=== PATIENT | male | born 1960 | race Caucasian/White ===

== ENCOUNTER → 2017-10-07 16:13 | Outpatient (CLI) | payer BC, SELFPAY ==
[2017-10-07 17:18] LABS: Absolute Lymphocyte Count 1.33 X10^3/ul (0.83-4.51); Absolute Neutrophil Count 5.4 X10^3/uL (2.0-7.7); Basophil# 0.02 X10^3/uL; Basophil% 0.3 % (0-1); Eosinophil# 0.11 X10^3/uL; Eosinophils% 1.5 % (0-5); Hematocrit 42.8 % (40-54); Hemoglobin 14.4 g/dl (13.0-16.5); Lymphocyte # 1.33 X10^3/ul (4.0); Lymphocyte % 17.7 % (19-41); Mean Corp Hgb Conc 33.6 g/gl (32-36); Mean Corpuscular Hgb 29.5 pg (27.0-32.0); Mean Corpuscular Volume 87.7 fL (80-94); Mean Platelet Vol. 9.7 fl (6.2-12.0); Monocyte# 0.68 X10^3/uL; Neutrophil # 5.39 X10^3/uL (2.7-7.7); Neutrophil % 71.5 % (47-70); Platelet Count 353 K/mm3 (150-450); RBC Distribution Width CV 12.9 % (11.6-14.6); RBC Distribution Width SD 41.5 fl (35.1-43.9); Red Blood Count 4.88 M/mm3 (4.6-6.2); White Blood Count 7.5 K/mm3 (4.4-11.0)
[2017-10-07 17:19] LABS: POSITIVE COUNT NO; POSITIVE DIFFERENTIAL NO; POSITIVE MORPHOLOGY NO
[2017-10-07 18:02] LABS: ALB/GLOB Ratio 1.1 RATIO (0.9-2.4); AST(SGOT) 18 U/L (15-37); Alanine Aminotransfer ALT/SGPT 19 U/L (16-61); Albumin, Serum 3.8 g/dL (3.2-5.0); Alkaline Phosphatase 45 U/L (45-117); Anion Gap 11 (5-15); BUN 18 mg/dL (7-18); BUN/Creat Ratio 15.3 RATIO (10-20); Calcium,Total 8.8 mg/dL (8.5-10.1); Chloride 108 mmol/L (98-107); Creatinine, Serum 1.18 mg/dL (0.70-1.30); EST Glomerular Filtration Rate 68 mL/min (>60); Est Glom Filt Rate - Afr Amer 82 mL/min (>60); Globulin 3.6 g/dL (2.2-4.2); Glucose 85 mg/dL (74-106); Potassium 3.7 mmol/L (3.5-5.1); Protein, Total 7.4 g/dL (6.4-8.2); Sodium Level 141 mmol/L (136-145)
[2017-10-08 06:50] LABS: Base Excess 0 mmol/L (-2 to +2); Bicarbonate 25.2 mmol/L (22-26); Blood Gas Specimen Type ART; O2 Delivery Device Room Air; PO2 87 mmHG (75-100); SITE R Brachial; SO2 96 % (95-99); Time Given 1650; Total Carbon Dioxide 26 mmol/L; pCO2 41.4 mmHg (35-45); pH 7.39 (7.35-7.45)
== END ==
PROVIDERS: Family Provider Family Medicine; PCP Family Medicine; Visit Provider Internal Medicine
DX: R23.0 Cyanosis (principal)
CPT/HCPCS: 36415; 36600; 80053; 82803; 85025

== ENCOUNTER 2018-01-03 13:03 | Observation (INO) | payer BC, SELFPAY ==
[2018-01-03] VITALS (11 sets, daily range): BP systolic 106–158; BP diastolic 59–105; PULSE 58–85; RESP 16–19; TEMP 36.4–37.1; O2SAT 96–100; BMI 28.3; BMI 26.5; BMI 26.6; BMI 26.7
--- NOTE | 2018-01-03 13:06 | CT_ITS ---
STUDY: CTA OF THE BRAIN REASON FOR EXAM: Male, 57 years old. Stroke protocol. RADIATION DOSAGE (If Supplied By Facility): CTDIvol = ( 15.0+15.6 ) mGy, DLP = ( 580.87 ) mGycm TECHNIQUE: CT angiography was performed with a multi-detector CT scanner. Data acquisition was obtained from the skull base through the vertex following intravenous administration of ml of . MIP images were reconstructed from the axial data set. Post-processing of the angiographic images was performed, with multiplanar reformation and 3D reconstruction. Individualized dose optimization techniques were used for this CT. COMPARISON: None. FINDINGS: HEAD AND NECK OVERVIEW: Apical lungs clear, apical thoracic cage intact, superior mediastinal normal. No supraclavicular mass or lymphadenopathy. There are multiple tiny low-density nodules of the thyroid gland bilaterally without dominant nodule. There is no cervical mass or lymphadenopathy. Pharyngeal and laryngeal structures appear normal. Normal appearance of the parotid and submandibular glands. Mild multilevel cervical disc degeneration with uncovertebral joint hypertrophy contributing to mild foraminal narrowing at C3-C4. Craniofacial osseous structures intact. There are multiple retention cyst at the bases of the maxillary sinuses bilaterally greater on the left. Mildly comparison thickening of the anterior ethmoids. Mastoid air cells and middle ear cavities clear. ORBITAL CONTENTS, SCALP, SUPERFICIAL FACIAL AND DEEP FACIAL SOFT TISSUES EXHIBIT NO ACUTE PROCESS. CERVICAL VASCULATURE: Normal aorta without plaque, widely patent three-vessel cervical arch branching. Normal subclavian arteries. Tiny focus of calcified plaque right carotid bulb without stenosis. Otherwise normal bilateral carotid arteries. No dissection. Normal bilateral cervical vertebral arteries. INTRACRANIAL VASCULATURE: Normal enhancement and arborization of the dural venous sinuses and major venous tributaries. Normal supraclinoid ICA. Normal anterior and posterior communicating arteries. Normal bilateral anterior and middle cerebral arteries. Normal enhancement of the bilateral ophthalmic arteries. Normal intracranial vertebral arteries, basilar artery, major cerebellopontine divisions and posterior cerebral arteries. BRAIN PARENCHYMA: No acute process. No chronic involutional changes. No intracranial bleed. IMPRESSION: Normal appearance of the cervical and intracranial arterial vasculature. Normal appearance of the dural venous sinuses and major venous tributaries. Chronic paranasal sinus disease. Normal appearance of the orbital contents, optic nerves, ophthalmic arteries, optic chiasm and suprasellar cistern and optic radiations. N.B. : The above information has been verbally conveyed by Joao Melendez MD to Dr New MD, on 01/03/2018 13:56:26 (ET). Electronically Signed: Joao Melendez MD at 13:50 EST Tel , Service support , STUDY: CTA NECK WITH CONTRAST REASON FOR EXAM: Male, 57 years old. Stroke protocol. RADIATION DOSAGE (If Supplied By Facility): CTDIvol = ( 15.0+15.6 ) mGy, DLP = ( 580.87 ) mGycm TECHNIQUE: CT angiography was performed with a multi-detector CT scanner. Data acquisition was obtained from the skull base through the vertex following intravenous administration of ml of . MIP images were reconstructed from the axial data set. Post-processing of the angiographic images was performed, with multiplanar reformation and 3D reconstruction. Individualized dose optimization techniques were used for this CT. COMPARISON: None. FINDINGS: HEAD AND NECK OVERVIEW: Apical lungs clear, apical thoracic cage intact, superior mediastinal normal. No supraclavicular mass or lymphadenopathy. There are multiple tiny low-density nodules of the thyroid gland bilaterally without dominant nodule. There is no cervical mass or lymphadenopathy. Pharyngeal and laryngeal structures appear normal. Normal appearance of the parotid and submandibular glands. Mild multilevel cervical disc degeneration with uncovertebral joint hypertrophy contributing to mild foraminal narrowing at C3-C4. Craniofacial osseous structures intact. There are multiple retention cyst at the bases of the maxillary sinuses bilaterally greater on the left. Mildly comparison thickening of the anterior ethmoids. Mastoid air cells and middle ear cavities clear. Orbital contents, scalp, superficial facial and deep facial soft tissues exhibit no acute process. CERVICAL VASCULATURE: Normal aorta without plaque, widely patent three-vessel cervical arch branching. Normal subclavian arteries. Tiny focus of calcified plaque right carotid bulb without stenosis. Otherwise normal bilateral carotid arteries. No dissection. Normal bilateral cervical vertebral arteries. INTRACRANIAL VASCULATURE: Normal enhancement and arborization of the dural venous sinuses and major venous tributaries. Normal supraclinoid ICA. Normal anterior and posterior communicating arteries. Normal bilateral anterior and middle cerebral arteries. Normal enhancement of the bilateral ophthalmic arteries. Normal intracranial vertebral arteries, basilar artery, major cerebellopontine divisions and posterior cerebral arteries. BRAIN PARENCHYMA: No acute process. No chronic involutional changes. No intracranial bleed. CT/CTA Head W/WO Contrast IMPRESSION: Normal appearance of the cervical and intracranial arterial vasculature. Normal appearance of the dural venous sinuses and major venous tributaries. Chronic paranasal sinus disease. Normal appearance of the orbital contents, optic nerves, ophthalmic arteries, optic chiasm and suprasellar cistern and optic radiations. Stenosis (if any)is quantified according to The [place] Symptomatic Carotid Endarterectomy Trial (NASCET). Marta H, et al. Quantitative Vascular Measurements in Arterial Occlusive Disease. RadioGraphics 2005;25:4911-7222. N.B. : The above information has been verbally conveyed by Joao Melendez MD to Dr New MD, on 01/03/2018 13:56:26 (ET). Electronically Signed: Joao Melendez MD at 13:57 EST Tel , Service support ,
--- NOTE | 2018-01-03 13:06 | CT_ITS ---
STUDY: CT BRAIN WITHOUT CONTRAST REASON FOR EXAM: Male, 57 years old. Stroke RADIATION DOSAGE (If Supplied By Facility): CTDIvol = ( 60.81 ) mGy, DLP = ( 1044.28 ) mGycm TECHNIQUE: Transaxial CT imaging of the brain was performed without administration of intravenous contrast material. Coronal and sagittal 2-D MPR Individualized dose optimization techniques were used for this CT. COMPARISON: None. FINDINGS: There are multiple mucous retention cyst at the base of the left maxillary sinus. There is mildly comparison thickening within the anterior ethmoid air cells bilaterally. The mastoid air cells and middle ear cavities are clear. Symmetric and grossly normal features of the vestibular and acoustic apparatus of the temporal bones. Craniofacial osseous structures are intact. Extra cranial soft tissues including orbital contents appear normal. The brain parenchyma appears normal in morphology and attenuation characteristics throughout with no acute intracranial bleed, mass or mass effect nor any specific evidence of territorial infarct. Normal features of the pituitary, brainstem. There is slight cerebellar tonsillar ectopia, mildly crowding the brainstem at the foramen magnum, but unlikely to meet criteria for Chiari malformation. CT/Brain/Head without Contrast IMPRESSION: No acute intracranial process. ASPECTS score: 10 N.B. : The above information has been verbally conveyed by Joao Melendez MD to Koby Wolff on 01/03/2018 13:30:04 (ET). Electronically Signed: Joao Melendez MD at 13:29 EST Tel , Service support ,
--- NOTE | 2018-01-03 13:06 | EKG12_ITS ---
Test Reason : STROKE ALERT Blood Pressure : / mmHG Vent. Rate : 073 BPM Atrial Rate : 073 BPM P-R Int : 142 ms QRS Dur : 094 ms QT Int : 384 ms P-R-T Axes : 068 007 020 degrees QTc Int : 423 ms Normal sinus rhythm Poor R wave progression Non specific T wave abnormality Confirmed by JANELLE MORALES MD ([id number]), fan mail editor CLAIRE BARNETT ([id number]) on 01/05/2018 4:17:10 PM Also confirmed by JUNG VEGA MD ([id number]), fan mail editor CLAIRE BARNETT ([id number]) on 01/05/2018 4:17:55 PM Referred By: PATSY Confirmed By:JUNG VEGA MD
--- NOTE | 2018-01-03 13:06 | CT_ITS ---
STUDY: CTA OF THE BRAIN REASON FOR EXAM: Male, 57 years old. Stroke protocol. RADIATION DOSAGE (If Supplied By Facility): CTDIvol = ( 15.0+15.6 ) mGy, DLP = ( 580.87 ) mGycm TECHNIQUE: CT angiography was performed with a multi-detector CT scanner. Data acquisition was obtained from the skull base through the vertex following intravenous administration of ml of . MIP images were reconstructed from the axial data set. Post-processing of the angiographic images was performed, with multiplanar reformation and 3D reconstruction. Individualized dose optimization techniques were used for this CT. COMPARISON: None. FINDINGS: HEAD AND NECK OVERVIEW: Apical lungs clear, apical thoracic cage intact, superior mediastinal normal. No supraclavicular mass or lymphadenopathy. There are multiple tiny low-density nodules of the thyroid gland bilaterally without dominant nodule. There is no cervical mass or lymphadenopathy. Pharyngeal and laryngeal structures appear normal. Normal appearance of the parotid and submandibular glands. Mild multilevel cervical disc degeneration with uncovertebral joint hypertrophy contributing to mild foraminal narrowing at C3-C4. Craniofacial osseous structures intact. There are multiple retention cyst at the bases of the maxillary sinuses bilaterally greater on the left. Mildly comparison thickening of the anterior ethmoids. Mastoid air cells and middle ear cavities clear. ORBITAL CONTENTS, SCALP, SUPERFICIAL FACIAL AND DEEP FACIAL SOFT TISSUES EXHIBIT NO ACUTE PROCESS. CERVICAL VASCULATURE: Normal aorta without plaque, widely patent three-vessel cervical arch branching. Normal subclavian arteries. Tiny focus of calcified plaque right carotid bulb without stenosis. Otherwise normal bilateral carotid arteries. No dissection. Normal bilateral cervical vertebral arteries. INTRACRANIAL VASCULATURE: Normal enhancement and arborization of the dural venous sinuses and major venous tributaries. Normal supraclinoid ICA. Normal anterior and posterior communicating arteries. Normal bilateral anterior and middle cerebral arteries. Normal enhancement of the bilateral ophthalmic arteries. Normal intracranial vertebral arteries, basilar artery, major cerebellopontine divisions and posterior cerebral arteries. BRAIN PARENCHYMA: No acute process. No chronic involutional changes. No intracranial bleed. IMPRESSION: Normal appearance of the cervical and intracranial arterial vasculature. Normal appearance of the dural venous sinuses and major venous tributaries. Chronic paranasal sinus disease. Normal appearance of the orbital contents, optic nerves, ophthalmic arteries, optic chiasm and suprasellar cistern and optic radiations. N.B. : The above information has been verbally conveyed by Joao Melendez MD to Dr New MD, on 01/03/2018 13:56:26 (ET). Electronically Signed: Joao Melendez MD at 13:50 EST Tel , Service support , STUDY: CTA NECK WITH CONTRAST REASON FOR EXAM: Male, 57 years old. Stroke protocol. RADIATION DOSAGE (If Supplied By Facility): CTDIvol = ( 15.0+15.6 ) mGy, DLP = ( 580.87 ) mGycm TECHNIQUE: CT angiography was performed with a multi-detector CT scanner. Data acquisition was obtained from the skull base through the vertex following intravenous administration of ml of . MIP images were reconstructed from the axial data set. Post-processing of the angiographic images was performed, with multiplanar reformation and 3D reconstruction. Individualized dose optimization techniques were used for this CT. COMPARISON: None. FINDINGS: HEAD AND NECK OVERVIEW: Apical lungs clear, apical thoracic cage intact, superior mediastinal normal. No supraclavicular mass or lymphadenopathy. There are multiple tiny low-density nodules of the thyroid gland bilaterally without dominant nodule. There is no cervical mass or lymphadenopathy. Pharyngeal and laryngeal structures appear normal. Normal appearance of the parotid and submandibular glands. Mild multilevel cervical disc degeneration with uncovertebral joint hypertrophy contributing to mild foraminal narrowing at C3-C4. Craniofacial osseous structures intact. There are multiple retention cyst at the bases of the maxillary sinuses bilaterally greater on the left. Mildly comparison thickening of the anterior ethmoids. Mastoid air cells and middle ear cavities clear. Orbital contents, scalp, superficial facial and deep facial soft tissues exhibit no acute process. CERVICAL VASCULATURE: Normal aorta without plaque, widely patent three-vessel cervical arch branching. Normal subclavian arteries. Tiny focus of calcified plaque right carotid bulb without stenosis. Otherwise normal bilateral carotid arteries. No dissection. Normal bilateral cervical vertebral arteries. INTRACRANIAL VASCULATURE: Normal enhancement and arborization of the dural venous sinuses and major venous tributaries. Normal supraclinoid ICA. Normal anterior and posterior communicating arteries. Normal bilateral anterior and middle cerebral arteries. Normal enhancement of the bilateral ophthalmic arteries. Normal intracranial vertebral arteries, basilar artery, major cerebellopontine divisions and posterior cerebral arteries. BRAIN PARENCHYMA: No acute process. No chronic involutional changes. No intracranial bleed. CT/CTA Neck W/WO Contrast IMPRESSION: Normal appearance of the cervical and intracranial arterial vasculature. Normal appearance of the dural venous sinuses and major venous tributaries. Chronic paranasal sinus disease. Normal appearance of the orbital contents, optic nerves, ophthalmic arteries, optic chiasm and suprasellar cistern and optic radiations. Stenosis (if any)is quantified according to The [place] Symptomatic Carotid Endarterectomy Trial (NASCET). Marta H, et al. Quantitative Vascular Measurements in Arterial Occlusive Disease. RadioGraphics 2005;25:7546-9214. N.B. : The above information has been verbally conveyed by Joao Melendez MD to Dr New MD, on 01/03/2018 13:56:26 (ET). Electronically Signed: Joao Melendez MD at 13:57 EST Tel , Service support ,
[2018-01-03 13:11] LABS: Bedside Glucose 144 mg/dL (70-110)
--- NOTE | 2018-01-03 13:15 | CM.ED ---
Addendum entered by Cici Dan 01/03/18 13:17: Social Work Note Suzanne does confirm that the pt does not have a living will, but reports that she is the HCPOA. DONNA Tenorio LISW Original Note: Social Work Note Responded to stroke alert. Pt's , Suzanne, present. Suzanne declines to have this SW contact anyone. 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 Reports that she they are familiar with hospitals as they had a son that was chronically ill and passed two years ago. Emotional support provided, and Suzanne made aware that SW is available if needs arise. DONNA Tenorio LISW
[2018-01-03 13:22] LABS: Absolute Lymphocyte Count 0.88 X10^3/ul (0.83-4.51); Absolute Neutrophil Count 5.1 X10^3/uL (2.0-7.7); Basophil# 0.01 X10^3/uL; Basophil% 0.2 % (0-1); Eosinophil# 0.03 X10^3/uL; Eosinophils% 0.5 % (0-5); Hematocrit 42.3 % (40-54); Hemoglobin 14.5 g/dl (13.0-16.5); Lymphocyte # 0.88 X10^3/ul (4.0); Lymphocyte % 13.8 % (19-41); Mean Corp Hgb Conc 34.3 g/gl (32-36); Mean Corpuscular Volume 87.4 fL (80-94); Mean Platelet Vol. 9.1 fl (6.2-12.0); Monocyte# 0.39 X10^3/uL; Monocyte% 6.1 % (0-10); Neutrophil # 5.08 X10^3/uL (2.7-7.7); Neutrophil % 79.4 % (47-70); Platelet Count 369 K/mm3 (150-450); RBC Distribution Width CV 12.8 % (11.6-14.6); RBC Distribution Width SD 41.1 fl (35.1-43.9); Red Blood Count 4.84 M/mm3 (4.6-6.2); White Blood Count 6.4 K/mm3 (4.4-11.0)
[2018-01-03 13:24] LABS: POSITIVE COUNT NO; POSITIVE DIFFERENTIAL NO; POSITIVE MORPHOLOGY NO
[2018-01-03 13:34] LABS: Prothrombin Time (Protime)PT. 13.3 SECONDS (11.7-14.9)
[2018-01-03 13:35] LABS: Partial Thromboplast Time 31.5 Seconds (24.1-36.2)
[2018-01-03 13:36] LABS: Anion Gap 5 (5-15); BUN 14 mg/dL (7-18); BUN/Creat Ratio 11.3 RATIO (10-20); Calcium,Total 8.6 mg/dL (8.5-10.1); Chloride 105 mmol/L (98-107); Creatinine, Serum 1.24 mg/dL (0.70-1.30); EST Glomerular Filtration Rate 64 mL/min (>60); Est Glom Filt Rate - Afr Amer 77 mL/min (>60); Estimated Creatinine Clearance 67.87 ml/min; Glucose 138 mg/dL (74-106); Potassium 3.5 mmol/L (3.5-5.1); Sodium Level 137 mmol/L (136-145)
--- NOTE | 2018-01-03 14:02 | ED.VISSUMM ---
- ER Visit Summary Date of Service: 01/03/18 Chief Complaint: Loss of left-sided vision History of Present Illness: The patient is a 57 M with no sniffing a past medical history presents because he could not see things on the left side and denied any motor weakness. This occurred while writing. He denied headache. Denied nausea vomiting. He denies trouble with speech or swallowing. He denied problems with balance or walking. He states his visual symptoms have resolved. He is a non-smoker. Physical Examination: Vital signs noted and unremarkable. NIH is 1 for altered sensation on the left side. Based on patient's description he had a left homonymous hemianopsia. Head is atraumatic normocephalic. Pupils are equal round reactive. Extraocular muscles are intact. TMs are pearly white with landmarks noted. Nares patent with no drainage. Posterior pharynx without erythema or exudate. Uvula is midline. There is no dysphonia or dysphasia. Trachea is midline. There is no stridor with auscultation of the neck. Heart is regular without murmur, gallop or rub. S1 and S2 are normal. Lungs are clear to auscultation with good movement of air bilaterally. Abdomen soft nontender. Patient is alert and oriented ?3. Motor is 5 over 5. Sensory is not intact. DTRs are symmetric with no clonus or Babinski sign. Cranial 2 through 12 are intact. Cerebellar testing is normal. Test Results: CT of the head without contrast and CTA of the head and neck were unremarkable per radiologist. CBC normal. Basic metabolic panel is marked for an elevated glucose 138. Coags normal. Emergency Department Course and Treatment: Stroke order set was initiated since patient symptoms started 1 hour prior to presentation. Case was discussed with hospitalist, neurologist and radiologist. There is evidence of chronic sinus problems. Differential includes atypical migraine headache, TIA, stroke Treatment Plan: PCU 23 observation for further testing Disposition: PCU Impression: Right hemispheric TIA with left homonymous hemianopsia and altered sensation left This note was generated with [employer] dictation software. It may contain incorrect words, spelling, and punctuation that were not noted in review of the chart prior to signing ED Disposition - Plan for ED Patient: Chief Complaint: Neuro S/Sx Referrals: Edvin Tobar DO [Primary Care Provider] -
--- NOTE | 2018-01-03 14:07 | ED.DCSUM_ITS ---
- ER Visit Summary Date of Service: 01/03/18 Chief Complaint: Loss of left-sided vision History of Present Illness: The patient is a 57 M with no sniffing a past medical history presents because he could not see things on the left side and denied any motor weakness. This occurred while writing. He denied headache. Denied nausea vomiting. He denies trouble with speech or swallowing. He denied problems with balance or walking. He states his visual symptoms have resolved. He is a non-smoker. Physical Examination: Vital signs noted and unremarkable. NIH is 1 for altered sensation on the left side. Based on patient's description he had a left homonymous hemianopsia. Head is atraumatic normocephalic. Pupils are equal round reactive. Extraocular muscles are intact. TMs are pearly white with landmarks noted. Nares patent with no drainage. Posterior pharynx without er ythema or exudate. Uvula is midline. There is no dysphonia or dysphasia. Trachea is midline. There is no stridor with auscultation of the neck. Heart is regular without murmur, gallop or rub. S1 and S2 are normal. Lungs are clear to auscultation with good movement of air bilaterally. Abdomen soft nontender. Patient is alert and oriented ?3. Motor is 5 over 5. Sensory is not intact. DTRs are symmetric with no clonus or Babinski sign. Cranial 2 through 12 are intact. Cerebellar testing is normal. Test Results: CT of the head without contrast and CTA of the head and neck were unremarkable per radiologist. CBC normal. Basic metabolic panel is marked for an elevated glucose 138. Coags normal. Emergency Department Course and Treatment: Stroke order set was initiated since patient symptoms started 1 hour prior to presentation. Case was discussed with hospitalist, neurologist and radiologist. There is evidence of chronic sinus problems. Differential includes atypical migraine headache, TIA, stroke Treatment Plan: PCU 23 observation for further testing Disposition: PCU Impression: Right hemispheric TIA with left homonymous hemianopsia and altered sensation left This note was generated with [employer] software. It may contain incorrect words, spelling, and punctuation that were not noted in review of the chart prior to signing ED Disposition - Plan for ED Patient: Chief Complaint: Neuro S/Sx Referrals: Edvin Tobar DO [Primary Care Provider] -
--- NOTE | 2018-01-03 15:33 | MRI_ITS ---
STUDY: MRI BRAIN WITHOUT CONTRAST REASON FOR EXAM: Male, 57 years old. CVA TECHNIQUE: Standardized multiplanar fat and water weighted pulse sequences were obtained. COMPARISON: CT of the brain on January 03, 2018 FINDINGS: Normal size of the ventricles and extra-axial spaces for the patient's age. Minor periventricular white matter ischemic changes without mass effect or restricted diffusion. Normal bilateral basal ganglia. Normal thalami. There is no extra-axial fluid accumulation. Normal flow voids within the major intracranial circulation suggesting patency by spin echo criteria. Partial empty sella deformity likely of no significance. Normal, infundibular stalk, optic chiasm and hypothalamus. Normal tectal plate and pineal gland. Normal midbrain, wagner and medulla. Normal cerebellum. Normal basal cisterns. Normal bilateral temporal bones. Normal bilateral internal auditory canals. No demonstrated orbital abnormality, within the constraints of a routine brain study. There is mucosal thickening of the maxillary and ethmoid sinuses bilaterally greater on the left. Normal calvarium and skull base. Normal visualized soft tissue structures. Normal visualized upper cervical spine. MRI/Brain without Contrast IMPRESSION: Minor periventricular white matter ischemic changes without evidence for acute infarct Electronically Signed: Tone Mclaughlin MD at 23:19 EST , Service support ,
--- NOTE | 2018-01-03 16:19 | PCM.HP.STD ---
Problem List (1) TIA (transient ischemic attack) Status: Acute (2) Fingernails, bluish Status: Chronic (3) RLL pneumonia Status: Resolved History of Present Illness Date of Admission: 01/03/18 Chief Complaint: Left-sided blurry vision/sudden blindness The patient is a 57 year old M with no significant past medical history except a history of pneumonia in the past came to ER with sudden onset of left-sided blindness while at work today. Patient also felt difficulty in finding words to express himself. This episode lasted about 20 minutes and then his dizziness started coming back. As the vision started coming back he felt mild headache/heaviness. Patient further said he is not able to see the writings on the left side. He was able to understand other people speech but was not able to find words to express himself. Denies other symptoms of weakness, numbness, involuntary movement, urinary incontinence, dysphagia. Patient denies any chest pain/pressure or missed heartbeat/arrhythmia. Patient had history of about dizziness/headache and blurry vision about 10 years ago and he saw PCP after that and was thought of migraine-like symptoms In ED, patient had CT head and CTA of head and neck that were read unremarkable by the radiologist. EKG shows normal sinus rhythm at 73 bpm. Normal QRS duration 94 ms. [] Basic lab work was unremarkable except glucose and BMP 138 and Accu-Chek glucose 144. Past Medical History Past Medical History (Chronic Problems): Chronic Problems (Last Updated 10/07/17 @ 15:23 by Marcie Duffy) Fingernails, bluish (Chronic) Medical History: Medical History (Last Updated 10/07/17 @ 15:23 by Marcie Duffy) Heart murmur R01.1 High cholesterol E78.00 Allergies No Known Allergies Allergy (Verified 03/10/17 17:41) Home Medications: Ambulatory Orders Medication Instructions Recorded loratadine 10 mg tablet 10 mg PO DAILY 10/07/17 Surgical History: Surgical History (Last Updated 10/07/17 @ 15:31 by Marcie Duffy) History of hernia repair Z98.890, Z87.19 Smoking Status: Never smoker Tobacco Use: Non-smoker - *Family History Paternal Family History: Family History (Last Updated 10/07/17 @ 15:32 by Marcie Duffy) Mother CVA (cerebral vascular accident) Thyroid disorder Father Heart disease Brother Thyroid disorder History Items: Heart Disease Review of Systems Constitutional: Denies: Chills, Fever, Weight Change HEENT: Reports: Head Aches, Visual Changes. Denies: Sinus Congestion, Sinus Drainage Cardiovascular: Denies: Chest Pain, Palpitations Respiratory: Denies: Cough, Shortness of breath at rest, Sputum production Gastrointestinal: Denies: Abdominal Pain, Nausea, Vomiting Genitourinary: Denies: Dysuria, Frequency, Hematuria, Hesitancy Musculoskeletal: Denies: Joint Pain, Joint Tenderness Skin: Denies: Rash, Wounds Neurological: Denies: Numbness, Tingling, Focal weakness Psychiatric: Denies: Anxiety, Depression, Homicidal Ideations, Suicidal Ideations Hematologic/ Lymphatic: Denies: Easy Bruising, Easy Bleeding VTE Information - Inpt Only VTE Present on Admission: No VTE Mechan Device Prophylaxis: None VTE Pharm Prophylaxis ordered?: Yes Patient Problems: Active and Suspected Problems (Last Updated 10/07/17 @ 15:23 by Marcie Duffy) TIA (transient ischemic attack) (Acute) - Physical Exam General: Alert, Oriented x3, Cooperative HEENT: Atraumatic, PERRLA, EOMI, Normocephalic Oral: Moist Mucosa Neck: Supple, No JVD, Negative Carotid Bruits Lungs: Clear to auscultation, Normal air movement, No rhonchi, No wheeze, No rales Cardiovascular: Regular rate, Regular Rhythm, Normal S1, Normal S2, No murmurs Abdomen: Bowel Sounds Present, Soft, Non Tender, Non-Distended Extremities: No edema, Capillary Refill Less than 3 Seconds Skin: No rashes, No breakdown Musculoskeletal: No Tenderness to Palpation of Joints or Extremities Neurological: Cranial nerves II-XII grossly intact, Deep Tendon Reflexes 2+/4 and Symmetrical, Motor Exam 5/5 strength throughout, - - NIH stroke scale of 1 as per ER physician. When I examined the patient, Gross visual confrontation test for field of vision normal. NIHSS 1 for decreased sensation. Psych/Mental Status: Normal Affect, Appropriate Vital Signs Temp Pulse Resp BP Pulse Ox 98.7 F 78 18 142/105 H 98 01/03/18 15:15 01/03/18 15:15 01/03/18 15:15 01/03/18 15:15 01/03/18 15:15 Oxygen Delivery Method Room Air Weight: 180 lb 11.2 oz Body Mass Index (BMI) 26.6 Finger Stick Blood Glucose 144 Laboratory Tests Past 24 Hrs 01/03/18 01/03/18 01/03/18 13:08 13:08 13:08 WBC 6.4 RBC 4.84 Hgb 14.5 Hct 42.3 MCV 87.4 MCH 30.0 MCHC 34.3 RDW 12.8 RDW Differential 41.1 Plt Count 369 MPV 9.1 Immature Gran % (Auto) 0.000 Neut % (Auto) 79.4 H Lymph % (Auto) 13.8 L [place] % (Auto) 6.1 Eos % (Auto) 0.5 Baso % (Auto) 0.2 Absolute Neuts (auto) 5.1 Absolute Lymphs (auto) 0.88 Total Counted Not Reportable PT 13.3 INR 1.0 APTT 31.5 Sodium 137 Potassium 3.5 Chloride 105 Carbon Dioxide 27.0 Anion Gap 5 BUN 14 Creatinine 1.24 Estim Creat Clear Calc 67.87 Est GFR (MDRD) Af Amer 77 Est GFR (MDRD) Non-Af 64 BUN/Creatinine Ratio 11.3 Glucose 138 H Calcium 8.6 Troponin I < 0.015 TSH 01/03/18 15:59 WBC RBC Hgb Hct MCV MCH MCHC RDW RDW Differential Plt Count MPV Immature Gran % (Auto) Neut % (Auto) Lymph % (Auto) [place] % (Auto) Eos % (Auto) Baso % (Auto) Absolute Neuts (auto) Absolute Lymphs (auto) Total Counted PT INR APTT Sodium Potassium Chloride Carbon Dioxide Anion Gap BUN Creatinine Estim Creat Clear Calc Est GFR (MDRD) Af Amer Est GFR (MDRD) Non-Af BUN/Creatinine Ratio Glucose Calcium Troponin I Pending TSH Pending POC Glucose 01/03/18 13:06 POC Glucose 144 H Assessment/Plan All Active Problems (Last Updated 10/07/17 @ 15:23 by Marcie Duffy) TIA (transient ischemic attack) (Acute) RLL pneumonia (Resolved) The patient is a 57 year old M with no significant past medical history except a history of pneumonia in the past came to ER with sudden onset of left-sided blindness while at work today. Patient also felt difficulty in finding words to express himself. This episode lasted about 20 minutes and then his dizziness started coming back. As the vision started coming back he felt mild headache/heaviness. Patient further said he is not able to see the writings on the left side. He was able to understand other people speech but was not able to find words to express himself. Denies other symptoms of weakness, numbness, involuntary movement, urinary incontinence, dysphagia. Patient denies any chest pain/pressure or missed heartbeat/arrhythmia. Patient had history of about dizziness/headache and blurry vision about 10 years ago and he saw PCP after that and was thought of migraine-like symptoms In ED, patient had CT head and CTA of head and neck that were read unremarkable by the radiologist. EKG shows normal sinus rhythm at 73 bpm. Normal QRS duration 94 ms. [] Basic lab work was unremarkable except glucose and BMP 138 and Accu-Chek glucose 144. 1. Acute loss of vision on left sides possible left homonymous hemianopia suggestive of TIA:, Patient is being admitted in PCU. Stroke protocol with monitor and storage bin tender, cardiac enzymes, EKG, aspirin and statin. PT/OT and speech management. CT head does not show any acute change. CTA of head shows normal appearance of cervical and intracranial arterial vasculature. 2D echo ordered. Neurologist consult. MRI brain ordered. 2. Other possible diagnosis probably atypical migraine as there is doubtful history of migraine in the past: 3. Chronic sinusitis: Patient uses loratadine. Hold it. 4. DVT prophylaxis: On Lovenox 40 mg subcu daily. Clinical Impression(s) from Imaging Studies Head CTA 01/03/18 13:06 IMPRESSION: Normal appearance of the cervical and intracranial arterial vasculature. Normal appearance of the dural venous sinuses and major venous tributaries. Chronic paranasal sinus disease. Normal appearance of the orbital contents, optic nerves, ophthalmic arteries, optic chiasm and suprasellar cistern and optic radiations. Stenosis (if any)is quantified according to The [place] Symptomatic Carotid Endarterectomy Trial (NASCET). [place] H, et al. Quantitative Vascular Measurements in Arterial Occlusive Disease. [employer] 2005;25:4389-6513. Code Visit OBSV E&M: 09180 Initial observation care L3
[2018-01-03 16:45] LABS: Thyroid Stim Hormone (TSH) 3.23 uIU/mL (0.358-3.74)
--- NOTE | 2018-01-03 17:03 | CHAPLAIN ---
Type of Pastoral Visit ___ Initial Visit ___ Follow-up Visit ___ On-call Visit ___ General Patient Visit ___ Spiritual Assessment ___ Family Conference ___ Bereavement _x__ Rapid Response ___ Code Blue ___ Other (describe below) Pastoral Care Referral From _x__ Patient ___ Family ___ Nurse ___ Physician ___ Stave Cutting Supervisor ___ Surgery Technician ___ Other (describe below) Sacrament/Intervention ___ Active listening ___ Anointing ___ Orthodox ___ Bereavement ___ Communion ___ Dayana exploration ___ ___ Life review _x__ Prayer ___ Reconciliation ___ Sacrament of Sick _x__ Supportive presence ___ Wedding ___ Other (describe below) Pastoral Comments
[2018-01-03] MEDS: 0.9% NaCl Peripheral Flush Adult/Peds IV (17:22)
[2018-01-03] MEDS: 0.9% Normal Saline 1,000 ML 100 ML IV (17:22)
[2018-01-03] MEDS: Aspirin 81 MG TAB.CHEW PO (17:25)
[2018-01-03] MEDS: Enoxaparin 40 MG/0.4 ML Syringe SC (17:25)
[2018-01-03 17:26] LABS: Bedside Glucose 89 mg/dL (70-110)
[2018-01-03] MEDS: Acetaminophen 325 MG Tablet 650 MG PO (19:31)
[2018-01-03] MEDS: Famotidine 20 MG Tablet PO (21:25)
[2018-01-03] MEDS: Atorvastatin Calcium 80 MG Tablet PO (21:25)
[2018-01-03 21:36] LABS: Bedside Glucose 86 mg/dL (70-110)
[2018-01-04 03:00] VITALS: PULSE 56
[2018-01-04 03:32] VITALS: BP 109/65; PULSE 66; RESP 14; TEMP 36.6; O2SAT 100
[2018-01-04 04:33] VITALS: BMI 26.6
[2018-01-04] MEDS: 0.9% Normal Saline 1,000 ML 100 ML IV (05:26)
[2018-01-04 06:49] LABS: Cholesterol 192 mg/dL (200); High Density Lipoprotein 46 mg/dL; Triglycerides 117 mg/dL; Very Low Density Lipoprotein 23 mg/dL (5-40)
[2018-01-04 07:06] LABS: Bedside Glucose 109 mg/dL (70-110)
[2018-01-04 07:45] VITALS: BP 106/68; PULSE 73; RESP 18; TEMP 36.7; O2SAT 97
[2018-01-04 07:49] VITALS: PULSE 73
[2018-01-04 07:58] LABS: Hemoglobin A1c 5.1 % (4.2-6.3)
[2018-01-04] MEDS: Aspirin 81 MG TAB.CHEW PO (09:19)
[2018-01-04] MEDS: Famotidine 20 MG Tablet PO (09:19)
--- NOTE | 2018-01-04 09:47 | CON.PCM_ITS ---
Reason for Consult Date of Consultation: 01/04/18 Reason for Consultation: vision changes History of Present Illness: 57 yo left handed white male notes left vision changes yesterday while at work, now back to normal. similar episode 8 yrs ago. reports sinus headaches. takes claritin for sinus 3-4x per week. no tobacco, no asa. no family history of headache Per admit H&P: The patient is a 57 year old M with no significant past medical history except a history of pneumonia in the past came to ER with sudden onset of left-sided blindness while at work today. Patient also felt difficulty in finding words to express himself. This episode lasted about 20 minutes and then his dizziness started coming back. As the vision started coming back he felt mild headache/heaviness. Patient further said he is not able to see the writings on the left side. He was able to understand other people speech but was not able to find words to express himself. Denies other symptoms of weakness, numbness, involuntary movement, urinary incontinence, dysphagia. Patient denies any chest jossie n/pressure or missed heartbeat/arrhythmia. Patient had history of about dizziness/headache and blurry vision about 10 years ago and he saw PCP after that and was thought of migraine-like symptoms In ED, patient had CT head and CTA of head and neck that were read unremarkable by the radiologist. EKG shows normal sinus rhythm at 73 bpm. Normal QRS duration 94 ms. Past Medical History Past Medical History (Chronic Problems): Chronic Problems (Last Reviewed 01/04/18 @ 11:43 by Mauricio Conley MD) Fingernails, bluish (Chronic) Medical History: Medical History (Last Reviewed 01/04/18 @ 11:43 by Mauricio Conley MD) Heart murmur R01.1 High cholesterol E78.00 Allergies No Known Allergies Allergy (Verified 03/10/17 17:41) Home Medications: Ambulatory Orders Medication Instructions Recorded loratadine 10 mg tablet 10 mg PO DAILY 10/07/17 Surgical History: Surgical History (Last Reviewed 01/04/18 @ 11:43 by Mauricio Conley MD) History of hernia repair Z98.890, Z87.19 Smoking Status: Never smoker Tobacco Use: Non-smoker - *Family History Paternal Family History: Family History (Last Reviewed 01/04/18 @ 11:43 by Mauricio Conley MD) Mother CVA (cerebral vascular accident) Thyroid disorder Father Heart disease Brother Thyroid disorder History Items: Heart Disease Review of Systems Constitutional: Denies: Chills, Fever, Weight Change HEENT: Denies: Head Aches, Sinus Congestion, Sinus Drainage Cardiovascular: Denies: Chest Pain, Palpitations Respiratory: Denies: Cough, Shortness of breath at rest, Sputum production Gastrointestinal: Denies: Abdominal Pain, Nausea, Vomiting Genitourinary: Denies: Dysuria Musculoskeletal: Denies: Joint Pain, Joint Tenderness Skin: Denies: Rash, Wounds Neurological: Reports: Headaches. Denies: Focal weakness, Numbness, Tingling Psychiatric: Denies: Anxiety, Depression, Homicidal Ideations, Suicidal Ideations Hematologic/ Lymphatic: Denies: Easy Bruising, Easy Bleeding Patient Problems: Active and Suspected Problems (Last Reviewed 01/04/18 @ 11:43 by Mauricio Conley MD) TIA (transient ischemic attack) (Acute) - Physical Exam General: Alert, Oriented x3, Cooperative HEENT: Atraumatic, PERRLA, EOMI, Normocephalic Neck: Supple, No JVD, Negative Carotid Bruits Lungs: Clear to auscultation, Normal air movement Cardiovascular: Regular rate, No murmurs Abdomen: Bowel Sounds Present, Soft, Non Tender Extremities: No edema, Capillary Refill Less than 3 Seconds Skin: No rashes, No breakdown Musculoskeletal: No Tenderness to Palpation of Joints or Extremities Neurological: Cranial nerves II-XII grossly intact Psych/Mental Status: Normal Affect, Appropriate Vital Signs Temp Pulse Resp BP Pulse Ox 36.7 C 73 18 106/68 97 01/04/18 07:45 01/04/18 07:49 01/04/18 07:45 01/04/18 07:45 01/04/18 07:45 Oxygen Delivery Method Room Air Weight: 81.964 kg Body Mass Index (BMI) 26.6 Finger Stick Blood Glucose 144 Intake and Output for Last 24 Hours 01/02/18 01/03/18 01/04/18 23:59 23:59 23:59 Intake Total 684.2 / 684.2 562 / 562 Balance 684.2 / 684.2 562 / 562 Laboratory Tests Past 24 Hrs 01/03/18 01/03/18 01/03/18 13:08 13:08 13:08 WBC 6.4 RBC 4.84 Hgb 14.5 Hct 42.3 MCV 87.4 MCH 30.0 MCHC 34.3 RDW 12.8 RDW Differential 41.1 Plt Count 369 MPV 9.1 Immature Gran % (Auto) 0.000 Neut % (Auto) 79.4 H Lymph % (Auto) 13.8 L [place] % (Auto) 6.1 Eos % (Auto) 0.5 Baso % (Auto) 0.2 Absolute Neuts (auto) 5.1 Absolute Lymphs (auto) 0.88 Total Counted Not Reportable PT 13.3 INR 1.0 APTT 31.5 Sodium 137 Potassium 3.5 Chloride 105 Carbon Dioxide 27.0 Anion Gap 5 BUN 14 Creatinine 1.24 Estim Creat Clear Calc 67.87 Est GFR (MDRD) Af Amer 77 Est GFR (MDRD) Non-Af 64 BUN/Creatinine Ratio 11.3 Glucose 138 H Hemoglobin A1c Calcium 8.6 Troponin I < 0.015 Triglycerides Cholesterol LDL Cholesterol VLDL Cholesterol HDL Cholesterol TSH 01/03/18 01/03/18 01/04/18 15:59 18:53 05:30 WBC RBC Hgb Hct MCV MCH MCHC RDW RDW Differential Plt Count MPV Immature Gran % (Auto) Neut % (Auto) Lymph % (Auto) [place] % (Auto) Eos % (Auto) Baso % (Auto) Absolute Neuts (auto) Absolute Lymphs (auto) Total Counted PT INR APTT Sodium Potassium Chloride Carbon Dioxide Anion Gap BUN Creatinine Estim Creat Clear Calc Est GFR (MDRD) Af Amer Est GFR (MDRD) Non-Af BUN/Creatinine Ratio Glucose Hemoglobin A1c Calcium Troponin I < 0.015 < 0.015 Triglycerides 117 Cholesterol 192 LDL Cholesterol 123 VLDL Cholesterol 23 HDL Cholesterol 46 TSH 3.23 01/04/18 05:30 WBC RBC Hgb Hct MCV MCH MCHC RDW RDW Differential Plt Count MPV Immature Gran % (Auto) Neut % (Auto) Lymph % (Auto) [place] % (Auto) Eos % (Auto) Baso % (Auto) Absolute Neuts (auto) Absolute Lymphs (auto) Total Counted PT INR APTT Sodium Potassium Chloride Carbon Dioxide Anion Gap BUN Creatinine Estim Creat Clear Calc Est GFR (MDRD) Af Amer Est GFR (MDRD) Non-Af BUN/Creatinine Ratio Glucose Hemoglobin A1c 5.1 Calcium Troponin I Triglycerides Cholesterol LDL Cholesterol VLDL Cholesterol HDL Cholesterol TSH POC Glucose 01/04/18 01/03/18 01/03/18 06:55 21:23 17:18 POC Glucose 109 86 89 01/03/18 13:06 POC Glucose 144 H MRI reviewed, no acute. CTA of the head and neck reviewed, no significant carotid or vertebral stenosis Current Home Med List Medication Instructions Recorded Confirmed Type loratadine 10 mg tablet 10 mg PO DAILY 10/07/17 01/03/18 History Current Medications Generic Name Dose Route Start Last Admin Trade Name Freq PRN Reason Stop Dose Admin Acetaminophen 650 mg 01/03/18 15:33 01/03/18 19:31 Tylenol PO 650 mg Q4H PRN PRN Administration Headache/Temp>99F Aspirin 81 mg 01/03/18 16:45 01/04/18 09:19 Aspirin, Baby PO 81 mg DAILY@0800 ADDY Administration Atorvastatin Calcium 80 mg 01/03/18 22:00 01/03/18 21:25 Lipitor PO 80 mg QHS ADDY Administration Dextrose 0 gm 01/03/18 16:33 D50w Syringe IV X1 PRN Hypoglycemia Protocol Enoxaparin Sodium 40 mg 01/03/18 16:33 01/04/18 09:20 Lovenox SC Not Given DAILY ADDY Famotidine 20 mg 01/03/18 22:00 01/04/18 09:19 Pepcid PO 20 mg BID ADDY Administration Glucagon 1 mg 01/03/18 16:33 IM .X1 PRN Hypoglycemia Sodium Chloride 1,000 mls @ 100 mls/hr 01/03/18 15:35 01/04/18 05:26 IV 100 mls/hr .Q10H ADDY Administration Insulin Human Lispro 0 unit 01/03/18 22:00 01/04/18 11:32 Humalog Kwikpen (Bkc) SQ Not Given ACHS ADDY Protocol Sodium Chloride 5 - 30 ml 01/03/18 15:50 01/03/18 17:22 IV 10 ml UD PRN Administration SALINE FLUSH Assessment/Plan All Active Problems (Last Reviewed 01/04/18 @ 11:43 by Mauricio Conley MD) TIA (transient ischemic attack) (Acute) RLL pneumonia (Resolved) classic migraine aura, followed by headache, now resolved. also describes component of word finding difficulty. complicated by insomnia and stress, pt describes stress as primary problem lexapro 10mg f/u op with neuro and ent imaging negative ok to dc otherwise
[2018-01-04 11:09] VITALS: PULSE 78
--- NOTE | 2018-01-04 12:00 | DCINST_ITS ---
- Discharge Diagnoses Current Active Problems: Current Active and Chronic Problems (Last Reviewed 01/04/18 @ 11:43 by Mauricio Conley MD) TIA (transient ischemic attack) (Acute) You will use the following diet at home:: No restrictions Your food should be the consistency of: Regular Your liquids should be the consistency of: Regular/Thin Discharge Activity: Return to Normal Activity Weight Bearing Status: Full weight bearing Allergies/Adverse Reactions: Allergies No Known Allergies Allergy (Verified 03/10/17 17:41) Medications to take at Discharge loratadine 10 mg tablet 10 mg PO DAILY 10/07/17 Primary Care Physician: Edvin Tobar DO [Primary Care Provider] - Please follow up with your Primary Care Physician in: in one week Test Results: Test results from this visit will be discussed in further detail at your follow- up appointment, if applicable.
--- NOTE | 2018-01-06 14:35 | PCM.DC.SUM ---
Discharge Date and Diagnosis Date of Admission: 01/03/18 Date of Discharge: 01/04/18 - Primary Discharge Diagnosis #1 acute migraine - Secondary Discharge Diagnosis Chronic Problems (Last Reviewed 01/04/18 @ 11:43 by Mauricio Conley MD) Fingernails, bluish (Chronic) Hospital Course and Treatment Operations: None Procedures: None Summary of Care Provided: The patient is a 57 year old M was seen in the emergency room at [facility] with complaints of sudden onset of left-sided blindness while at work, patient also complained of difficulty in finding words when speaking. Patient also complained of headache when his vision returned to normal. Workup in the emergency room included a CT of the head and neck as well as a CT of the head all of which were unremarkable. CBC was normal, basic metabolic panel showed a blood glucose of 138 but was otherwise unremarkable. Patient was placed on PCU under observation status for possible TIA, he was seen in consultation by neurology who felt his symptoms were in keeping with migraine, MRI of the brain was performed and was unremarkable. Physical exam on 01/04/18: On examination he appeared in good health and spirits. Vital signs as documented. Skin warm and dry and without overt rashes. Neck without JVD. Lungs clear. Heart exam notable for regular rhythm, normal sounds and absence of murmurs, rubs or gallops. Abdomen unremarkable and without evidence of organomegaly, masses, or abdominal aortic enlargement. Extremities nonedematous. Neuro: Cranial nerves II through XII are grossly intact, no focal motor deficits were noted. Psych: Patient was alert and oriented x3, he did not appear anxious or depressed. Patient was seen and examined on 01/04/18, he was discharged to home in stable condition, he was not discharged on Lexapro-I felt uncomfortable giving him this prescription and instead referred him to his primary care physician to discuss the use of this medication. - Physical Exam Vital Signs Temp Pulse Resp BP Pulse Ox 98.1 F 78 18 106/68 97 01/04/18 07:45 01/04/18 11:09 01/04/18 07:45 01/04/18 07:45 01/04/18 07:45 Oxygen Delivery Method Room Air Weight: 81.964 kg Body Mass Index (BMI) 26.6 Finger Stick Blood Glucose 144 Intake and Output for Last 24 Hours 01/04/18 01/05/1818 23:59 23:59 23:59 Intake Total 1406 / 1406 Output Total Balance 1404 / 1404 Discharge Activity: Return to Normal Activity Weight Bearing Status: Full weight bearing Home Medications: Medications to take at Discharge loratadine 10 mg tablet 10 mg PO DAILY 10/07/17 Primary Care Physician: Edvin Tobar DO [Primary Care Provider] - Please follow up with your Primary Care Physician in: in one week Disposition: Home Minutes spent on discharge:: 32 Patient Condition:: Stable Medical Necessity - Tobacco Use Smoking Status: Never smoker Tobacco Use: Non-smoker Meaningful Use Info Meaningful Use Diagnoses (Choose all that apply): None applicable Code Visit OBSV E&M: 65765 Observation care discharge
== END 2018-01-04 12:00 | disposition home or self-care (01) ==
LOC: ED 13:10 → PCU 14:15
PROVIDERS: Admitting Provider Internal Medicine; Emergency Provider Emergency Medicine; Family Provider Family Medicine; PCP Family Medicine; Visit Provider Internal Medicine
DX: G43.109 Migraine with aura, not intractable, without status migrainosus (principal); R29.701 NIHSS score 1; H53.462 Homonymous bilateral field defects, left side; E78.00 Pure hypercholesterolemia, unspecified; R01.1 Cardiac murmur, unspecified; J32.9 Chronic sinusitis, unspecified; Z79.899 Other long term (current) drug therapy
CPT/HCPCS: 36415; 70450; 70496; 70498; 70551; 80048; 80061; 82962; 83036; 84443; 84484; 85025; 85610; 85730; 92523; 93005; 96360; 96361; 96372; 97161; 97165; 99218; 99285; J7030; Q9967; A4216; G0378

== ENCOUNTER → 2018-03-29 11:17 | Outpatient (CLI) | payer BC, SELFPAY ==
[2018-03-29 10:39] VITALS: BMI 26.6
[2018-03-29 12:33] LABS: PSA,Total - Annual Screen 0.48 ng/mL (0.00-4.00)
== END ==
PROVIDERS: Family Provider Family Medicine; PCP Family Medicine; Visit Provider Family Medicine
DX: Z87.898 Personal history of other specified conditions (principal)
CPT/HCPCS: 36415; 84153; G0103

== ENCOUNTER 2019-03-13 10:08 | Inpatient (IN) | payer BC, SELFPAY ==
[2018-11-30 08:46] VITALS: BMI 26.9
[2019-03-13] VITALS (13 sets, daily range): BP systolic 115–151; BP diastolic 55–90; PULSE 64–76; RESP 16–20; TEMP 36.6–37.4; O2SAT 95–98; BMI 27.7; BMI 27.8; BMI 26.2
--- NOTE | 2019-03-13 10:33 | CT_ITS ---
STUDY: CT ABDOMEN AND PELVIS WITHOUT CONTRAST REASON FOR EXAM: Male, 58 years old. FELL ONTO FORKLIFT, LEFT SIDE PAIN WITH RESPIRATIONS. RADIATION DOSAGE (If Supplied By Facility): CTDIvol = ( 14.58 ) mGy, DLP = ( 762.87 ) mGycm TECHNIQUE: Transaxial images were obtained from the dome of the diaphragm to the symphysis pubis without oral contrast, and without intravenous contrast. Sagittal and coronal images were reconstructed. Individualized dose optimization techniques were used for this CT. COMPARISON: None. FINDINGS: Mild increased markings at the left lung base. Small left pneumothorax. There is a nondisplaced fracture of the anterior lateral aspect of the left eighth rib with small amount of the subcutaneous emphysema overlying the left lower anterior chest wall. The visualized portions of the heart are within normal limits. Normal liver. Normal gallbladder and extrahepatic biliary system. Normal spleen. Normal pancreas. Normal bilateral adrenal glands. Scattered small bilateral renal cysts. There is a small hiatal hernia. Normal small intestine. Normal colon. The appendix is visualized and appears normal. Normal abdominal aorta. Normal inferior vena cava. Normal retroperitoneum. Normal urinary bladder. There is a small umbilical hernia containing fat. Small left inguinal hernia containing fat. Grade 2 anterior listhesis of L5 on S1 with spondylolysis of the pars interarticularis of the L5 vertebrae. Disc space narrowing and disc degeneration at the L5-S1 level. CT/Abdomen/Pelvis W IV Cont ONLY IMPRESSION: Nondisplaced fracture along the anterior lateral aspect of the left eighth rib with evidence of a small left pneumothorax and increased markings at the left lung base suggestive of a basilar atelectasis and/or possible contusion. Great 2 anterolisthesis of L5 on S1 with spondylolysis. Small bilateral renal cysts. Electronically Signed: Andrzej Steen, at 11:55 EST , Service support ,
--- NOTE | 2019-03-13 10:33 | CT_ITS ---
STUDY: CT CHEST WITH CONTRAST REASON FOR EXAM: Male, 58 years old. FALL ONTO FORKLIFT, LEFT SIDE PAIN WITH RESPIRATIONS. RADIATION DOSAGE (If Supplied By Facility): CTDIvol = ( 16.70 ) mGy, DLP = ( 279.90 ) mGycm TECHNIQUE: Transaxial imaging was performed following intravenous administration of IV 100mL Isovue-300. Multiplanar coronal and sagittal images were reformatted. Individualized dose optimization techniques were used for this CT. COMPARISON: None. FINDINGS: Small anterior left lower pneumothorax. Increased markings at the lung bases worse on the left side. Normal heart and pericardium. Normal mediastinum. Normal hilar regions. Normal enhanced pulmonary arteries. Normal aorta arch and descending thoracic aorta. Nondisplaced fracture along the anterior lateral aspect of the right eighth rib with a small amount of subcutaneous emphysema at that site. Small hiatal hernia. CT/Chest WITH Contrast IMPRESSION: Nondisplaced fracture along the anterior lateral aspect of the left eighth rib with a small left anterior pneumothorax and possible left basilar pulmonary contusion and/or atelectasis. Electronically Signed: Andrzej Steen, at 11:57 EST , Service support ,
--- NOTE | 2019-03-13 10:35 | ED.VISSUMM ---
- ER Visit Summary Date of Service: 03/13/19 Chief Complaint: Fall with left rib cage and left abdominal trauma History of Present Illness: The patient is a 58 M 3 of prior TIA on aspirin only and anxiety and depression. Patient was at work today. He was standing on a racquet was about 4 feet off the ground. He wanted transfer to the fork lift and fell between the [place] catching his left rib cage and abdomen and then falling to the floor. No head injury. No LOC. No neck pain. He has a minor abrasion to his left arm but has normal range of motion. Physical Examination: Middle-aged male vital signs are stable afebrile. H EENT exam pupils are unreactive light. Is no signs of trauma to his face or scalp. Nontender no hematomas. C-spine nontender. Trachea midline. Lungs clear to auscultation bilaterally. Chest wall tenderness on his left ribs. No obvious deformity. No subcu air crepitance. Heart regular rate and rhythm no murmur. Abdomen soft nondistended. Normal bowel sounds no peritoneal signs. He is tender along the left upper and lateral abdominal wall. There is no ecchymosis or bruising or abrasions at this time. Exam is nontender. Pelvic girdle intact. Extremities moves all 4. Neurovascular intact. Normal range of motion and attending physician strength. He has an abrasion along the ulnar side of his left proximal forearm. There is no bony deformity. He has normal attending physician strength and radial pulse. Normal range of motion of his left hand, wrist,. Neurologically is awake alert with no focal motor or sensory deficits. GCS of 15. Test Results: CAT scan of the patient's chest with IV contrast shows a left seventh rib fracture with a small pneumothorax. No hemothorax. Read by the radiologist and reviewed by me. CAT scan of the patient's abdomen and pelvis with IV contrast shows the left rib fracture but otherwise no acute abnormality. No intra-abdominal pathology or injury. Normal. Hemoglobin 14. PT/INR normal. Chemistries pending. Emergency Department Course and Treatment: Patient may have broken ribs on the left. He also need be evaluated for left upper abdominal pain. CAT scans will be obtained of each. He was offered but deferred pain meds at this time. IV will be started. Treatment Plan: Patient preferred to stay at this hospital. I spoke to Dr. Wade Hinkle and he is willing to admit the patient. I also spoke to the anesthesiologist on-call Dr. Foster Wong and they will also evaluate the patient for pain control. Disposition: Impression: Fall about 4 feet Left seventh rib fracture with pneumothorax Left blunt abdominal trauma This note was generated with [employer] dictation software. It may contain incorrect words, spelling, and punctuation that were not noted in review of the chart prior to signing ED Disposition - Plan for ED Patient:
[2019-03-13] MEDS: 0.9% Normal Saline 1,000 ML 999 ML IV (10:46)
[2019-03-13] MEDS: Ondansetron 4 MG/2 ML Vial IV (11:06)
[2019-03-13] MEDS: morphine 8 MG/ML Syringe 6 MG IV (11:06)
[2019-03-13 12:55] LABS: Hematocrit 42.4 % (40-54); Hemoglobin 14.2 g/dL (13.0-16.5); Mean Corp Hgb Conc 33.5 g/dL (32-36); Mean Corpuscular Hgb 29.6 pg (27.0-32.0); Mean Corpuscular Volume 88.5 fL (80-94); Platelet Count 366 K/mm3 (150-450); RBC Distribution Width CV 12.3 % (11.6-14.6); RBC Distribution Width SD 39.9 fl (35.1-43.9); Red Blood Count 4.79 M/mm3 (4.6-6.2); White Blood Count 11.5 K/mm3 (4.4-11.0)
[2019-03-13 13:03] LABS: Prothrombin Time (Protime)PT. 13.2 SECONDS (11.7-14.9)
[2019-03-13 13:07] LABS: Anion Gap 4 (5-15); BUN 13 mg/dL (7-18); BUN/Creat Ratio 11.4 RATIO (10-20); Calcium,Total 8.3 mg/dL (8.5-10.1); Chloride 109 mmol/L (98-107); Creatinine, Serum 1.14 mg/dL (0.70-1.30); EST Glomerular Filtration Rate 70 mL/min (>60); Est Glom Filt Rate - Afr Amer 85 mL/min (>60); Estimated Creatinine Clearance 70.63 ml/min; Glucose 112 mg/dL (74-106); Potassium 4.1 mmol/L (3.5-5.1); Sodium Level 140 mmol/L (136-145)
--- NOTE | 2019-03-13 13:42 | HP.PCM_ITS ---
Problem List (1) Rib fracture Status: Acute (2) Pneumothorax, acute Status: Acute (3) Fall Status: Acute History of Present Illness Date of Admission: 03/13/19 Chief Complaint: Traumatic fall The patient is a 58 year old M who presented following a fall at work. 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 He notes this is approximately 4 feet off of the ground. Patient states he was moving down the line and the racquet ended. A co-worker brought over the fork lift. He stepped onto the fork lift and stepped back loosing his balance and falling off. He noted his left side and forearm was hit and he feel onto his back. he denies hitting his head or LOC. He denies smoking. He occasionally drinks. He denies past pulmonary issues. He notes benign cardiac murmur. He does not have to follow with a moisture meter reader. He notes in 2018 he had a TIA. He takes a daily aspirin. He notes a previous benign left axillary lymph node being removed by Dr. Angelo in 2007. He denies other previous upper body trauma or surgeries. Past Medical History Past Medical History (Chronic Problems): Chronic Problems (Last Reviewed 03/13/19 @ 13:57 by Gabrielle Fernandez PA-C) Seasonal allergies (Chronic) Fingernails, bluish (Chronic) Medical History: Medical History (Last Reviewed 03/13/19 @ 13:57 by Gabrielle Fernandez PA-C) TIA (transient ischemic attack) (Acute) G45.9 Seasonal allergies (Chronic) J30.2 High cholesterol (Acute) E78.00 Heart murmur (Acute) R01.1 Allergies No Known Allergies Allergy (Verified 03/13/19 10:09) Home Medications: Ambulatory Orders Medication Instructions Recorded loratadine 10 mg tablet 10 mg PO DAILY 10/07/17 aspirin 81 mg tablet,delayed 81 mg PO DAILY 10/19/18 release Escitalopram Oxalate [Lexapro] 10 mg PO DAILY 03/13/19 Fluticasone Propionate 2 spray INTRANASAL DAILY 03/13/19 Surgical History: Surgical History (Last Reviewed 03/13/19 @ 13:57 by Gabrielle Fernandez PA-C) History of hernia repair Z98.890, Z87.19 Surgical History: - - Hx benign left axillary lymph node removed [address] Angelo Psychiatric History: No pertinent psych hx Lives: Spouse/ Significant Other Smoking Status: Never smoker - *Family History Paternal Family History: Family History (Last Reviewed 03/13/19 @ 13:57 by Gabrielle Fernandez PA-C) Mother CVA (cerebral vascular accident) Thyroid disorder Father Heart disease Brother Thyroid disorder History Items: Heart Disease Maternal Family History: Family History (Last Reviewed 03/13/19 @ 13:57 by Gabrielle Fernandez PA-C) Mother CVA (cerebral vascular accident) Thyroid disorder Father Heart disease Brother Thyroid disorder Review of Systems Constitutional: Denies: Chills, Fever, Weight Change HEENT: Denies: Head Aches, Sinus Congestion, Sinus Drainage Cardiovascular: Reports: Chest Pain - Left lateral chest Respiratory: Denies: Cough, Shortness of breath at rest, Sputum production Gastrointestinal: Reports: Abdominal Pain - Left abdomen discomfort Genitourinary: Denies: Dysuria Musculoskeletal: Reports: Arm Pain - Left forearm Skin: Denies: Rash, Wounds Neurological: Denies: Numbness, Tingling, Focal weakness Psychiatric: Denies: Anxiety, Depression, Homicidal Ideations, Suicidal Ideations Hematologic/ Lymphatic: Denies: Easy Bruising, Easy Bleeding VTE Information - Inpt Only VTE Present on Admission: No Patient Problems: Active and Suspected Problems (Last Reviewed 03/13/19 @ 13:57 by Gabrielle torres PA-C) Rib fracture (Acute) Pneumothorax, acute (Acute) Fall (Acute) - Physical Exam Vitals/I&O's: Vital Signs Temp Pulse Resp BP Pulse Ox 98 F 71 19 H 134/82 H 96 03/13/19 10:10 03/13/19 13:02 03/13/19 13:02 03/13/19 13:02 03/13/19 13:02 Oxygen Flow Rate (L/min) 98 Oxygen Delivery Method Room Air Weight: 188 lb 0.869 oz Body Mass Index (BMI) 27.7 Finger Stick Blood Glucose 144 Intake and Output for Last 24 Hours 03/11/19 03/12/19 03/13/19 23:59 23:59 23:59 Intake Total 1000 / 1000 Balance 1000 / 1000 General: Alert, Oriented x3, Cooperative HEENT: Atraumatic, PERRLA, EOMI, Normocephalic Neck: Supple, No JVD, Negative Carotid Bruits Lungs: Clear to auscultation, Diminished - Left lower lung base Cardiovascular: Regular rate, Murmur Abdomen: Soft, Non-Distended, Tender - Left upper lateral discomfort Extremities: No edema, Capillary Refill Less than 3 Seconds Skin: Skin Tear - left forearm along with ecchymosis Musculoskeletal: No Tenderness to Palpation of Joints or Extremities Neurological: Neuro grossly intact Psych/Mental Status: Normal Affect, Appropriate Laboratory Results 03/13/19 12:45: WBC 11.5 H, RBC 4.79, Hgb 14.2, Hct 42.4, MCV 88.5, MCH 29.6, MCHC 33.5, RDW Std Deviation 39.9, RDW Coeff of Tracee 12.3, Plt Count 366, MPV 9.0 03/13/19 12:45: PT 13.2, INR 1.0 03/13/19 12:45: Sodium 140, Potassium 4.1, Chloride 109 H, Carbon Dioxide 27.0, Anion Gap 4 L, BUN 13, Creatinine 1.14, Estim Creat Clear Calc 70.63, Est GFR (MDRD) Af Amer 85, Est GFR (MDRD) Non-Af 70, BUN/Creatinine Ratio 11.4, Glucose 112 H, Calcium 8.3 L Assessment/Plan All Active Problems (Last Reviewed 03/13/19 @ 13:57 by Gabrielle Fernandez PA-C) Rib fracture (Acute) Pneumothorax, acute (Acute) Fall (Acute) TIA (transient ischemic attack) (Acute) High cholesterol (Acute) Heart murmur (Acute) TIA (transient ischemic attack) (Ruled-out) RLL pneumonia (Resolved) I am seeing this patient in conjunction with Dr. Curran. He will independently evaluate this patient. Impression: Traumatic fall. Left rib fracture. Small left lower pneumothorax. Plan: Discussed patient with Dr. Curran. CT scan of the chest demonstrates a small left lower lobe pneumothorax and left 8th rib fracture. CT scan of the abdomen/pelvis does not demonstrate any internal organ damage or acute abdominal process. Discussed with the patient having a nerve block placed by anesthesia to assist with the rib pain. No chest tube is indicated at this time. We will monitor the progress with serial CXR. It was discussed with the patient and his that if he becomes short of breath or if the pneumothorax is increasing in size, a chest tube will be placed at that time. We will place patient on a fiber supplement and stool softener to assist with bowel movements. Patient has had the opportunity to ask and have questions answered. Patient will be admitted. Patient agrees with the proposed plan. Thank you for allowing us to participate in this patient's care. Code Visit Office Visits / Consults: [id number] IP Consult L3
[2019-03-13] MEDS: Morphine 4 MG/ML Syringe 6 MG IV (13:55)
--- NOTE | 2019-03-13 14:54 | NURSING ---
Patient off unit to PACU at this time for intercostal block.
[2019-03-13] MEDS: 0.9% Normal Saline 1,000 ML 30 ML IV (14:59)
--- NOTE | 2019-03-13 16:20 | RAD_ITS ---
STUDY: X-RAY CHEST REASON FOR EXAM: Male, 58 years old. Left pneumothorax TECHNIQUE: PA and lateral views of the chest COMPARISON: CT chest earlier the same day FINDINGS: There is mild left base atelectasis. There is no consolidation. The right pleural space clear. There is a trace left effusion.There is a new small left apical pneumothorax. The heart is normal in size. The visualized osseous structures are within normal limits. RAD/Chest PA and Lateral IMPRESSION: New small left apical pneumothorax. Trace left effusion. No consolidation. Electronically Signed: Tone Jacques, at 17:09 EST Tel , Service support ,
--- NOTE | 2019-03-13 17:24 | PCM.PN.BLA ---
Progress Note Patient is doing well, the nerve block is effective, he is able to take deeper breaths, Chest x-ray does confirm left apical pneumothorax. I will prescribe therapeutic nasal prong oxygen. The patient has no new symptoms or complaints since arrival. No abdominal pain. We will recheck a chest x-ray early a.tyler Curran M.D., F.A.C.S. STROKE Vital Signs/Narrative: Vital Signs Temp Pulse Resp BP Pulse Ox 03/13/19 16:48 98.1 F 66 16 134/71 H 95 03/13/19 16:07 99.3 F H 69 16 128/76 H 97 03/13/19 15:45 70 16 115/55 L 97 03/13/19 15:30 65 16 133/58 H 98 03/13/19 15:15 75 16 135/78 H 98 03/13/19 15:04 98.5 F 65 18 134/82 H 98 03/13/19 15:00 71 16 133/75 H 97
--- NOTE | 2019-03-13 17:35 | NURSING ---
2 L per N/C placed at this time per orders. Patient sitting up in chair eating dinner.
[2019-03-13] MEDS: oxyCODONE 5 MG Tablet PO (18:46)
[2019-03-13] MEDS: Acetaminophen 325 MG Tablet 650 MG PO (20:45)
[2019-03-13] MEDS: Psyllium 1 PACKET PO (22:32)
[2019-03-14 02:32] VITALS: BP 114/72; PULSE 62; RESP 16; TEMP 36.6; O2SAT 97
[2019-03-14] MEDS: oxyCODONE 5 MG Tablet PO ×2 (02:35→18:03)
[2019-03-14] MEDS: Acetaminophen 325 MG Tablet 650 MG PO ×2 (02:45→18:03)
--- NOTE | 2019-03-14 05:00 | RAD_ITS ---
STUDY: X-RAY CHEST REASON FOR EXAM: Male, 58 years old. LT PNEUMOTHORAX TECHNIQUE: Single AP portable view of the chest. COMPARISON: Comparison is made with prior examination dated March 13, 2019. FINDINGS: Questionable tiny left apical pneumothorax. Persistent increased markings at the left lung base with blunting of the left costophrenic angle. Normal size heart. Normal mediastinum and matthias. Normal visualized pulmonary arteries. Normal visualized aortic arch and descending thoracic aorta. Normal visualized thoracic spine. Known left seventh rib fracture. There is no demonstrated abnormality of the visualized soft tissue structures of the upper abdomen. RAD/Chest 1 View IMPRESSION: Stable left basilar atelectasis. Questionable tiny left apical pneumothorax although this has improved as compared to prior study. Electronically Signed: Andrzej Steen, at 8:43 EST , Service support ,
--- NOTE | 2019-03-14 06:04 | PN.SURG_ITS ---
Patient Problems: Active and Suspected Problems (Last Reviewed 03/13/19 @ 13:57 by Gabrielle Fernandez PA-C) Rib fracture (Acute) Pneumothorax, acute (Acute) Fall (Acute) Subjective: Despite the nerve block the patient has had discomfort for which she is taken oral analgesic. Claims he was able to rest reasonably overnight. No shortness of breath. - Physical Exam Vitals/I&O's: Vital Signs Temp Pulse Resp BP Pulse Ox 97.9 F 62 16 114/72 97 03/14/19 02:32 03/14/19 02:32 03/14/19 02:32 03/14/19 02:32 03/14/19 02:32 Oxygen Flow Rate (L/min) 2 Oxygen Delivery Method Nasal Cannula Weight: 176 lb 12.972 oz Body Mass Index (BMI) 26.2 Finger Stick Blood Glucose 144 Intake and Output for Last 24 Hours 03/12/19 03/13/19 03/14/19 23:59 23:59 23:59 Intake Total 1000 / 1000 700 / 700 Output Total 1100 / 1100 Balance 1000 / 1000 -400 / -400 Lungs: Clear to auscultation, Normal air movement Laboratory Results 03/13/19 12:45: WBC 11.5 H, RBC 4.79, Hgb 14.2, Hct 42.4, MCV 88.5, MCH 29.6, MCHC 33.5, RDW Std Deviation 39.9, RDW Coeff of Tracee 12.3, Plt Count 366, MPV 9.0 03/13/19 12:45: PT 13.2, INR 1.0 03/13/19 12:45: Sodium 140, Potassium 4.1, Chloride 109 H, Carbon Dioxide 27.0, Anion Gap 4 L, BUN 13, Creatinine 1.14, Estim Creat Clear Calc 70.63, Est GFR (MDRD) Af Amer 85, Est GFR (MDRD) Non-Af 70, BUN/Creatinine Ratio 11.4, Glucose 112 H, Calcium 8.3 L Current Medications Acetaminophen (Tylenol) 650 mg PO Q6H PRN PRN PRN Reason: Pain Score 1-10/Temp > 100.7 F Last Admin: 03/14/19 02:45 Dose: 650 mg Documented by: Docusate Sodium (Colace) 100 mg PO BID PRN PRN PRN Reason: Constipation Sodium Chloride () 1,000 mls @ 30 mls/hr IV .[id number] [facility] Last Admin: 03/13/19 14:59 Dose: 30 mls/hr Documented by: Morphine Sulfate () 4 mg IV Q3H PRN PRN PRN Reason: Pain Score 6-10/10 Ondansetron HCl (Zofran) 4 mg IV Q6H PRN PRN PRN Reason: NAUSEA Oxycodone HCl (Oxyir) 5 mg PO Q6H PRN PRN PRN Reason: Pain Score 6-10/10 Last Admin: 03/14/19 02:35 Dose: 5 mg Documented by: Psyllium Hydrophilic Mucilloid (Metamucil) 1 packet PO BID [facility] Last Admin: 03/13/19 22:32 Dose: 1 packet Documented by: Sodium Chloride () 10 - 40 ml IV UD PRN PRN Reason: SALINE FLUSH Medical Necessity - Tobacco Use Smoking Status: Never smoker Tobacco Use: Non-smoker Assessment/Plan All Active Problems (Last Reviewed 03/13/19 @ 13:57 by Gabrielle Fernandez PA-C) Rib fracture (Acute) Pneumothorax, acute (Acute) Fall (Acute) TIA (transient ischemic attack) (Acute) High cholesterol (Acute) Heart murmur (Acute) TIA (transient ischemic attack) (Ruled-out) RLL pneumonia (Resolved) I have reviewed his chest x-ray and I believe that it is stable if not slightly improved over last night. Hopefully we will be able to initiate a alternating regimen of acetaminophen with an NSAID. Would also anticipate a small amount of narcotic for home-going later today.
[2019-03-14 07:43] VITALS: BP 134/84; PULSE 65; RESP 17; TEMP 36.7; O2SAT 96
[2019-03-14 07:44] VITALS: O2SAT 96
[2019-03-14 07:57] VITALS: O2SAT 95
--- NOTE | 2019-03-14 08:03 | PCM.DC.GS ---
Discharge Diet: Light diet - advance as tolerated Discharge Activity: May not drive while taking narcotic pain medications. May shower in (days): 1 Lifting Restrictions: 10 pounds Call your doctor if you observe: Shortness of breath Suture Line Care: Avoid Pulling/Pushing, Avoid Pinching/Bending Additional Instructions: Recommend alternating Tylenol and Ibuprofen. If severe pain or at night time, you may take Narcotic pain medication. You will need to follow-up with your PCP to determine if another CXR is warranted and the timing. Your family physician will assist with when to return to work and further lifting restrictions. If you have shortness of breath, please contact our office or go to the nearest emergency room. Allergies/Adverse Reactions: Allergies No Known Allergies Allergy (Verified 03/13/19 10:09) Medications to take at Discharge loratadine 10 mg tablet 10 mg PO DAILY PRN PRN 10/07/17 aspirin 81 mg tablet,delayed release 81 mg PO DAILY 10/19/18 Escitalopram Oxalate [Lexapro] 10 mg PO DAILY 03/13/19 Fluticasone Propionate 2 spray INTRANASAL DAILY 03/13/19 Oxycodone [Oxyir] 5 mg PO Q6H PRN PRN 4 Days #12 tablet 03/14/19 The following prescriptions were given: Oxycodone [Oxyir] 5 mg PO Q6H PRN PRN 4 Days #12 tablet PRN Reason: Pain Score 6-10/10 Transmission Status: Received by [facility]-[address] [facility] Primary Care Physician: Edvin Tobar DO [Primary Care Provider] - Please follow up with your Primary Care Physician in: Approximately 3-4 days Test Results: Test results from this visit will be discussed in further detail at your follow-up appointment, if applicable. Please Follow Up With: Wade Curran MD When: Follow-up as needed
[2019-03-14] MEDS: Aspirin E.C. 81 MG Tablet PO (09:40)
[2019-03-14] MEDS: Ibuprofen 600 MG Tablet PO (09:40)
[2019-03-14] MEDS: Escitalopram Oxalate 10 MG Tablet PO (09:40)
[2019-03-14] MEDS: Fluticasone 0.05% 1 SPRAY NASAL.SRY 2 SPRAY NASAL (11:27)
--- NOTE | 2019-03-14 12:29 | CASEMGMT ---
RN CM Assessment Introduced role of RN CM to patient, patient sitting up on edge of bed and agrees to RNCM assessment at this time.? Patient is alert, oriented and able?to participate in RN CM Assessment. ?Care providers, pharmacy, and demographics verified. Presentation: Per H&P- Fall at work- approx 4ft, hit Lt side and forearm and fell onto back Admit Dx: Lt Rib Fx, Pneumothorax Re-Admit: No Barriers/Issues: None. Patient states only concern at home is pain control. 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 States has other family support that could assist if needed. PCP: Edvin Tobar Specialists: None Preferred Pharmacy: [facility] Insurance: [employer] Rx Benefit: Yes? ?LNOK: Suzanne Valle LW/HPOA: [facility] has both and made aware not on file at [facility] and if brought in will scan a copy on file. HPOA- Suzanne Valle Living Arrangements:? Lives with in a 2SH, bedroom on 2nd fl. States able to accommodate on 1st fl for recovery if needed.2 steps to enter home through the garage, 1 step to enter through the front ADL?s: Independent with ambulation and ADLs Transportation: Both patient and drive, denies any issues. DME: None HHC: None SNF: None Goal: Home and does not think will have any needs. Denies any issues, concerns, needs or questions with DC planning at this time. Aware CM remains available for any emerging needs. DC PLAN: Home with no anticipated needs identified at this time. JANETT Montoya
--- NOTE | 2019-03-14 12:31 | NURSING ---
Student documentation reviewed.
[2019-03-14 13:43] VITALS: BP 142/88; PULSE 81; RESP 18; TEMP 36.7; O2SAT 97
--- NOTE | 2019-03-14 15:30 | CHAPLAIN ---
Type of Pastoral Visit _x__ Initial Visit ___ Follow-up Visit ___ On-call Visit ___ General Patient Visit ___ Spiritual Assessment ___ Family Conference ___ Bereavement ___ Rapid Response ___ Code Blue ___ Other (describe below) Pastoral Care Referral From _x__ Patient ___ Family ___ Nurse ___ Physician ___ Regional Liaison ___ Fixed Assets Accountant ___ Other (describe below) Sacrament/Intervention _x__ Active listening ___ Anointing ___ Tenriism ___ Bereavement ___ Communion _x__ Dayana exploration ___ _x__ Life review ___ Prayer ___ Reconciliation ___ Sacrament of Sick ___ Supportive presence ___ Wedding ___ Other (describe below) Pastoral Comments
[2019-03-14 18:18] VITALS: BP 132/80; PULSE 78; RESP 18; TEMP 37.1; O2SAT 96
== END 2019-03-14 18:24 | disposition home or self-care (01) | DRG 200 ==
LOC: ED 12:13 → MS3 14:18
PROVIDERS: Anesthesiology; Admitting Provider Surgery; Emergency Provider Emergency Medicine; PCP Family Medicine; Visit Provider Surgery
PROC: 3E0T3BZ Introduction of Anesthetic Agent into Peripheral Nerves and Plexi, Percutaneous Approach (ICD-10-PCS; principal; 2019-03-13 15:00)
DX: S27.0XXA Traumatic pneumothorax, initial encounter (principal); S22.32XA Fracture of one rib, left side, initial encounter for closed fracture; S39.91XA Unspecified injury of abdomen, initial encounter; W17.89XA Other fall from one level to another, initial encounter; Z79.82 Long term (current) use of aspirin; Z82.3 Family history of stroke; Z86.73 Personal history of transient ischemic attack (TIA), and cerebral infarction without residual deficits; Y99.0 Civilian activity done for income or pay; J30.2 Other seasonal allergic rhinitis; E78.00 Pure hypercholesterolemia, unspecified; F41.9 Anxiety disorder, unspecified; F32.9 Major depressive disorder, single episode, unspecified
CPT/HCPCS: 71045; 71046; 71260; 74177; 80048; 85027; 85610; 99251; 99285; J7030; Q9967; A4216; G0463; J2405

== ENCOUNTER → 2019-03-20 13:28 | Outpatient (CLI) | payer BC, SELFPAY ==
[2019-03-13 20:18] VITALS: BMI 26.2
--- NOTE | 2019-03-20 13:31 | RAD_ITS ---
STUDY: X-RAY CHEST REASON FOR EXAM: Male, 58 years old. PNEUMOTHORAX 7 DAYS AGO S/P FALL TECHNIQUE: PA and lateral views of the chest. COMPARISON: Comparison is made with prior examination dated March 14, 2019. FINDINGS: There is no evidence of pneumothorax at this time. Residual atelectasis persist at the left lung base with blunting of the left costophrenic angle. Normal size heart. Normal mediastinum and matthias. Normal visualized pulmonary arteries. Normal visualized aortic arch and descending thoracic aorta. Normal visualized thoracic spine. Stable nondisplaced fractures of the left lower ribs. There is no demonstrated abnormality of the visualized soft tissue structures of the upper abdomen. RAD/Chest PA and Lateral IMPRESSION: There is no evidence of pneumothorax. Residual blunting of the left costophrenic angle with left basilar atelectasis and nondisplaced left rib fractures. Electronically Signed: Andrzej Steen, at 14:27 EST , Service support ,
== END ==
PROVIDERS: PCP Family Medicine; Referring Provider Surgery; Visit Provider Surgery
DX: J93.83 Other pneumothorax (principal)
CPT/HCPCS: 71046

== ENCOUNTER 2019-12-15 10:22 | Emergency (ER) | payer BC, SELFPAY ==
[2019-11-15 09:52] VITALS: BMI 26.2
[2019-12-15 10:23] VITALS: BP 140/83; PULSE 70; RESP 19; TEMP 36.6; O2SAT 99; BMI 26.1
--- NOTE | 2019-12-15 11:16 | CT_ITS ---
STUDY: CT BRAIN WITHOUT CONTRAST REASON FOR EXAM: Male, 59 years old. HIGH BP, BLURRED VISION, NELSON RADIATION DOSAGE (If Supplied By Facility): CTDIvol = ( 60.81 ) mGy, DLP = ( 1067.08 ) mGycm TECHNIQUE: Transaxial CT imaging of the brain was performed without administration of intravenous contrast material. Individualized dose optimization techniques were used for this CT. COMPARISON: No relevant priors. FINDINGS: Normal soft tissue structures. Normal calvarium. Normal size ventricles and extra-axial spaces for the patient''s age. Normal white matter tracts of the cerebral hemispheres. Normal basal ganglia and thalami. Normal brainstem. Normal cerebellum. There is no intracranial hemorrhage. There are no findings of an acute ischemic infarction. There is mucoperiosteal inflammatory disease of the paranasal sinuses consistent with mild chronic sinusitis. CT/Brain/Head without Contrast IMPRESSION: Normal unenhanced CT scan of the brain. Electronically Signed: Joao Garcia MD at 12:01 EST Tel , Service support ,
--- NOTE | 2019-12-15 11:16 | EKG12_ITS ---
Test Reason : HTN Blood Pressure : / mmHG Vent. Rate : 060 BPM Atrial Rate : 060 BPM P-R Int : 146 ms QRS Dur : 108 ms QT Int : 402 ms P-R-T Axes : 054 -31 007 degrees QTc Int : 402 ms Normal sinus rhythm Left axis deviation Abnormal ECG Confirmed by GARY IZAGUIRRE, JUNG ([id number]), editor book MARILUZ WARD ([id number]) on 12/18/2019 2:33:14 PM Referred By: MR Confirmed By:JUNG VEGA MD
[2019-12-15 12:02] LABS: Prothrombin Time (Protime)PT. 12.9 SECONDS (11.7-14.9)
[2019-12-15 12:03] LABS: Partial Thromboplast Time 22.8 Seconds (24.1-36.2)
[2019-12-15 12:07] LABS: BUN 18 mg/dL (7-18); Creatinine, Serum 1.29 mg/dL (0.70-1.30); Estimated Creatinine Clearance 61.66 ml/min; Glucose 100 mg/dL (74-106)
[2019-12-15 12:08] LABS: Anion Gap 2 (5-15); Chloride 109 mmol/L (98-107); EST Glomerular Filtration Rate 61 mL/min (>60); Est Glom Filt Rate - Afr Amer 73 mL/min (>60); Potassium 4.7 mmol/L (3.5-5.1); Sodium Level 138 mmol/L (136-145)
[2019-12-15 12:51] LABS: Absolute Neutrophil Count 4.9 X10^3/uL (2.0-7.7); Basophil# 0.02 X10^3/uL; Basophil% 0.3 % (0-1); Eosinophil# 0.05 X10^3/uL; Eosinophils% 0.8 % (0-5); Hematocrit 43.4 % (40-54); Hemoglobin 14.5 g/dL (13.0-16.5); Lymphocyte % 15.4 % (19-41); Mean Corp Hgb Conc 33.4 g/dL (32-36); Mean Corpuscular Hgb 29.7 pg (27.0-32.0); Mean Corpuscular Volume 88.8 fL (80-94); Mean Platelet Vol. 9.3 fl (6.2-12.0); Monocyte# 0.49 X10^3/uL; Monocyte% 7.6 % (0-10); NRBC Flagged by Analyzer 0 % (0-5); Neutrophil # 4.89 X10^3/uL (2.7-7.7); Neutrophil % 75.4 % (47-70); Platelet Count 378 K/mm3 (150-450); RBC Distribution Width CV 12.1 % (11.6-14.6); RBC Distribution Width SD 39.6 fl (35.1-43.9); Red Blood Count 4.89 M/mm3 (4.6-6.2); White Blood Count 6.5 K/mm3 (4.4-11.0)
--- NOTE | 2019-12-15 13:05 | ED.VIS.GEN ---
History of Present Illness Chief Complaint: Hypertension Narrative: Patient presenting for evaluation secondary to changes in vision and speech difficulty. Patient reports that prior to arrival he had a sudden onset of changes in vision, speech difficulty, difficulty with typing on his keyboard. Patient states that it was associated with an onset of a mild headache afterwards that he took Excedrin for. He states that the symptoms of speech difficulty and vision changes have since resolved, the vision changes were predominantly in the left eye left visual field, now he has a headache on the left side of his head. Patient does have a history of prior similar episodes in the past, 2 years ago he had an episode with a full stroke work-up that was negative and was thought to have complex migraines. He does not frequently get headaches. He denies any recent head injuries. He denies any infectious signs or symptoms. Patient is not a smoker, he denies any history of hypertension hyperlipidemia diabetes cardiovascular disease or premature family history of atherosclerotic disease. Review of systems otherwise negative. Past Medical History - Allergies and Home Meds Allergies/Adverse Reactions: Allergies grass pollen Allergy (Mild, Verified 12/15/19 10:22) congestion Primary Care Physician: Edvin Tobar DO [Primary Care Provider] - Prior records reviewed: Yes Past Medical History: - - Complex migraines Surgical History: - - Hx benign left axillary lymph node removed [address] Angelo Smoking Status: Never smoker Alcohol: None Drugs: None - Family History Paternal Family History: Family History (Last Reviewed 11/15/19 @ 09:18 by Kathrine Aparicio) Mother CVA (cerebral vascular accident) Thyroid disorder Father Heart disease Brother Thyroid disorder Family History: Reports: Heart Disease Review of Systems All systems negative except as indicated General: Denies: Chills, Fever, Sweats Eyes: Denies: Visual changes - bilaterally, Diplopia ENT: Denies: Rhinorrhea, Sore throat Cardiovascular: Denies: Chest pain, Palpitations Respiratory: Denies: Dyspnea, Cough, Dyspnea on exertion Gastrointestinal: Denies: Abdominal pain, Nausea, Vomiting, Diarrhea, Melena, Hematochezia Genitourinary: Denies: Dysuria, Hematuria, Frequency Musculoskeletal: Denies: Back pain, Extremity Pain Skin: Denies: Rash, Wounds Neurological: Reports: Headache, - - Vision changes and speech difficulty Physical Exam Vital Signs/Narrative: Vital Signs Temp Pulse Resp BP Pulse Ox 12/15/19 10:23 97.8 F 70 19 H 140/83 H 99 Inital Vital Signs reviewed: Yes General: Well nourished, Well developed, No Acute Distress Head: Normocephalic, Atraumatic Eyes: Perrl, EOMI ENT: Moist mucous membranes, No rhinorrhea Neck: Supple, Nontender Cardiovascular: Regular rate, Regular rhythm, No murmurs Respiratory: No distress, CTA bilaterally, Chest nontender Abdomen: Soft, Nontender, Nondistended, Normal bowel sounds Back: Nontender, Normal Inspection Extremities: Nontender, No edema Skin: Normal color, No rash Neurological: Alert, Oriented x3, Cranial nerves II-XII grossly intact, Normal Strength, Normal Sensation, - - NIH stroke scale is 0 Psychological: Normal affect, Normal Mood Diagnostic/Tx/Re-eval Clinical Impression(s) from Imaging Studies Brain CT 12/15/19 11:16 IMPRESSION: Normal unenhanced CT scan of the brain. Electronically Signed: Joao Garcia MD at 12:01 EST Tel , Service support , Laboratory Data 12/15/19 12/15/19 12/15/19 11:10 11:10 11:10 WBC Cancelled Corrected WBC Cancelled RBC Cancelled Hgb Cancelled Hct Cancelled MCV Cancelled MCH Cancelled MCHC Cancelled RDW Std Deviation Cancelled RDW Coeff of Tracee Cancelled Plt Count Cancelled MPV Cancelled Immature Gran % (Auto) Cancelled Neut % (Auto) Cancelled Lymph % (Auto) Cancelled [place] % (Auto) Cancelled Eos % (Auto) Cancelled Baso % (Auto) Cancelled Absolute Neuts (auto) Cancelled Absolute Lymphs (auto) Cancelled Total Counted Cancelled Neutrophils % (Manual) Cancelled Band Neutrophils % Cancelled Lymphocytes % (Manual) Cancelled Monocytes % (Manual) Cancelled Eosinophils % (Manual) Cancelled Basophils % (Manual) Cancelled Metamyelocytes % Cancelled Myelocytes % Cancelled Promyelocytes % Cancelled Blast Cells % Cancelled Plasma Cell % (Manual) Cancelled Other Cells % Cancelled Nucleated RBC % Cancelled Nucleated RBCs/100 WBC Cancelled Differential Comment Cancelled Diff Path Review Cancelled Hypersegmented Neuts Cancelled Atypical Lymphocytes Cancelled Reactive Lymphocytes Cancelled Smudge Cells Cancelled Toxic Granulation Cancelled Toxic Vacuolation Cancelled Dohle Bodies Cancelled Janae Rods Cancelled Platelet Estimate Cancelled Plt Morphology Comment Cancelled RBC Morphology Cancelled Polychromasia Cancelled Hypochromasia Cancelled Poikilocytosis Cancelled Basophilic Stippling Cancelled Anisocytosis Cancelled Microcytosis Cancelled Macrocytosis Cancelled Spherocytes Cancelled Sickle Cells Cancelled Target Cells Cancelled Tear Drop Cells Cancelled Ovalocytes Cancelled Stomatocytes Cancelled Ag-Warfield Bodies Cancelled Kayli Cells Cancelled Bite Cells Cancelled Crenated Cell Cancelled Acanthocytes (Spur) Cancelled Rouleaux Cancelled Schistocytes Cancelled PT 12.9 INR 1.0 APTT 22.8 L Sodium 138 Potassium 4.7 Chloride 109 H Carbon Dioxide 27.0 Anion Gap 2 L BUN 18 Creatinine 1.29 Estim Creat Clear Calc 61.66 Est GFR (MDRD) Af Amer 73 Est GFR (MDRD) Non-Af 61 BUN/Creatinine Ratio 14.0 Glucose 100 Calcium 9.0 Troponin I < 0.015 12/15/19 12:42 WBC 6.5 Corrected WBC RBC 4.89 Hgb 14.5 Hct 43.4 MCV 88.8 MCH 29.7 MCHC 33.4 RDW Std Deviation 39.6 RDW Coeff of Tracee 12.1 Plt Count 378 MPV 9.3 Immature Gran % (Auto) 0.500 Neut % (Auto) 75.4 H Lymph % (Auto) 15.4 L [place] % (Auto) 7.6 Eos % (Auto) 0.8 Baso % (Auto) 0.3 Absolute Neuts (auto) 4.9 Absolute Lymphs (auto) 1.00 Total Counted Neutrophils % (Manual) Band Neutrophils % Lymphocytes % (Manual) Monocytes % (Manual) Eosinophils % (Manual) Basophils % (Manual) Metamyelocytes % Myelocytes % Promyelocytes % Blast Cells % Plasma Cell % (Manual) Other Cells % Nucleated RBC % 0 Nucleated RBCs/100 WBC Differential Comment Diff Path Review Hypersegmented Neuts Atypical Lymphocytes Reactive Lymphocytes Smudge Cells Toxic Granulation Toxic Vacuolation Dohle Bodies Janae Rods Platelet Estimate Plt Morphology Comment RBC Morphology Polychromasia Hypochromasia Poikilocytosis Basophilic Stippling Anisocytosis Microcytosis Macrocytosis Spherocytes Sickle Cells Target Cells Tear Drop Cells Ovalocytes Stomatocytes Ag-Warfield Bodies Emery Cells Bite Cells Crenated Cell Acanthocytes (Spur) Rouleaux Schistocytes PT INR APTT Sodium Potassium Chloride Carbon Dioxide Anion Gap BUN Creatinine Estim Creat Clear Calc Est GFR (MDRD) Af Amer Est GFR (MDRD) Non-Af BUN/Creatinine Ratio Glucose Calcium Troponin I - EKG Initial EKG Interpretation: - - Sinus rhythm of [address] segments normal T waves, no evidence of acute ischemia or arrhythmia. - Medical Decision Making Patient presented secondary to abnormal neurologic symptoms and headache. Work-up was obtained. CT imaging of the brain was negative, EKG unremarkable lab work unremarkable. Patient maintained a NIH stroke scale of 0 in the emergency department. Patient has no real risk factors for stroke. He had a work-up within the last 2 years that was negative. I believe he safely can be discharged. Patient will follow-up with primary care. ED Disposition - Plan for ED Patient: Disposition: Home or Assisted Living Diagnosis: Migraine Instructions: ED, Migraine (Classical) Referrals: Edvin Tobar DO [Primary Care Provider] - 3-5 Days
[2019-12-15 13:47] VITALS: BP 140/84; PULSE 61; RESP 16; O2SAT 98
== END 2019-12-15 13:47 | disposition home or self-care (01) ==
PROVIDERS: Emergency Provider Emergency Medicine; PCP Family Medicine
DX: G43.909 Migraine, unspecified, not intractable, without status migrainosus (principal); Z82.3 Family history of stroke; Z82.49 Family history of ischemic heart disease and other diseases of the circulatory system
CPT/HCPCS: 70450; 80048; 84484; 85025; 85610; 85730; 93005; 99284; A4216

== ENCOUNTER 2020-04-12 07:17 | Day surgery (SDC) | payer BC, SELFPAY ==
[2020-04-01 08:52] VITALS: BMI 26.6
[2020-04-12] VITALS (8 sets, daily range): BP systolic 102–134; BP diastolic 64–84; PULSE 57–75; RESP 16–18; TEMP 36.2–36.6; O2SAT 95–100; BMI 25.4
--- NOTE | 2020-04-12 06:50 | HP_ITS ---
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 Is patient in pain?: No Allergies grass pollen Allergy (Mild, Verified 04/01/20 08:53) congestion Medications loratadine 10 mg tablet 10 mg PO DAILY PRN PRN 10/07/17 [History Confirmed 04/01/20] aspirin 81 mg tablet,delayed release 81 mg PO DAILY 10/19/18 [History Confirmed 04/01/20] acetaminophen 325 mg tablet 325 mg PO Q6H PRN tab 03/30/19 [History Confirmed 04/01/20] ibuprofen 200 mg capsule 200 mg PO Q6H PRN 03/30/19 [History Confirmed 04/01/20] fluticasone propionate 50 mcg/actuation nasal spray,suspension 2 spray INTRANASAL DAILY #54.6 ml 09/21/19 [Rx Confirmed 04/01/20] escitalopram oxalate 20 mg tablet 20 mg PO DAILY tab 04/01/20 [History] [facility] Medical History 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 Savage Mckeon MD) Smoking Status: Never smoker alcohol intake: current alcohol intake frequency: a few times a month Alcohol type: beer, wine substance use type: does not use what type of physical activity do you participate in: none HPI HPI HPI: LORAINE MENENDEZ, is a 59 M who presents to the office today for HPI HPI Surgical H&P: Yes HPI: LORAINE MENENDEZ, is a 59 M who presents to the office today for Diarrhea and black stools. Patient reports he has been having diarrhea for several weeks. He also reports that he has off-and-on black stools. He is having no abdominal pain. He says that he has urgent diarrhea in the middle of the night frequently. ROS General General: No weight change, appetite, fatigue, colon cancer, breast cancer or weakness HEENT HEENT: No difficulty swallowing, eye injury, eye surgery, swollen glands or hoarseness Endo Endocrine: No thyroid disease, diabetes mellitus, thyroid cancer, Hair loss, heat intolerance or cold intolerance Skin Skin: No rash or changing moles Musc Musculoskeletal: No back problems, arthritis, rheumatoid arthritis, gout or joint pain Cardio Cardiovascular: Yes murmur; no pacemaker, heart disease, atrial fibrillation, high blood pressure, heart attack, heart stent, palpitations, shortness of breat with exertion or chest pain Psych Psychiatric: Yes anxiety; no depression or hearing voices Resp Respiratory: No shortness of breath, No sleep apnea, No cough, No COPD, No asthma, No emphysema, No wheezing Gastro Gastrointestinal: No abdominal pain, No nausea or vomiting, Yes diarrhea, No constipation, No blood in stool, No acid reflux, No hemorrhoids, No ulcers, No gallbladder problem, Yes black,tarry stools Randy Hematologic: Yes blood thinners, No blood disorders, No bleeding, No anemia, No blood clots Neuro Neurologic: No system reviewed and no additional complaints, except as docu, No as per HPI, No abnormal walking, No abnormal hearing, No abnormal movements, No abnormal speech, No behavioral changes, No burning sensations, No confusion, No seizure-like activity, No unsteadiness, No dizziness, No localized weakness, No frequent falls, No headache(s), No lack of coordination, No loss of vision, No memory loss, No numbness, No other visual disturbances, No radiating pain, No restless legs, No sensory deficit, No fainting, No tingling, No tremor(s), No weakness, No other Exam Const General: cooperative Orientation: alert, oriented x3 Resp Effort & Inspection: normal respiratory effort Auscultation: clear to auscultation bilaterally Cardio Rate: regular rate Rhythm: regular rhythm Heart Sounds: murmur GI Inspection: non-distended Palpation: soft, nontender Assessment & Plan Problems 1. Diarrhea, unspecified type R19.7 2. Black stools K92.1 Plan The patient is having diarrhea and black stools. The patient's last colonoscopy was 10 years ago and was normal. The patient has no history of bleeding in the past. He reports no family history of colon cancer. I will plan to perform EGD and colonoscopy. I explained endoscopy in detail to the patient. I explained the risks including but not limited to stroke or heart attack with anesthesia, perforation of the GI tract, bleeding, infection. I explained that any of these could necessitate further emergency surgery. The patient understands and all questions were answered sufficiently. The patient wishes to proceed with procedure. Savage Mckeon MD Pager: [facility] [address] [place] [address], [address] [place] [address] Office: Orders Orders: Colonoscopy Today K92.1, R19.7 EGD Today K92.1 Coding Level of Care Code Off vis,new,level 3 Diagnoses Diarrhea, unspecified type R19.7 ??Diarrhea type: unspecified type Black stools K92.1 I have re-examined the patient. There are no clinical changes since date of exam.
[2020-04-12] MEDS: Lactated Ringers 1,000 ML 100 ML IV (07:50)
--- NOTE | 2020-04-12 08:30 | IMM_PTH ---
PATIENT: LORAINE MENENDEZ LOC: EN U#:[id number] AGE/SX: 59/M ROOM: RE04/12/[address]: Dr. Savage Mckeon MD : 1960 BED: DIS: 04/12/2020 SPEC #: [id number] RECD: 04/12/20 10:58 STATUS: MACI REQ #: [id number] MELISSA: 04/12/20 08:[address]: Savage Mckeon DEPT: IMMUNOHISTOCHEMISTRY RECD BY: Diane Pierson ENTERED: 04/12/20 10:58 SP TYPE: IMMUNO OTHR DR: Dr. Edvin Tobar, DO Tissues: Stomach, NOS Procedures: H Pylori (initial) PHYSICIAN & INSTITUTION [place] [address] SPECIMEN INFORMATION: Tissue Source: Antrum biopsy Clinical Info: Diarrhea, black stools Specimen Number: [id number] CPT code: 29938 METHODOLOGY: Deparaffinized sections of prefer/formalin-fixed tissue or PAP/DQ stained slides are incubated with monoclonal/polyclonal antibodies/oligonucleotide probes. Localization is made via biotin free immunoperoxidase method. Appropriate controls are performed and reacted as expected. Results on target cell population are indicated in the following table: RESULTS: ANTIBODY / CLONE RESULT H Pylori (polyclonal) negative These tests were developed and their performance characteristics determined by [facility]. They may not have been cleared or approved by the U.S. Food and Drug Administration. The FDA has determined that such clearance or approval is not necessary. INTERPRETATION: Antrum biopsy: Negative for Helicobacter pylori organisms. AM:joi 04/15/2020
--- NOTE | 2020-04-12 08:30 | EGD_PTH ---
PATIENT: LORAINE MENENDEZ LOC: EN U#:[id number] AGE/SX: 59/M ROOM: RE04/12/[address]: Dr. Savage Mckeon MD : 1960 BED: DIS: 04/12/2020 SPEC #: [id number] RECD: 04/12/20 10:31 STATUS: MACI BERLIN #: [id number] MELISSA: 04/12/20 08:[address]: Savage Mckeon DEPT: SURGICAL PATHOLOGY RECD BY: Zuleika Hopson ENTERED: 04/12/20 10:59 SP TYPE: EGD BIOPSY OTHR DR: Dr. Edvin Tobar, DO Tissues: Gastric mucous membrane Procedures: Surgery Specimen Level IV HEADER OPERATION: Colonoscopy, EGD ([facility] [place]) PRE-OP DIAGNOSIS: Diarrhea, black stools TISSUE SUBMITTED: Antrum for H. pylori and path biopsy MICROSCOPIC DIAGNOSIS Gastric antrum, biopsy: Chronic gastritis. See comment. AM:joi 04/15/2020 COMMENT The results of immunohistochemistry for Helicobacter pylori will be reported separately ([id number]). MICROSCOPIC DESCRIPTION Slides are reviewed. GROSS DESCRIPTION Received in fixative is one container labeled with the patient's name and designated antral biopsy. The specimen consists of one irregular fragment of light garcía soft tissue that measures 0.5 x 0.2 x 0.1 cm. The specimen is totally submitted in one cassette. / SJ:joi 04/12/20 TC:3 CPT: 35040
--- NOTE | 2020-04-12 09:17 | OP.CCLET_ITS ---
04/12/2020 Edvin Tobar Re : Upper GI endoscopy procedure for Mookie Valle Dear Dr. Tobar This procedure was performed on Sunday, April 12, 2020. My impressions and recommendations are as follows: Impressions : - Gastritis. Biopsied. - Normal examined duodenum. - Normal esophagus. Recommendations : - Await pathology results. - Discharge patient to home. - Resume previous diet. - Continue present medications. - Use Prilosec (omeprazole) 40 mg PO daily for 2 months. - Use sucralfate tablets 1 gram PO QID for 2 weeks. My findings are described in the full procedure note, which is enclosed. If I can be of further assistance, please feel free to contact me at Doctor phone number(s): , Work: . Sincerely, Savage Mckeon MD 04/12/2020 9:17:22 AM This report has been signed electronically.
--- NOTE | 2020-04-12 09:17 | OP.EGD_ITS ---
Patient Name: Mookie Valle Procedure Date: 04/12/2020 8:45 AM Date of : 1960 Age: 59 Procedure: Upper GI endoscopy Indications: Melena Providers: Savage Mckeon MD Referring MD: Edvin Tobar Medicines: Monitored Anesthesia Care Patient Profile: This is a 59 year old male. Refer to note in patient chart for documentation of history and physical. Complications: No immediate complications. Estimated blood loss: Minimal. Procedure: Pre-Anesthesia Assessment: - Prior to the procedure, a History and Physical was performed, and patient medications and allergies were reviewed. The patient's tolerance of previous anesthesia was also reviewed. The risks and benefits of the procedure and the sedation options and risks were discussed with the patient. All questions were answered, and informed consent was obtained. Prior Anticoagulants: The patient has taken no previous anticoagulant or antiplatelet agents. After reviewing the risks and benefits, the patient was deemed in satisfactory condition to undergo the procedure. After obtaining informed consent, the endoscope was passed under direct vision. Throughout the procedure, the patient's blood pressure, pulse, and oxygen saturations were monitored continuously. The gastroscope was introduced through the mouth, and advanced to the second part of duodenum. The upper GI endoscopy was accomplished without difficulty. The patient tolerated the procedure well. Scope In: 8:55:03 AM Scope Out: 8:57:51 AM Total Procedure Duration Time 0 hours 2 minutes 48 seconds Findings: Localized moderate inflammation was found in the stomach. Biopsies were taken with a cold forceps for Helicobacter pylori testing. The examined duodenum was normal. The esophagus was normal. Impression: - Gastritis. Biopsied. - Normal examined duodenum. - Normal esophagus. Recommendation: - Await pathology results. - Discharge patient to home. - Resume previous diet. - Continue present medications. - Use Prilosec (omeprazole) 40 mg PO daily for 2 months. - Use sucralfate tablets 1 gram PO QID for 2 weeks. Procedure Code(s): --- Professional --- 12467, Esophagogastroduodenoscopy, flexible, transoral; with biopsy, single or multiple Diagnosis Code(s): --- Professional --- K29.70, Gastritis, unspecified, without bleeding K92.1, Melena (includes Hematochezia) CPT copyright 2017 [employer]. All rights reserved. The codes documented in this report are preliminary and upon rn referral review may be revised to meet current compliance requirements. Savage Mckeon MD 04/12/2020 9:17:22 AM This report has been signed electronically. Number of Addenda: 0 Note Initiated On: 04/12/2020 8:45 AM
--- NOTE | 2020-04-12 09:19 | OP.COLON_ITS ---
Patient Name: Mookie Valle Procedure Date: 04/12/2020 8:58 AM Date of : 1960 Age: 59 Procedure: Colonoscopy Indications: Clinically significant diarrhea of unexplained origin, Melena Providers: Savage Mckeon MD Referring MD: Edvin Tobar Medicines: Monitored Anesthesia Care Patient Profile: This is a 59 year old male. Refer to note in patient chart for documentation of history and physical. Last Colonoscopy: none. The patient's first colonoscopy is today. Complications: No immediate complications. Procedure: Pre-Anesthesia Assessment: - Prior to the procedure, a History and Physical was performed, and patient medications and allergies were reviewed. The patient's tolerance of previous anesthesia was also reviewed. The risks and benefits of the procedure and the sedation options and risks were discussed with the patient. All questions were answered, and informed consent was obtained. Prior Anticoagulants: The patient has taken no previous anticoagulant or antiplatelet agents. After reviewing the risks and benefits, the patient was deemed in satisfactory condition to undergo the procedure. After I obtained informed consent, the scope was passed under direct vision. Throughout the procedure, the patient's blood pressure, pulse, and oxygen saturations were monitored continuously. The Colonoscope was introduced through the anus and advanced to the cecum, identified by appendiceal orifice and ileocecal valve. The colonoscopy was performed without difficulty. The patient tolerated the procedure well. The quality of the bowel preparation was good. Scope In: 8:59:39 AM Scope Withdrawal Time 0 hours 6 minutes 12 seconds Scope Out: 9:10:42 AM Total Procedure Duration Time 0 hours 11 minutes 3 seconds Findings: The entire examined colon appeared normal on direct and retroflexion views. Impression: - The entire examined colon is normal on direct and retroflexion views. - No specimens collected. Recommendation: - Discharge patient to home. - Resume previous diet. - Continue present medications. - Repeat colonoscopy in 10 years for screening purposes. Procedure Code(s): --- Professional --- 36756, Colonoscopy, flexible; diagnostic, including collection of specimen(s) by brushing or washing, when performed (separate procedure) Diagnosis Code(s): --- Professional --- R19.7, Diarrhea, unspecified K92.1, Melena (includes Hematochezia) CPT copyright 2017 [employer]. All rights reserved. The codes documented in this report are preliminary and upon foaming machine operator review may be revised to meet current compliance requirements. Savage Mckeon MD 04/12/2020 9:18:39 AM This report has been signed electronically. Number of Addenda: 0 Note Initiated On: 04/12/2020 8:58 AM
--- NOTE | 2020-04-12 09:19 | OP.CCLET_ITS ---
04/12/2020 Edvin Tobar Re : [facility] This procedure was performed on Sunday, April 12, 2020. My impressions and recommendations are as follows: Impressions : - The entire examined colon is normal on direct and retroflexion views. - No specimens collected. Recommendations : - Discharge patient to home. - Resume previous diet. - Continue present medications. - Repeat colonoscopy in 10 years for screening purposes. My findings are described in the full procedure note, which is enclosed. If I can be of further assistance, please feel free to contact me at Doctor phone number(s): , Work: . Sincerely, Savage Mckeon MD 04/12/2020 9:18:39 AM This report has been signed electronically.
== END 2020-04-12 10:20 | disposition home or self-care (01) ==
LOC: EN 07:18 → AC 07:29
PROVIDERS: PCP Family Medicine; Referring Provider Family Medicine; Visit Provider Surgery
PROC: 0DJD8ZZ Inspection of Lower Intestinal Tract, Via Natural or Artificial Opening Endoscopic (ICD-10-PCS; CPT 45378; principal; 2020-04-12 08:25)
DX: K29.50 Unspecified chronic gastritis without bleeding (principal); F41.9 Anxiety disorder, unspecified; Z20.822 Contact with and (suspected) exposure to COVID-19; Z79.899 Other long term (current) drug therapy
CPT/HCPCS: 43239; 45378; 87426; 88305; 88342; C9803; J7120; J2405

== ENCOUNTER 2020-05-02 05:53 | Outpatient (RCR) | payer BC, SELFPAY ==
[2020-04-12 07:54] VITALS: BMI 25.4
[2020-04-25] MEDS: COVID-19 VACC, MRNA(PFIZER)/PF 30 MCG/0.3 ML SYRINGE IM (12:39)
[2020-05-16] MEDS: COVID-19 VACC, MRNA(PFIZER)/PF 30 MCG/0.3 ML SYRINGE IM (12:31)
== END 2020-05-02 23:59 ==
LOC: IMMUN 05:53
PROVIDERS: PCP Family Medicine; Visit Provider Family Medicine
DX: Z23 Encounter for immunization (principal)
CPT/HCPCS: 0001A; 0002A; 91300

== ENCOUNTER 2020-06-06 21:42 | Emergency (ER) | payer BC, SELFPAY ==
[2020-06-06 10:59] VITALS: BMI 25.5
[2020-06-06 21:44] VITALS: BP 137/97; PULSE 118; RESP 18; TEMP 39.3; O2SAT 98; BMI 25.5
[2020-06-06 22:01] LABS: Bacteria 0 SEEN /hpf (None Seen); Mucous, Urine 0 SEEN /hpf (<or=2+); Squamous Epithelial Cells - UA 0 SEEN /hpf (0-5); White Blood Cells 0 SEEN /hpf (0-5)
--- NOTE | 2020-06-06 22:06 | EDS_ITS ---
HPI History of Present Illness Chief Complaint: Fever Informant: patient Onset/Context/Timing Onset: Yesterday Context: Gradual Onset Timing: Continuous Narrative Narrative: 39-year-old male history of heart murmur and a prior TIA. States that yesterday morning he started feeling ill with right lateral neck lymphadenopathy and today developed fever and chills. He denies any cough, nausea, vomiting or diarrhea. No dysuria. No abdominal or chest pain. He has not had any recent exposures to anyone that has been ill. He has had both Covid vaccinations. Prior similar symptoms: Yes Recent Illness/Hospitalization: [facility] Medical History (Updated 06/07/20 @ 00:[address] Eliseo Jasso MD) Chronic anxiety Fall Heart murmur High cholesterol Migraine Multiple fractures of ribs of left side Pneumothorax, acute Rib fracture Rib fracture Seasonal allergies TIA (transient ischemic attack) Ulnar neuropathy at elbow of right upper extremity Home Medications loratadine 10 mg tablet 10 mg PO DAILY PRN PRN 10/07/17 [History Last Taken 1 Week Ago ~03/06/19] aspirin 81 mg tablet,delayed release 81 mg PO DAILY 10/19/18 [History Last Taken 03/12/19] acetaminophen 325 mg tablet 325 mg PO Q6H PRN tab 03/30/19 [History Last Taken Unknown] ibuprofen 200 mg capsule 200 mg PO Q6H PRN 03/30/19 [History Last Taken Unknown] fluticasone propionate 50 mcg/actuation nasal spray,suspension 2 spray INTRANASAL DAILY #54.6 ml 09/21/19 [Rx Last Taken Unknown] escitalopram oxalate 20 mg tablet 20 mg PO DAILY #90 tab 04/09/20 [Rx Last Taken Unknown] omeprazole 40 mg PO DAILY #60 capsule. 04/12/20 [Rx Last Taken Unknown] cephalexin [Keflex] 750 mg PO BID 7 Days #14 cap 06/07/20 [Rx Last Taken Unknown] Allergy/AdvReac Type Severity Reaction Status Date / Time grass pollen Allergy Mild congestion Verified 06/06/20 21:48 Family History Mother CVA (cerebral vascular accident) Thyroid disorder Father Heart disease Brother Thyroid disorder Surgical History History of hernia repair Hx of colonoscopy Social History Smoking Status: Never smoker alcohol intake: current alcohol intake frequency: a few times a month Alcohol type: beer and wine substance use type: does not use what type of physical activity do you participate in: none ROS ROS ED Constitutional Constitutional ED: Reports change in weight Eyes Eyes: Denies change in eye color, change in vision or foreign body ENT ENT ED: Reports other Details: Swollen lymph nodes on the right lateral aspect of his neck which started yesterday. ; Denies disequillibrium or foreign body in nose Cardiovascular Cardiovascular: Denies abdominal bloating, chest pain or diaphoresis Respiratory/Chest Respiratory/Chest: Denies change in mental status, dry cough or hemoptysis Gastrointestinal Gastrointestinal: Denies change in bowel habits, constipation or excessive flatus Genitourinary Genitourinary ED: Denies anuria, dysuria or hematuria Musculoskeletal Musculoskeletal: Reports arthralgias Integumentary Denies Abrasions Neurologic Neurologic: Denies confusion or convulsions Psychiatric Psychiatric: Denies abnormal sleep pattern, change in libido or homicidal ideation Endocrine Endocrinology: Denies change in body appearance Hematologic/Lymphatic Hematologic/Lymphatic: Reports lymphadenopathy Allergic/Immunologic Allergic/Immunologic ED: Denies GI upset w/certain foods or tongue swelling EXAM Physical Exam Narrative Exam Narrative: Middle-aged male accompanied by his significant other. Vital signs are stable he is febrile 102.8. However he does not look septic or toxic. He is in no acute distress. His pulse ox is 98% with no hypoxia. HEENT exam normal. Posterior pharynx normal. Neck right lateral lymphadenopathy mildly tender. Trachea midline. No meningismus. Lungs clear to auscultation bilaterally. Heart regular rhythm rate about 110. Abdomen soft nontender normal bowel sounds no peritoneal signs. Patient is moving all 4 extremities. Calves nontender without edema. Neurologically is awake and alert with no focal motor deficits. Const Vital Signs: 06/06/20 21:44 06/06/20 22:59 06/06/20 23:01 Temperature 102.8 F H 102.8 F H 102.8 F H Temperature Source Oral Oral Oral Pulse Rate 118 H 100 100 Respiratory Rate 18 16 16 Respiratory Pattern Normal Blood Pressure 137/97 H 120/67 120/67 Blood Pressure Mean 110 84 84 Pulse Ox 98 97 97 Oxygen Delivery Method Room Air Room Air Room Air 06/06/20 23:28 06/07/20 00:10 Temperature 101.2 F H Temperature Source Oral Pulse Rate 91 93 Respiratory Rate 18 18 Respiratory Pattern Blood Pressure 142/69 H 129/71 H Blood Pressure Mean 93 90 Pulse Ox 97 95 Oxygen Delivery Method Room Air Room Air Positive well nourished General Appearance ED: active and cooperative Orientation / Consciousness: awake, oriented to person, oriented to place and oriented to time Exam Limitations: no limitations HEENT Reports normocephalic, head/scalp atraumatic, TM's clear and TM's normal shilpa aterally normocephalic and normal to inspection Face and Sinus: normal facial exam; Negative for sinus tenderness Nose: external nose normal and nares normal Tympanic Membrane ED: Yes TM's clear Mouth ED: Yes oral and palatal mucosa normal, Yes lips normal, Yes tongue normal and Yes moist mucous membranes normal Mouth: oral and palatal mucosa normal, lips normal and tongue normal Eyes PERRL and EOMs intact bilaterally General Eye ED: Yes normal appearance of both eyes Pupil: PERRL EOM: EOM abnormal Neck full ROM, No nuchal rigidity, supple, no meningeal signs and no JVD Neck Narrative: Right lateral chain dyer lymphadenopathy. General: normal visual inspection and trachea midline Lymph Lymphatic: lymphadenopathy Chest Wall inspection of chest normal Resp normal respiratory effort, normal air movement, no retractions and no use of accessory muscles Cardio regular rhythm, no gallops and no JVD Rate: tachycardic Rhythm: regular rhythm GI normal to inspection, nondistended, normoactive bowel sounds, soft to palpation, non-tender and non-distended Palpation: soft Back/Spine no CVA tenderness and normal to inspection General Back: Negative for CVA tenderness Lumbar Spine / Lower Back: normal to inspection Extremity normal to inspection, full ROM, no joint enlargement, no calf tenderness and no pedal edema General Extremety ED: Yes normal exam except as noted General Extremity: normal exam except as noted Neuro oriented x3, CN's II-XII intact bilaterally, moves all extremities and no focal motor deficits Meningeal Signs: no meningeal signs Speech: speech normal Motor Exam: strength 5/5 throughout and no fasciculations Psych mental status grossly normal, thought process normal, cooperative, affect normal, speech normal and activity/motor behavior normal Appearance: grossly normal Attitude: calm and engaged Skin no rashes or lesions noted, no wounds, no jaundice, no petechiae and no mottling General Skin Exam: no breakdown Hair: normal Nails: normal MDM MDM MDM Narrative Medical decision making narrative: Middle-aged male with fever. Benign exam except for right lateral neck lymphadenopathy. Lungs are clear. Abdomen soft. Clinically does not look septic. Concerned with the fever would be infectious etiology also consistent with lymphadenopathy versus other concerns such as lymphoma etc. Laboratory work-up was unremarkable nonspecific. White count was elevated at 13.7. Hemoglobin was normal. Chemistries unremarkable except potassium was slightly low at 3.1. And his creatinine was slightly elevated at 1.51. Lactic acid was 2.2. UA negative for any signs of infection there was blood on the macroscopic sample. Blood cultures pending. PT and INR and PTT were normal. Liver enzymes were unremarkable. Chest x-ray portable 1 view interpreted by myself and the radiologist both showed no acute abnormality. No infiltrate. Normal cardiac silhouette. Multiple repeat exams the last at 12:07 AM. He is resting comfortably. His current temperature is 101.2 orally. He has received IV fluids and p.o. Motrin. Exam is unchanged he still has the lymphadenopathy on the right lateral neck. Patient will be placed on Keflex and given a dose in the ER and treated for 7 days. Alternate Tylenol Motrin for pain and fever. Follow-up with his primary care physician next several days. Return if worse. Lab Data Labs: Laboratory Results - last 24 hr 06/06/20 06/06/20 06/06/20 21:55 22:34 22:34 WBC 13.7 H RBC 4.86 Hgb 14.1 Hct 42.6 MCV 87.7 MCH 29.0 MCHC 33.1 RDW Std Deviation 39.9 RDW Coeff of Tracee 12.6 Plt Count 358 MPV 9.6 Immature Gran % (Auto) 1.200 H Neut % (Auto) 88.5 H Lymph % (Auto) 4.1 L Emanuel % (Auto) 5.9 Eos % (Auto) 0.1 Baso % (Auto) 0.2 Absolute Neuts (auto) 12.1 H Absolute Lymphs (auto) 0.56 L Nucleated RBC % 0 Differential Comment SCANNED PT 14.2 INR 1.2 APTT 26.6 Sodium Potassium Chloride Carbon Dioxide Anion Gap BUN Creatinine Estim Creat Clear Calc Est GFR (MDRD) Af Amer Est GFR (MDRD) Non-Af BUN/Creatinine Ratio Glucose Lactic Acid Calcium Total Bilirubin AST ALT Alkaline Phosphatase Total Protein Albumin Globulin Albumin/Globulin Ratio Urine Color Yellow Urine Clarity Clear Urine pH 5.0 Ur Specific [place] 1.020 Urine Protein 30 H Urine Glucose (UA) 50 H Urine Ketones Negative Urine Occult Blood 250 H Urine Nitrite Negative Urine Bilirubin Negative Urine Urobilinogen Normal Ur Leukocyte Esterase Negative Urine RBC 0-5 SEEN Urine WBC 0 SEEN Ur Squamous Epith Cells 0 SEEN Urine Bacteria 0 SEEN Urine Mucus 0 SEEN 06/06/20 06/06/20 22:34 22:34 WBC RBC Hgb Hct MCV MCH MCHC RDW Std Deviation RDW Coeff of Tracee Plt Count MPV Immature Gran % (Auto) Neut % (Auto) Lymph % (Auto) Emanuel % (Auto) Eos % (Auto) Baso % (Auto) Absolute Neuts (auto) Absolute Lymphs (auto) Nucleated RBC % Differential Comment PT INR APTT Sodium 138 Potassium 3.1 L Chloride 107 Carbon Dioxide 25.0 Anion Gap 6 BUN 17 Creatinine 1.51 H Estim Creat Clear Calc 52.67 Est GFR (MDRD) Af Amer 61 Est GFR (MDRD) Non-Af 50 L BUN/Creatinine Ratio 11.3 Glucose 170 H Lactic Acid 2.2 H* Calcium 8.4 L Total Bilirubin 0.50 AST 12 L ALT 20 Alkaline Phosphatase 53 Total Protein 7.6 Albumin 3.8 Globulin 3.8 Albumin/Globulin Ratio 1.0 Urine Color Urine Clarity Urine pH Ur Specific [place] Urine Protein Urine Glucose (UA) Urine Ketones Urine Occult Blood Urine Nitrite Urine Bilirubin Urine Urobilinogen Ur Leukocyte Esterase Urine RBC Urine WBC Ur Squamous Epith Cells Urine Bacteria Urine Mucus Radiography Diagnostic Testing: Radiology Impression Chest X-Ray 06/06/20 22:56 IMPRESSION: Normal. at 2323 Reported and signed by: Terrance Maddox MD Electronically Signed: Terrance Maddox MD at 23:22 EDT Tel , Service support , Discharge Plan Triage Chief Complaint: Fever ED Provider: Eliseo Jasso Dx/Rx/DC Orders Clinical Impression: Fever, Acute lymphadenitis Instructions: ED ADENITIS Cervical Abx Tx, ED FUO Adult Prescriptions: New cephalexin [Keflex] 750 mg capsule 750 mg PO BID 7 Days Qty: 14 RF: 0 No Action loratadine [Claritin] 10 mg tablet 10 mg PO DAILY PRN PRN (Reason: Allergies) RF: 0 aspirin 81 mg tablet,delayed release (DR/EC) 81 mg PO DAILY RF: 0 acetaminophen [Tylenol] 325 mg tablet 325 mg PO Q6H PRN (Reason: Pain 1-10 Or Fever) RF: 0 ibuprofen [Motrin IB] 200 mg capsule 200 mg PO Q6H PRN (Reason: Pain 1-10 Or Fever) RF: 0 fluticasone propionate 50 mcg/actuation spray,suspension 2 spray INTRANASAL DAILY Qty: 54.6 RF: 3 omeprazole 40 MG capsule,delayed release(DR/EC) 40 mg PO DAILY Qty: 60 RF: 1 escitalopram oxalate 20 mg tablet 20 mg PO DAILY Qty: 90 RF: 3 Primary Care Provider: Edvin Tobar Referrals: Edvin Tobar, DO [Primary Care Provider] - As soon as possible (Follow-up with your doctor no later than Wednesday for reevaluation to ensure you are improving.) Activity Restrictions/Additional Instructions: Plenty of fluids and rest. Alternate Tylenol and Motrin for pain and fever. Keflex the antibiotic 1 pill 4 times a day for the next 7 days in case she was infected lymph node on the right side of her neck. Return to emergency department if you are feeling a lot worse. Disposition Disposition: Home, self care Discharge Date/Time: 06/07/20 00:26
[2020-06-06 22:11] LABS: Color, Urine Yellow (Yellow); Glucose, Dipstick 50 mg/dl (Normal); Ketone-Dipstick Negative (Negative); Leukocyte Esterase-Dipstick Negative /ul (Negative); Nitrite-Dipstick Negative (Negative); Occult Blood-Urine 250 /ul (Negative); Protein-Dipstick 30 mg/dl (Negative); Urine Bilirubin Dipstick Negative (Negative); Urine Clarity Clear (Clear); Urine Urobilinogen Normal (Normal)
[2020-06-06 22:17] LABS: Red Blood Cells-Urine 0-5 SEEN /hpf (0-5)
--- NOTE | 2020-06-06 22:56 | RAD_ITS ---
HISTORY: fever EXAM: XR Chest 1 View: COMPARISON: March 20, 2019 FINDINGS: # of images incl. paperwork: 1 Lungs are clear. Heart is not enlarged. No acute osseous pathology perceived. Pulmonary vascularity is distinct. No effusions. RAD/Chest 1 View (Portable) IMPRESSION: Normal. at 2323 Reported and signed by: Terrance Maddox MD Electronically Signed: Terrance Maddox MD at 23:22 EDT Tel , Service support ,
[2020-06-06 22:59] VITALS: BP 120/67; PULSE 100; RESP 16; TEMP 39.3; O2SAT 97
[2020-06-06 23:01] VITALS: BP 120/67; PULSE 100; RESP 16; TEMP 39.3; O2SAT 97
[2020-06-06] MEDS: 0.9% Normal Saline 1,000 ML 999 ML IV (23:03)
[2020-06-06] MEDS: Ibuprofen 600 MG Tablet PO (23:04)
[2020-06-06 23:06] LABS: International Normalized Ratio 1.2; Prothrombin Time (Protime)PT. 14.2 SECONDS (11.7-14.9)
[2020-06-06 23:07] LABS: Partial Thromboplast Time 26.6 Seconds (24.1-36.2)
[2020-06-06 23:15] LABS: AST(SGOT) 12 U/L (15-37); Alanine Aminotransfer ALT/SGPT 20 U/L (16-61); Albumin, Serum 3.8 g/dL (3.2-5.0); Alkaline Phosphatase 53 U/L (45-117); Anion Gap 6 (5-15); BUN 17 mg/dL (7-18); BUN/Creat Ratio 11.3 RATIO (10-20); Calcium,Total 8.4 mg/dL (8.5-10.1); Chloride 107 mmol/L (98-107); Creatinine, Serum 1.51 mg/dL (0.70-1.30); EST Glomerular Filtration Rate 50 mL/min (>60); Est Glom Filt Rate - Afr Amer 61 mL/min (>60); Estimated Creatinine Clearance 52.67 ml/min; Globulin 3.8 g/dL (2.2-4.2); Glucose 170 mg/dL (74-106); Potassium 3.1 mmol/L (3.5-5.1); Protein, Total 7.6 g/dL (6.4-8.2); Sodium Level 138 mmol/L (136-145)
[2020-06-06 23:16] LABS: Absolute Lymphocyte Count 0.56 X10^3/uL (0.83-4.51); Absolute Neutrophil Count 12.1 X10^3/uL (2.0-7.7); Basophil# 0.03 X10^3/uL; Basophil% 0.2 % (0-1); Eosinophil# 0.01 X10^3/uL; Eosinophils% 0.1 % (0-5); Hematocrit 42.6 % (40-54); Hemoglobin 14.1 g/dL (13.0-16.5); Lymphocyte # 0.56 X10^3/ul (0.83-4.51); Lymphocyte % 4.1 % (19-41); Mean Corp Hgb Conc 33.1 g/dL (32-36); Mean Corpuscular Volume 87.7 fL (80-94); Mean Platelet Vol. 9.6 fl (6.2-12.0); Monocyte# 0.81 X10^3/uL; Monocyte% 5.9 % (0-10); NRBC Flagged by Analyzer 0 % (0-5); Neutrophil # 12.12 X10^3/uL (2.7-7.7); Neutrophil % 88.5 % (47-70); POSITIVE DIFFERENTIAL YES; Platelet Count 358 K/mm3 (150-450); RBC Distribution Width CV 12.6 % (11.6-14.6); RBC Distribution Width SD 39.9 fl (35.1-43.9); Red Blood Count 4.86 M/mm3 (4.6-6.2); White Blood Count 13.7 K/mm3 (4.4-11.0)
[2020-06-06 23:18] LABS: Differential Indicated SCAN CRITERIA MET
[2020-06-06 23:28] VITALS: BP 142/69; PULSE 91; RESP 18; O2SAT 97
[2020-06-06 23:32] LABS: Lactic Acid 2.2 mmol/L (0.4-1.9)
[2020-06-06 23:59] LABS: Differential Comment SCANNED
[2020-06-07 00:10] VITALS: BP 129/71; PULSE 93; RESP 18; TEMP 38.4; O2SAT 95
[2020-06-07] MEDS: Cephalexin 250 MG Capsule 750 MG PO (00:20)
[2020-06-07] MEDS: Acetaminophen 500 MG Tablet 1000 MG PO (00:20)
[2020-06-07 02:53] LABS: Reflex Lactate? Y
== END 2020-06-07 00:26 | disposition home or self-care (01) ==
PROVIDERS: Emergency Provider Emergency Medicine; PCP Family Medicine
DX: L04.9 Acute lymphadenitis, unspecified (principal); B95.4 Other streptococcus as the cause of diseases classified elsewhere; R50.9 Fever, unspecified; E78.00 Pure hypercholesterolemia, unspecified; F41.9 Anxiety disorder, unspecified; Z86.73 Personal history of transient ischemic attack (TIA), and cerebral infarction without residual deficits; Z79.82 Long term (current) use of aspirin
CPT/HCPCS: 71045; 80053; 81001; 83605; 85025; 85610; 85730; 87040; 87077; 87149; 87186; 87426; 96360; 99285; J7030; A4216

== ENCOUNTER 2020-06-09 14:14 | Emergency (ER) | payer BC, SELFPAY ==
[2020-06-09 14:15] VITALS: BP 137/73; PULSE 78; RESP 16; TEMP 37.6; O2SAT 98; BMI 26.4
--- NOTE | 2020-06-09 14:27 | CT_ITS ---
STUDY: CT BRAIN WITHOUT CONTRAST REASON FOR EXAM: Male, 59 years old. Swelling to right oriental orthodox, cephalgia RADIATION DOSAGE (If Supplied By Facility): CTDIvol = ( 44.99 ) mGy, DLP = ( 779.24 ) mGycm TECHNIQUE: Transaxial CT imaging of the brain was performed without administration of intravenous contrast material. Individualized dose optimization techniques were used for this CT. COMPARISON: No relevant priors. FINDINGS: There is no intra-/extra-axial fluid collection, mass effect, or midline shift. The manuel/white matter junction is preserved. The basal cisterns are patent. Polyps versus retention cysts are seen in the bilateral maxillary sinuses.. The calvarium is intact. Soft tissue swelling is noted overlying the right temporal region. CT/Brain/Head without Contrast IMPRESSION: No acute intracranial finding. Bilateral medicines disease. Soft tissue swelling overlying the right temporal region. Electronically Signed: Raleigh Hrendon MD at 15:37 EDT Tel , Service support ,
[2020-06-09 14:46] LABS: Absolute Lymphocyte Count 0.43 X10^3/uL (0.83-4.51); Absolute Neutrophil Count 9.1 X10^3/uL (2.0-7.7); Basophil# 0.01 X10^3/uL; Basophil% 0.1 % (0-1); Hemoglobin 13.5 g/dL (13.0-16.5); Lymphocyte # 0.43 X10^3/ul (0.83-4.51); Lymphocyte % 4.3 % (19-41); Mean Corp Hgb Conc 33.8 g/dL (32-36); Mean Corpuscular Hgb 29.5 pg (27.0-32.0); Mean Corpuscular Volume 87.5 fL (80-94); Mean Platelet Vol. 9.5 fl (6.2-12.0); Monocyte# 0.41 X10^3/uL; Monocyte% 4.1 % (0-10); NRBC Flagged by Analyzer 0 % (0-5); Neutrophil # 9.14 X10^3/uL (2.7-7.7); Neutrophil % 90.9 % (47-70); POSITIVE DIFFERENTIAL YES; Platelet Count 357 K/mm3 (150-450); RBC Distribution Width CV 12.4 % (11.6-14.6); RBC Distribution Width SD 39.8 fl (35.1-43.9); Red Blood Count 4.57 M/mm3 (4.6-6.2); White Blood Count 10.1 K/mm3 (4.4-11.0)
[2020-06-09 14:47] LABS: Differential Indicated SCAN CRITERIA MET
[2020-06-09] MEDS: DiphenhydrAMINE 50 MG/ML Syringe IV (14:50)
[2020-06-09] MEDS: 0.9% Normal Saline 1,000 ML 999 ML IV (14:50)
[2020-06-09] MEDS: Famotidine 200 MG/20 ML MDV 20 MG in 0.9% Normal Saline (Pres. free 8 ML 300 MG IV (14:54)
--- NOTE | 2020-06-09 14:54 | EDS_ITS ---
HPI History of Present Illness Chief Complaint: Allergic Reaction Narrative Narrative: 59-year-old male patient Dr. Edvin Tobar. He reports that he has swelling to his right moravian that began approximately 30 minutes ago. States that he had been out working in the yard. But he does not believe that he was exposed to anything that he would have an allergic reaction to. Patient reports that he noted that he has swelling to his right moravian area. He denies any angioedema of his lips, tongue, or pharynx. He denies any other swelling or rash. He has never had anything like this before. Of note the patient was seen in the emergency department 3 days ago for a fever of 102 degrees. He had right-sided lymphadenopathy and was placed on Keflex. Blood cultures returned yesterday. 1 out of 2 bottles grew group C strep. The patient reports that he has not had a fever for the past 2 days. He denies any sore throat. He reports he has a cough productive of clear sputum without blood. He denies any chest pain or shortness of breath. No abdominal pain, nausea, or vomiting. He reports he has minimal diarrhea. No blood in stools or black tarry stools. No dysuria. He has a headache that is 6 out of 10 in severity. [facility] Medical History (Updated 06/09/20 @ 16:[address] Mickey Nina MD) Chronic anxiety Fall Heart murmur High cholesterol Migraine Multiple fractures of ribs of left side Pneumothorax, acute Rib fracture Rib fracture Seasonal allergies TIA (transient ischemic attack) Ulnar neuropathy at elbow of right upper extremity Home Medications loratadine 10 mg tablet 10 mg PO DAILY PRN PRN 10/07/17 [History Last Taken 1 Week Ago ~03/06/19] aspirin 81 mg tablet,delayed release 81 mg PO DAILY 10/19/18 [History Last Taken 03/12/19] acetaminophen 325 mg tablet 325 mg PO Q6H PRN tab 03/30/19 [History Last Taken Unknown] ibuprofen 200 mg capsule 200 mg PO Q6H PRN 03/30/19 [History Last Taken Unknown] fluticasone propionate 50 mcg/actuation nasal spray,suspension 2 spray INTRANASAL DAILY #54.6 ml 09/21/19 [Rx Last Taken Unknown] escitalopram oxalate 20 mg tablet 20 mg PO DAILY #90 tab 04/09/20 [Rx Last Taken Unknown] omeprazole 40 mg PO DAILY #60 capsule. 04/12/20 [Rx Last Taken Unknown] cephalexin [Keflex] 750 mg PO BID 7 Days #14 cap 06/07/20 [Rx Last Taken Unknown] Allergy/AdvReac Type Severity Reaction Status Date / Time grass pollen Allergy Mild congestion Verified 06/09/20 14:15 Family History Mother CVA (cerebral vascular accident) Thyroid disorder Father Heart disease Brother Thyroid disorder Surgical History History of hernia repair Hx of colonoscopy Social History Smoking Status: Never smoker alcohol intake: current alcohol intake frequency: a few times a month Alcohol type: beer and wine substance use type: does not use what type of physical activity do you participate in: none ROS ROS ED Constitutional Constitutional ED: Denies chills, fever(s) or sweats Eyes Eyes: Denies change in vision ENT ENT ED: Denies sore throat Cardiovascular Cardiovascular: Denies chest pain Respiratory/Chest Respiratory/Chest: Reports cough; Denies dyspnea or dyspnea on exertion Gastrointestinal Gastrointestinal: Reports diarrhea; Denies abdominal pain, melena, nausea or vomiting Genitourinary Genitourinary ED: Denies dysuria or urinary frequency Musculoskeletal Musculoskeletal: Denies myalgias Integumentary Denies rash Neurologic Neurologic: Reports headache(s); Denies paresthesias or weakness Allergic/Immunologic Allergic/Immunologic ED: Denies mouth swelling, tongue swelling or urticaria EXAM Physical Exam Const Vital Signs: 06/09/20 14:15 Temperature 99.6 F H Temperature Source Temporal Pulse Rate 78 Respiratory Rate 16 Blood Pressure 137/73 H Blood Pressure Mean 94 Pulse Ox 98 Oxygen Delivery Method Room Air Positive well nourished and well developed General Appearance ED: well developed HEENT Reports normocephalic, head/scalp atraumatic and moist mucous membranes HEENT Narrative: No pharyngeal erythema or tonsillar exudate. He does have bilateral anterior cervical lymphadenopathy that is nontender. There is soft tissue swelling over his right moravian. There is no erythema or urticarial lesions. Eyes PERRL Neck no lymphadenopathy, supple and no JVD General: Negative for tenderness Resp normal respiratory effort and clear to auscultation bilaterally Cardio regular rate, regular rhythm and no murmurs GI normal to inspection, nondistended, normoactive bowel sounds and non-tender GI Narrative: No guarding, rebound, or peritoneal signs. Palpation: soft Back/Spine Back/Spine Narrative: Nontender. Extremity General Extremety ED: Negative for edema or tenderness General Extremity: Negative for edema Neuro oriented x3, CN's II-XII intact bilaterally and no sensory deficits noted Sensorium / Orientation: alert Motor Exam: strength 5/5 throughout Psych mental status grossly normal Skin no rashes or lesions noted MDM MDM Lab Data Labs: Laboratory Results - last 24 hr 06/09/20 06/09/20 06/09/20 14:40 14:40 14:40 WBC 10.1 RBC 4.57 L Hgb 13.5 Hct 40.0 MCV 87.5 MCH 29.5 MCHC 33.8 RDW Std Deviation 39.8 RDW Coeff of Tracee 12.4 Plt Count 357 MPV 9.5 Immature Gran % (Auto) 0.600 Neut % (Auto) 90.9 H Lymph % (Auto) 4.3 L [place] % (Auto) 4.1 Eos % (Auto) 0.0 Baso % (Auto) 0.1 Absolute Neuts (auto) 9.1 H Absolute Lymphs (auto) 0.43 L Nucleated RBC % 0 Differential Comment SCANNED Sodium 140 Potassium 3.6 Chloride 109 H Carbon Dioxide 26.0 Anion Gap 5 BUN 12 Creatinine 1.25 Estim Creat Clear Calc 63.63 Est GFR (MDRD) Af Amer 76 Est GFR (MDRD) Non-Af 63 BUN/Creatinine Ratio 9.6 L Glucose 116 H Lactic Acid 1.4 Calcium 8.6 Radiography Diagnostic Testing: Radiology Impression Brain CT 06/09/20 14:27 IMPRESSION: No acute intracranial finding. Bilateral medicines disease. Soft tissue swelling overlying the right temporal region. Electronically Signed: Raleigh Herndon MD at 15:37 EDT Tel , Service support , Treatment and Re-Evaluation Comments:: Emergency department course: Patient had an IV placed and blood cultures were obtained. He was given a dose of Unasyn IV as the sensitivities for the group C strep has returned and it is sensitive to ampicillin. The patient reports he has not had a fever for the past 2 days. Only 1 of 2 bottles grew group C strep. He was also given a dose of Benadryl and Pepcid IV due to the questionable allergic reaction. He started a Medrol Dosepak today and was not given another dose of steroids. Treatment plan: Patient feels well and would like to go home. The patient was discussed with Dr. Garcia of infectious diseases. He suggested doing a CT of the soft tissue of neck to rule out an occult abscess. I discussed this with the patient and this has been ordered. If the CT is negative the patient wants to go home. He will be instructed to continue the Keflex and follow-up with his primary care physician in 2 days to get the results of the new blood cultures. Return to the emergency department for any worsening symptoms or fever. Disposition: Pending. Discharge Plan Triage Chief Complaint: Allergic Reaction ED Provider: Mickey Nina Dx/Rx/DC Orders Clinical Impression: Right facial swelling Instructions: ED Allergic Reaction Local Other Prescriptions: No Action loratadine [Claritin] 10 mg tablet 10 mg PO DAILY PRN PRN (Reason: Allergies) RF: 0 aspirin 81 mg tablet,delayed release (DR/EC) 81 mg PO DAILY RF: 0 acetaminophen [Tylenol] 325 mg tablet 325 mg PO Q6H PRN (Reason: Pain 1-10 Or Fever) RF: 0 ibuprofen [Motrin IB] 200 mg capsule 200 mg PO Q6H PRN (Reason: Pain 1-10 Or Fever) RF: 0 fluticasone propionate 50 mcg/actuation spray,suspension 2 spray INTRANASAL DAILY Qty: 54.6 RF: 3 omeprazole 40 MG capsule,delayed release(DR/EC) 40 mg PO DAILY Qty: 60 RF: 1 cephalexin [Keflex] 750 mg capsule 750 mg PO BID 7 Days Qty: 14 RF: 0 escitalopram oxalate 20 mg tablet 20 mg PO DAILY Qty: 90 RF: 3 Primary Care Provider: Edvin Tobar Referrals: Edvin Tobar DO [Primary Care Provider] - 2 Days
[2020-06-09 14:59] LABS: Anion Gap 5 (5-15); BUN 12 mg/dL (7-18); BUN/Creat Ratio 9.6 RATIO (10-20); Calcium,Total 8.6 mg/dL (8.5-10.1); Chloride 109 mmol/L (98-107); Creatinine, Serum 1.25 mg/dL (0.70-1.30); EST Glomerular Filtration Rate 63 mL/min (>60); Est Glom Filt Rate - Afr Amer 76 mL/min (>60); Estimated Creatinine Clearance 63.63 ml/min; Glucose 116 mg/dL (74-106); Potassium 3.6 mmol/L (3.5-5.1); Sodium Level 140 mmol/L (136-145)
[2020-06-09 15:12] LABS: Differential Comment SCANNED
[2020-06-09 15:17] LABS: Lactic Acid 1.4 mmol/L (0.4-1.9)
--- NOTE | 2020-06-09 15:56 | CT_ITS ---
STUDY: CT SOFT TISSUE NECK WITH CONTRAST REASON FOR EXAM: Male, 59 years old. Infection, pain RADIATION DOSAGE (If Supplied By Facility): CTDIvol = ( 18.42 ) mGy, DLP = ( 644.25 ) mGycm TECHNIQUE: The patient was scanned in a multi-detector CT scanner. High resolution transaxial imaging was performed following intravenous administration of IV 75mL [id number]. Sagittal and coronal images were reconstructed. Individualized dose optimization techniques were used for this CT. COMPARISON: None. FINDINGS: Bilateral globes are intact. Mild mucoperiosteal thickening of the bilateral ethmoid air cells is seen. There are polyps versus retention cysts in the bilateral maxillary sinuses. Bilateral parotid and submandibular glands are intact. No cervical adenopathy is seen. Asymmetric enlargement of the right piriform sinus is noted, nonspecific. No definite mass is noted. The airways patent. Epiglottis is of normal contour and size. There are small thyroid nodules measuring up to 0.9 cm. Ultrasound may be obtained for further evaluation. The vascular structures are grossly intact. Upper lungs are clear. Multilevel cervical spondylosis is seen. CT/Soft Tissue Neck WITH Contrast IMPRESSION: No definite acute finding the soft tissue neck. Electronically Signed: Raleigh Herndon MD at 16:55 EDT Tel , Service support ,
--- NOTE | 2020-06-09 16:05 | ED.RN ---
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
[2020-06-09 16:07] VITALS: BP 129/78; PULSE 69; RESP 16
[2020-06-09 17:25] VITALS: BP 135/86; PULSE 72; RESP 15
== END 2020-06-09 17:26 | disposition home or self-care (01) ==
PROVIDERS: Emergency Provider Emergency Medicine; PCP Family Medicine
DX: T78.40XA Allergy, unspecified, initial encounter (principal); R22.0 Localized swelling, mass and lump, head; E78.00 Pure hypercholesterolemia, unspecified; F41.9 Anxiety disorder, unspecified; Z86.73 Personal history of transient ischemic attack (TIA), and cerebral infarction without residual deficits; Z79.82 Long term (current) use of aspirin
CPT/HCPCS: 70450; 70491; 80048; 83605; 85025; 87040; 96365; 96375; 99283; J7030; J7050; Q9967; A4216; J0295; J3490

== ENCOUNTER → 2021-05-28 | Outpatient (CLI) | payer BC, SELFPAY ==
[2021-05-28 15:14] LABS: Absolute Lymphocyte Count 0.98 X10^3/uL (0.83-4.51); Absolute Neutrophil Count 4.5 X10^3/uL (2.0-7.7); Basophil# 0.02 X10^3/uL; Basophil% 0.3 % (0-1); Eosinophil# 0.05 X10^3/uL; Eosinophils% 0.8 % (0-5); Hematocrit 45.4 % (40-54); Hemoglobin 15.2 g/dL (13.0-16.5); Lymphocyte # 0.98 X10^3/ul (0.83-4.51); Lymphocyte % 16.1 % (19-41); Mean Corp Hgb Conc 33.5 g/dL (32-36); Mean Corpuscular Hgb 29.3 pg (27.0-32.0); Mean Corpuscular Volume 87.6 fL (80-94); Mean Platelet Vol. 9.8 fl (6.2-12.0); Monocyte% 8.2 % (0-10); NRBC Flagged by Analyzer 0 % (0-5); Neutrophil # 4.51 X10^3/uL (2.7-7.7); Neutrophil % 74.3 % (47-70); Platelet Count 412 K/mm3 (150-450); RBC Distribution Width SD 41.5 fl (35.1-43.9); Red Blood Count 5.18 M/mm3 (4.6-6.2); White Blood Count 6.1 K/mm3 (4.4-11.0)
[2021-05-28 15:50] LABS: ALB/GLOB Ratio 1.1 RATIO (0.9-2.4); AST(SGOT) 19 U/L (15-37); Alanine Aminotransfer ALT/SGPT 26 U/L (16-61); Albumin, Serum 4.1 g/dL (3.2-5.0); Alkaline Phosphatase 54 U/L (45-117); Anion Gap 5 (5-15); BUN 16 mg/dL (7-18); BUN/Creat Ratio 11.9 RATIO (10-20); Calcium,Total 9.1 mg/dL (8.5-10.1); Chloride 107 mmol/L (98-107); Cholesterol 229 mg/dL (200); Creatinine, Serum 1.35 mg/dL (0.70-1.30); EST Glomerular Filtration Rate 57 mL/min (>60); Est Glom Filt Rate - Afr Amer 69 mL/min (>60); Globulin 3.7 g/dL (2.2-4.2); Glucose 104 mg/dL (74-106); High Density Lipoprotein 51 mg/dL; Potassium 4.2 mmol/L (3.5-5.1); Protein, Total 7.8 g/dL (6.4-8.2); Sodium Level 139 mmol/L (136-145); Triglycerides 106 mg/dL; Very Low Density Lipoprotein 21 mg/dL (5-40)
== END | disposition home or self-care (01) ==
LOC: BIMLAB 13:36
PROVIDERS: PCP Family Medicine; Referring Provider Family Medicine; Visit Provider Family Medicine
DX: R04.0 Epistaxis (principal); E78.00 Pure hypercholesterolemia, unspecified
CPT/HCPCS: 36415; 80053; 80061; 85025

== ENCOUNTER → 2022-05-15 | Outpatient (CLI) | payer OTHER, SELFPAY ==
--- NOTE | 2022-05-15 08:45 | RAD_ITS ---
STUDY: X-RAY - ESOPHAGUS (BARIUM SWALLOW) WITH FLUOROSCOPY REASON FOR EXAM: Male, 61 years old. Swallowing problems TECHNIQUE: 19 images view(s) of the esophagus were obtained following swallowing of barium. FLUOROSCOPY TIME (if supplied): (27 seconds) minutes/seconds. 12.97 mGy COMPARISON: None. FINDINGS: There is no demonstrated esophageal foreign body. There is no demonstrated stricture or mucosal abnormality. Normal gastroesophageal junction, without a demonstrated hiatal hernia. The patient ingested a 12 mm tablet of barium without any difficulty. Normal visualized aortic arch and descending thoracic aorta. Normal visualized pulmonary parenchyma. Normal visualized osseous structures of the thorax. RAD/Esophagus Dual Contrast IMPRESSION: Normal plain film x-ray examination (barium swallow) of the esophagus. Electronically Signed: Andrzej Steen MD at 9:22 EDT ,
== END | disposition home or self-care (01) ==
PROVIDERS: PCP Family Medicine; Referring Provider Family Medicine; Visit Provider Family Medicine
DX: R13.10 Dysphagia, unspecified (principal)
CPT/HCPCS: 74220; 74221

== ENCOUNTER → 2022-07-08 | Outpatient (CLI) | payer OTHER, SELFPAY ==
[2022-07-08 17:19] LABS: ALB/GLOB Ratio 1.2 RATIO (0.9-2.4); AST(SGOT) 28 U/L (15-37); Alanine Aminotransfer ALT/SGPT 38 U/L (16-61); Albumin, Serum 4.2 g/dL (3.2-5.0); Alkaline Phosphatase 54 U/L (45-117); Anion Gap 8 (5-15); BUN 17 mg/dL (7-18); BUN/Creat Ratio 13.9 RATIO (10-20); Calcium,Total 8.9 mg/dL (8.5-10.1); Chloride 107 mmol/L (98-107); Cholesterol 213 mg/dL (200); Creatinine, Serum 1.22 mg/dL (0.70-1.30); EST Glomerular Filtration Rate 64 mL/min (>60); Est Glom Filt Rate - Afr Amer 77 mL/min (>60); Globulin 3.6 g/dL (2.2-4.2); Glucose 86 mg/dL (74-106); High Density Lipoprotein 50 mg/dL; Potassium 3.7 mmol/L (3.5-5.1); Protein, Total 7.8 g/dL (6.4-8.2); Sodium Level 137 mmol/L (136-145); Triglycerides 124 mg/dL; Very Low Density Lipoprotein 25 mg/dL (5-40)
== END | disposition home or self-care (01) ==
LOC: BIMLAB 16:09
PROVIDERS: PCP Family Medicine; Visit Provider Family Medicine
DX: R13.10 Dysphagia, unspecified (principal); F32.9 Major depressive disorder, single episode, unspecified; F41.9 Anxiety disorder, unspecified; E78.00 Pure hypercholesterolemia, unspecified
CPT/HCPCS: 36415; 80053; 80061

== ENCOUNTER 2022-09-27 14:15 | Observation (INO) | payer OTHER, SELFPAY ==
[2022-09-27] VITALS (13 sets, daily range): BP systolic 132–176; BP diastolic 69–108; PULSE 62–81; RESP 15–19; TEMP 36.2–36.8; O2SAT 97–100; BMI 29.6; BMI 29.9; BMI 28.8
--- NOTE | 2022-09-27 14:18 | ED.RN ---
DR GAVIN NOTIFIED OF PT'S SYMPTOMS
--- NOTE | 2022-09-27 14:18 | CT_ITS ---
We are attempting to reach an attending provider to discuss findings. An addendum with communication details will be sent when the communication is complete. HISTORY: Neuro deficit, acute, stroke suspected. TECHNIQUE: Multiple axial images were obtained of the head without intravenous contrast. A radiation dose optimization technique was used for this scan. 235 images. COMPARISON: 06/09/2020. FINDINGS: BRAIN PARENCHYMA: No significant attenuation abnormality. No acute intra-axial hemorrhage. CSF SPACES: Cerebral ventricles, cortical sulci, and other extra-axial CSF spaces within normal limits in size for age. No midline shift or other significant mass effect. No acute extra-axial hemorrhage. OTHER: Intact calvarium. Small maxillary sinus retention cysts. Unremarkable orbits. ASPECTS Score for Acute Strokes: 10 CT/STROKE Brain/Head without Cont IMPRESSION: No acute intracranial process identified. Electronically Signed: Fay Palacios MD at 14:40 EDT ,
--- NOTE | 2022-09-27 14:19 | CT_ITS ---
STUDY: CTA HEAD AND NECK WITH CONTRAST REASON FOR EXAM: Male, 62 years old. Neuro deficit, acute, stroke suspected RADIATION DOSAGE (If Supplied By Facility): CTDIvol = ( 20.19 ) mGy, DLP = ( 787.33 ) mGycm TECHNIQUE: CT angiography was performed with a multi-detector CT scanner. Data acquisition was obtained from the skull base through the vertex following intravenous administration of IV 100mL Isovue-370. MIP images were reconstructed from the axial data set. Post-processing of the angiographic images was performed, with multiplanar reformation and 3D reconstruction. Individualized dose optimization techniques were used for this CT. COMPARISON: No relevant priors. FINDINGS: Normal bilateral petrous carotid arteries. Normal right cavernous carotid artery with a normal supraclinoid bifurcation. Normal left cavernous carotid artery with a normal supraclinoid bifurcation. Normal right A1 segments of the anterior cerebral artery. Normal left A1 segments of the anterior cerebral artery. Normal intact anterior communicating artery (ACOM). Normal bilateral A2 segments of the anterior cerebral arteries. Normal right M1 and M2 segments of the middle cerebral arteries, with a normal M1 bifurcation. Normal left M1 and M2 segments of the middle cerebral arteries, with a normal M1 bifurcation. Normal right posterior communicating artery (PCOM). There is a persistent origin of the left posterior cerebral artery with absence of the posterior communicating artery (PCOM). Normal bilateral vertebral arteries. Normal basilar artery with a normal basilar bifurcation. The visualized bilateral superior cerebellar (SCA) arteries are normal. Normal bilateral P1, P2 and visualized P3 segments of the posterior cerebral arteries. There is no demonstrated aneurysm of the ute of Arce. There is no demonstrated abnormality of the visualized brain. AORTIC ARCH: Normal visualized aortic arch. Normal origins of the brachiocephalic, left common carotid, and left subclavian arteries. RIGHT CAROTID ARTERIES: Normal right common carotid artery (CCA). There is mild atherosclerotic plaque formation with minimal narrowing of the right carotid bulb. Normal origin of the right internal carotid (ICA) artery without a hemodynamically significant stenosis. Normal visualized cervical portion of the right internal carotid artery. Normal origin of the right external carotid artery (ECA). LEFT CAROTID ARTERIES: Normal left common carotid artery (CCA). Normal left common carotid bulb. Normal origin of the left internal carotid (ICA) artery without a hemodynamically significant stenosis. Normal visualized cervical portion of the left internal carotid artery. Normal origin of the left external carotid artery (ECA). VERTEBRAL ARTERIES: Normal bilateral vertebral arteries. CT/STROKE CTA Head AND Neck W/Con IMPRESSION: Normal CTA Head and neck with contrast. N.B. : The above Results were Read Back by Joao Garcia MD to Tone Joseph and understanding confirmed on 09/27/2022 15:09:17 (ET). Electronically Signed: Joao Garcia MD at 15:10 EDT ,
[2022-09-27 14:27] LABS: Absolute Lymphocyte Count 1.31 X10^3/uL (0.83-4.51); Absolute Neutrophil Count 4.8 X10^3/uL (2.0-7.7); Basophil# 0.05 X10^3/uL; Basophil% 0.7 % (0-1); Eosinophils% 2.9 % (0-5); Hematocrit 48.2 % (40-54); Hemoglobin 15.9 g/dL (13.0-16.5); Lymphocyte # 1.31 X10^3/ul (0.83-4.51); Mean Corpuscular Hgb 30.8 pg (27.0-32.0); Mean Corpuscular Volume 93.2 fL (80-94); Mean Platelet Vol. 9.3 fl (6.2-12.0); Monocyte# 0.53 X10^3/uL; Monocyte% 7.7 % (0-10); NRBC Flagged by Analyzer 0 % (0-5); Neutrophil # 4.77 X10^3/uL (2.7-7.7); Neutrophil % 69.4 % (47-70); Platelet Count 361 K/mm3 (150-450); RBC Distribution Width CV 12.9 % (11.6-14.6); RBC Distribution Width SD 43.8 fl (35.1-43.9); Red Blood Count 5.17 M/mm3 (4.6-6.2); White Blood Count 6.9 K/mm3 (4.4-11.0)
--- NOTE | 2022-09-27 14:28 | ED.VIS.STROK ---
HPI <JUVENCIO James - Last Filed: 09/27/22 17:36> History of Present Illness Chief Complaint: Neuro S/Sx Narrative Narrative: Patient presenting today with his and friend due to concerns that he is having a TIA or stroke. Patient has a prior history of a TIA. Today at around 1345 he began to have expressive aphashia. reports that they were on their boat and she asked him a question and patient seemed to be confused regarding what she was saying and was not able to answer. He reports that he just was not able to get the words out that he wanted to. He then looked down on his phone and felt like the letters were not where they were supposed to be. He was trying to read street signs on the way here but was unable to make out the words. He reports that the closer he got to the hospital the easier it got to read road signs. He thinks that his symptoms have completely resolved. However, feels that he is still acting like he is out of it. She reports a history of TIA, depression, hyperlipidemia, and anxiety. Patient is supposed to be taking a baby aspirin daily, patient has not taken this for months. Patient's and friend are at bedside. <Dr. Tone Joseph DO - Last Filed: 09/27/22 17:06> Narrative Narrative: Patient presenting today with his and friend due to concerns that he is having a TIA or stroke. Patient has a prior history of a TIA. Today at around 1345 he began to have expressive aphashia. reports that they were on their boat and she asked him a question and patient seemed to be confused regarding what she was saying and was not able to answer. He reports that he just was not able to get the words out that he wanted to. He then looked down on his phone and felt like the letters were not where they were supposed to be. He was trying to read street signs on the way here but was unable to make out the words. He reports that the closer he got to the hospital the easier it got to read road signs. He thinks that his symptoms have completely resolved. However, feels that he is still acting like he is out of it. She reports a history of TIA, depression, hyperlipidemia, and anxiety. Patient is supposed to be taking a baby aspirin daily, patient has not taken this for months. Patient's and friend are at bedside [facility] <JUVENCIO James - Last Filed: 09/27/22 17:36> [facility] Medical History (Updated 09/27/22 @ 15:[address] Tone Joseph, DO) Chronic anxiety Fall Heart murmur High cholesterol Migraine Multiple fractures of ribs of left side Pneumothorax, acute Rib fracture Rib fracture Seasonal allergies TIA (transient ischemic attack) Ulnar neuropathy at elbow of right upper extremity Home Medications aspirin 81 mg tablet,delayed release 81 mg PO DAILY heart health 10/19/18 [History Last Taken 03/12/19] fluticasone propionate 50 mcg/actuation nasal spray,suspension 2 spray intranasal DAILY allergies #54.6 mL 01/21/21 [Rx Last Taken Unknown] cetirizine 10 mg tablet (Zyrtec) 10 mg PO DAILY PRN allergy symptoms 11/26/21 [History Last Taken Unknown] escitalopram oxalate 20 mg tablet 20 mg PO DAILY anxiety #90 tabs 07/08/22 [Rx Last Taken Unknown] rosuvastatin 10 mg tablet (Crestor) 10 mg PO DAILY #90 tabs 07/08/22 [Rx Last Taken Unknown] sildenafil 50 mg tablet 50 mg PO DAILY PRN sexual activity #7 tabs 07/08/22 [Rx Last Taken Unknown] Allergy/AdvReac Type Severity Reaction Status Date / Time grass pollen Allergy Mild congestion Verified 09/27/22 14:33 Family History Mother CVA (cerebral vascular accident) Thyroid disorder Father Heart disease Brother Thyroid disorder Surgical History History of hernia repair Hx of colonoscopy Social History Smoking Status: Never smoker alcohol intake: current alcohol intake frequency: a few times a month Alcohol type: beer and wine substance use type: does not use what type of physical activity do you participate in: none ROS <JUVENCIO James - Last Filed: 09/27/22 17:36> ROS ED Constitutional Constitutional ED: Denies chills or fever(s) Eyes Eyes: Denies blurry vision or diplopia Cardiovascular Cardiovascular: Denies chest pain or palpitations Respiratory/Chest Respiratory/Chest: Denies cough, dyspnea, tachypnea or wheezing Gastrointestinal Gastrointestinal: Denies abdominal pain, constipation, diarrhea, nausea or vomiting Genitourinary Genitourinary ED: Denies dysuria, hematuria or urinary urgency Musculoskeletal Musculoskeletal: Denies arthralgias, back pain, myalgias or neck pain Integumentary Denies abscess, Abrasions or rash Neurologic Neurologic: Denies confusion, dizziness or paresthesias Psychiatric Psychiatric: Denies anxiety, depression, suicidal ideation or suicidal thoughts Allergic/Immunologic Allergic/Immunologic ED: Denies lip swelling, mouth swelling or urticaria EXAM <JUVENCIO James - Last Filed: 09/27/22 17:36> Physical Exam Const Vital Signs: 09/27/22 14:18 09/27/22 14:22 09/27/22 14:29 Temperature 97.9 F 98.2 F Temperature Source Temporal Temporal Pulse Rate 72 81 Respiratory Rate 16 16 Blood Pressure 168/89 H 168/69 H Blood Pressure Mean 115 102 Pulse Ox 99 99 Oxygen Delivery Method Room Air Room Air Room Air 09/27/22 14:45 09/27/22 15:15 09/27/22 15:35 Temperature Temperature Source Pulse Rate 73 70 69 Respiratory Rate 16 16 16 Blood Pressure 132/75 H 159/87 H 157/94 H Blood Pressure Mean 94 111 115 Pulse Ox 97 99 98 Oxygen Delivery Method Room Air Room Air Room Air 09/27/22 15:55 09/27/22 16:00 09/27/22 16:30 Temperature Temperature Source Pulse Rate 67 65 65 Respiratory Rate 16 16 15 Blood Pressure 176/96 H 171/89 H 169/108 H Blood Pressure Mean 122 116 128 Pulse Ox 98 98 98 Oxygen Delivery Method Room Air Room Air Room Air Positive well nourished, well developed and no apparent distress General Appearance ED: well developed HEENT Reports normocephalic and head/scalp atraumatic Mouth ED: Yes moist mucous membranes normal Eyes PERRL and EOMs intact bilaterally Neck full ROM and supple Chest Wall inspection of chest normal Resp normal respiratory effort and clear to auscultation bilaterally Cardio regular rate and regular rhythm GI soft to palpation, non-tender, non-distended and no masses Back/Spine normal ROM and normal to inspection Extremity normal to inspection and full ROM Neuro oriented x3, CN's II-XII intact bilaterally, moves all extremities, no focal motor deficits and no sensory deficits noted Sensorium / Orientation: awake and alert Coordination / Balance: [id number] test normal and [id number] test normal Speech: speech normal Motor Exam: strength 5/5 throughout; Negative for pronator drift Psych mental status grossly normal and thought process normal Skin no rashes or lesions noted and no wounds <Dr. Tone Joseph DO - Last Filed: 09/27/22 17:06> Physical Exam Const Vital Signs: 09/27/22 14:18 09/27/22 14:22 09/27/22 14:29 Temperature 97.9 F 98.2 F Temperature Source Temporal Temporal Pulse Rate 72 81 Respiratory Rate 16 16 Blood Pressure 168/89 H 168/69 H Blood Pressure Mean 115 102 Pulse Ox 99 99 Oxygen Delivery Method Room Air Room Air Room Air 09/27/22 14:45 09/27/22 15:15 09/27/22 15:35 Temperature Temperature Source Pulse Rate 73 70 69 Respiratory Rate 16 16 16 Blood Pressure 132/75 H 159/87 H 157/94 H Blood Pressure Mean 94 111 115 Pulse Ox 97 99 98 Oxygen Delivery Method Room Air Room Air Room Air 09/27/22 15:55 09/27/22 16:00 09/27/22 16:30 Temperature Temperature Source Pulse Rate 67 65 65 Respiratory Rate 16 16 15 Blood Pressure 176/96 H 171/89 H 169/108 H Blood Pressure Mean 122 116 128 Pulse Ox 98 98 98 Oxygen Delivery Method Room Air Room Air Room Air [facility] <Irene Lerma PA - Last Filed: 09/27/22 17:36> [employer] Narrative Medical decision making narrative: Patient presenting today with concerns that he is having a TIA. Around 1:45 PM patient began to have expressive aphasia and was having a difficult time reading words. By the time he arrived here his symptoms had resolved. His NIH is 0. Teleneurologist did evaluate patient and given his history of TIA they felt that patient should be admitted for further work-up. He did take 2 aspirin prior to arrival and is supposed to be taking aspirin daily but has not been taking it like he is supposed to. Around 1534 the nurse told the attending that patient was having mild symptoms again of expressive aphasia and was only able to read 2-3 word phrases but not a sentence. His NIH is now 1. Teleneurologist has been called back and is evaluating patient. 1534 Dr Joseph was called back to bedside, patient is having mild symptoms again of expressive aphasia. Patient is still having headache and some confusion as well. Patient is able to read 2/3 word phrases, but when you start reading sentences, patient is having a harder time. He can see them, but hard time with expressive aphasia. We are having reevaluation from the stroke team. Patient's blood pressure has been slightly elevated, patient's blood pressure has not been over 200s/100s. There was one erroneous elevated blood pressure at 1535, this will be rechecked manually. Critical care time 55 minutes exclusive from separate billable procedures that were performed. The following was considered in the determination of critical care but not limited to the level of medical decision making, intensive cardiac and/or respiratory monitoring, frequent vital sign monitoring, evaluation of laboratory studies, evaluation of radiographic studies, oxygen monitoring, and constant monitoring and speaking to family at bedside. Lab Data Labs: Laboratory Results - last 24 hr 09/27/22 09/27/22 09/27/22 14:19 14:20 14:40 WBC 6.9 RBC 5.17 Hgb 15.9 Hct 48.2 MCV 93.2 MCH 30.8 MCHC 33.0 RDW Std Deviation 43.8 RDW Coeff of Tracee 12.9 Plt Count 361 MPV 9.3 Immature Gran % (Auto) 0.300 Neut % (Auto) 69.4 Lymph % (Auto) 19.0 [place] % (Auto) 7.7 Eos % (Auto) 2.9 Baso % (Auto) 0.7 Absolute Neuts (auto) 4.8 Absolute Lymphs (auto) 1.31 Nucleated RBC % 0 PT 14.0 INR 1.1 APTT 29.4 Sodium 139 Potassium 4.0 Chloride 110 H Carbon Dioxide 23.0 Anion Gap 6 BUN 16 Creatinine 1.46 H Estim Creat Clear Calc 52.46 Est GFR (MDRD) Af Amer 63 Est GFR (MDRD) Non-Af 52 L BUN/Creatinine Ratio 11.0 Glucose 133 H Calcium 8.7 Troponin I High Sens 4 POC Glucose 129 H Radiography Diagnostic Testing: Clinical Impression(s) from Imaging Studies Brain CT 09/27/22 14:18 IMPRESSION: No acute intracranial process identified. Electronically Signed: Fay Palacios MD at 14:40 EDT , ADDENDUM: 09/27/22 1448 IMPRESSION: No acute intracranial process identified. N.B. : The above Results were Read Back by Fay Palacios MD to Tone Joseph DO, and understanding confirmed on 09/27/2022 14:42:47 (ET). Electronically Signed: Fay Palacios MD at 14:40 EDT , Head/Neck CTA 09/27/22 14:19 IMPRESSION: Normal CTA Head and neck with contrast. N.B. : The above Results were Read Back by Joao Garcia MD to Tone Joseph and understanding confirmed on 09/27/2022 15:09:17 (ET). Electronically Signed: Joao Garcia MD at 15:10 EDT , ADDENDUM: 09/27/22 1517 IMPRESSION: Normal CTA Head and neck with contrast. N.B. : The above Results were Read Back by Joao Garcia MD to Tone Joseph and understanding confirmed on 09/27/2022 15:09:17 (ET). Electronically Signed: Joao Garcia MD at 15:10 EDT , Chest X-Ray 09/27/22 16:27 IMPRESSION: Normal x-ray examination of the chest. Electronically Signed: Joao Garcia MD at 17:30 EDT , EKG Initial EKG: Comments: EKG interpretation. Normal sinus rhythm at 73 beats a minute. Left axis deviation. 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 QTc of 462. Artifact noted. EKG reviewed and interpreted by attending ED physician. <Dr. Tone Joseph, DO - Last Filed: 09/27/22 17:06> [employer] Narrative Medical decision making narrative: Patient presenting today with concerns that he is having a TIA. Around 1:45 PM patient began to have expressive aphasia and was having a difficult time reading words. By the time he arrived here his symptoms had resolved. His NIH is 0. Teleneurologist Dr Sharma did evaluate patient and given his history of TIA they felt that patient should be admitted for further work-up. He did take 2 aspirin prior to arrival and is supposed to be taking aspirin daily but has not been taking it like he is supposed to. Around 1535 the nurse told the attending that patient was having mild symptoms again of expressive aphasia and was only able to read 2-3 word phrases but not a sentence. His NIH is now 1. Teleneurologist Dr Sharma has been called back and is evaluating patient. It was recommended to start patient on Plavix 600 mg along with given 1 L of IV fluid. Patient will still be admitted to [facility] with neurology consultation as needed and the recommendation of EEG from Dr Sharma. 153 Dr Joseph was called back to bedside, patient is having mild symptoms again of expressive aphasia. Patient is still having headache and some confusion as well. Patient is able to read 2/3 word phrases, but when you start reading sentences, patient is having a harder time. He can see them, but hard time with expressive aphasia. We are having reevaluation from the stroke team. Patient's blood pressure has been slightly elevated, patient's blood pressure has not been over 200s/100s. There was one erroneous elevated blood pressure at 1535, this will be rechecked manually. I, Dr Joseph, have reviewed the above progress note and course of action in the ER; agree with the above. I have personally seen and evaluated this patient, gone over history and physical, and discussed disposition and treatment plan with the patient. Critical care time 55 minutes exclusive from separate billable procedures that were performed. The following was considered in the determination of critical care but not limited to the level of medical decision making, intensive cardiac and/or respiratory monitoring, frequent vital sign monitoring, evaluation of laboratory studies, evaluation of radiographic studies, oxygen monitoring, and constant monitoring and speaking to family at bedside. Lab Data Attestation: I reviewed the patient's lab results. Labs: Laboratory Results - last 24 hr 09/27/22 09/27/22 09/27/22 14:19 14:20 14:40 WBC 6.9 RBC 5.17 Hgb 15.9 Hct 48.2 MCV 93.2 MCH 30.8 MCHC 33.0 RDW Std Deviation 43.8 RDW Coeff of Tracee 12.9 Plt Count 361 MPV 9.3 Immature Gran % (Auto) 0.300 Neut % (Auto) 69.4 Lymph % (Auto) 19.0 [place] % (Auto) 7.7 Eos % (Auto) 2.9 Baso % (Auto) 0.7 Absolute Neuts (auto) 4.8 Absolute Lymphs (auto) 1.31 Nucleated RBC % 0 PT 14.0 INR 1.1 APTT 29.4 Sodium 139 Potassium 4.0 Chloride 110 H Carbon Dioxide 23.0 Anion Gap 6 BUN 16 Creatinine 1.46 H Estim Creat Clear Calc 52.46 Est GFR (MDRD) Af Amer 63 Est GFR (MDRD) Non-Af 52 L BUN/Creatinine Ratio 11.0 Glucose 133 H Calcium 8.7 Troponin I High Sens 4 POC Glucose 129 H Radiography Diagnostic Testing: Clinical Impression(s) from Imaging Studies Brain CT 09/27/22 14:18 IMPRESSION: No acute intracranial process identified. Electronically Signed: Fay Palacios MD at 14:40 EDT , ADDENDUM: 09/27/22 8012 IMPRESSION: No acute intracranial process identified. N.B. : The above Results were Read Back by Fay Palacios MD to Tone Joseph DO, and understanding confirmed on 09/27/2022 14:42:47 (ET). Electronically Signed: Fay Palacios MD at 14:40 EDT , Head/Neck CTA 09/27/22 14:19 IMPRESSION: Normal CTA Head and neck with contrast. N.B. : The above Results were Read Back by Joao Garcia MD to Tone Joseph and understanding confirmed on 09/27/2022 15:09:17 (ET). Electronically Signed: Joao Garcia MD at 15:10 EDT , ADDENDUM: 09/27/22 1517 IMPRESSION: Normal CTA Head and neck with contrast. N.B. : The above Results were Read Back by Joao Garcia MD to Tone Joseph and understanding confirmed on 09/27/2022 15:09:17 (ET). Electronically Signed: Joao Garcia MD at 15:10 EDT , Chest X-Ray 09/27/22 16:27 IMPRESSION: Normal x-ray examination of the chest. Electronically Signed: Joao Garcia MD at 17:30 EDT , EKG Initial EKG: Comments: EKG interpretation. Normal sinus rhythm at 73 beats a minute. Left axis deviation. 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 QTc of 462. Artifact noted. Discharge Plan Dx/Rx/DC Orders Clinical Impression: Expressive aphasia, Headache Disposition Disposition: Acute Care [facility]
[2022-09-27 14:37] LABS: Bedside Glucose 129 mg/dL (74-106)
[2022-09-27 14:52] LABS: International Normalized Ratio 1.1
[2022-09-27 14:53] LABS: Partial Thromboplast Time 29.4 Seconds (24.1-36.2)
[2022-09-27] MEDS: Aspirin 325 MG Tablet PO (15:18)
[2022-09-27 15:28] LABS: Anion Gap 6 (5-15); BUN 16 mg/dL (7-18); Calcium,Total 8.7 mg/dL (8.5-10.1); Chloride 110 mmol/L (98-107); Creatinine, Serum 1.46 mg/dL (0.70-1.30); EST Glomerular Filtration Rate 52 mL/min (>60); Est Glom Filt Rate - Afr Amer 63 mL/min (>60); Estimated Creatinine Clearance 52.46 ml/min; Glucose 133 mg/dL (74-106); Sodium Level 139 mmol/L (136-145); Troponin-I HS 4 pg/mL (3.0-78.0)
--- NOTE | 2022-09-27 15:37 | ED.RN ---
PT NOTED TO HAVE DIFFICULTY IN CONVERSATION, NIHSS REPEATED, PT NOW HAVING APHASIA, UNABLE TO READ SENTENCES, ABLE TO SPEAK SINGLE WORDS. DR GAVIN NOTIFIED AND AT BEDSIDE. [facility] CALLED BACK AND UPDATED, NEUROLOGIST WILL BEAM IN AGAIN ON TELESTROKE ROBOT.
--- NOTE | 2022-09-27 15:40 | HP.PCM_ITS ---
HPI - General General Date of Service: 09/27/22 Chief Complaint: stroke like symptoms HPI Narrative LORAINE MENENDEZ, is a 62 M with a PMH as outlined who presents via the ED on 09/27/2022 with a complaint of stroke like symptoms. He was out on his boat with his and says he started having expressive aphasia. His last known well was ~ 1345 today, and couldnt get his words out. He also couldnt see hte letters on his phone clearly. He couldnt visualise letters on road signs also on his way to the hospital. His symptoms had resolved by the time he did arrive in the hospital. However, at ~ 3:30pm, he started having headache and his expressive aphasia recurred and couldnt read sentences shown to him. [facility] telestroke had evaluated him when he initially arrived and recommended he be admitted to be worked up for TIA and to also have an EEG. Telestroke was called again after his symptoms recurred. They reviewed him and recommended that he wasnt a candidate for tPA. Vitals in the ED were BP of 157/94, MD of 69, RR of 16 and oxygen sats of 98% on room air. CBC was unremarkable and BMP showed Cr of 1.46 with sodium of 139. CT of the brain showed no acute intracranial pathology. CTA of the head and neck showed no acute pathology. HE is being admitted to be managed for TIA to rule out a stroke. [facility], [facility] Medical History (Updated 09/27/22 @ 15:[address] Tone Joseph, ) Chronic anxiety Fall Heart murmur High cholesterol Migraine Multiple fractures of ribs of left side Pneumothorax, acute Rib fracture Rib fracture Seasonal allergies TIA (transient ischemic attack) Ulnar neuropathy at elbow of right upper extremity Home Medications aspirin 81 mg tablet,delayed release 81 mg PO DAILY heart health 10/19/18 [History Last Taken 03/12/19] fluticasone propionate 50 mcg/actuation nasal spray,suspension 2 spray intranasal DAILY allergies #54.6 mL 01/21/21 [Rx Last Taken Unknown] cetirizine 10 mg tablet (Zyrtec) 10 mg PO DAILY PRN allergy symptoms 11/26/21 [History Last Taken Unknown] escitalopram oxalate 20 mg tablet 20 mg PO DAILY anxiety #90 tabs 07/08/22 [Rx Last Taken Unknown] rosuvastatin 10 mg tablet (Crestor) 10 mg PO DAILY #90 tabs 07/08/22 [Rx Last Taken Unknown] sildenafil 50 mg tablet 50 mg PO DAILY PRN sexual activity #7 tabs 07/08/22 [Rx Last Taken Unknown] Allergy/AdvReac Type Severity Reaction Status Date / Time grass pollen Allergy Mild congestion Verified 09/27/22 14:33 Family History Mother CVA (cerebral vascular accident) Thyroid disorder Father Heart disease Brother Thyroid disorder Surgical History History of hernia repair Hx of colonoscopy Social History Smoking Status: Never smoker alcohol intake: current alcohol intake frequency: a few times a month Alcohol type: beer and wine substance use type: does not use what type of physical activity do you participate in: none ROS Constitutional Constitutional: Denies anorexia, chills, fatigue, fever(s), malaise or weakness Eyes Eyes: Denies blurry vision, change in vision or double vision ENT HEENT: Denies dysphagia, headache(s), hearing loss or sore throat Cardiovascular Cardiovascular: Denies chest pain, edema, orthopnea, palpitations, paroxysmal nocturnal dyspnea or syncope Respiratory/Chest Respiratory/Chest: Denies cough, shortness of breath at rest or shortness of breath with exertion Gastrointestinal Gastrointestinal: Denies abdominal pain, diarrhea, nausea or vomiting Genitourinary Genitourinary: Denies dysuria Musculoskeletal Musculoskeletal: Denies back pain, joint pain, joint swelling, muscle weakness or stiffness Neurologic Neurologic: Denies confusion, dizziness, focal weakness, headache(s), numbness, seizures, tremor(s) or weakness Psychiatric Psychiatric: Reports anxiety; Denies depression Endocrine Endocrinology: Denies change in body appearance Vital Signs Vital Signs Vital Signs: 09/27/22 14:18 09/27/22 14:22 09/27/22 14:29 Temperature 97.9 F 98.2 F Temperature Source Temporal Temporal Pulse Rate 72 81 Respiratory Rate 16 16 Blood Pressure 168/89 H 168/69 H Blood Pressure Mean 115 102 Pulse Ox 99 99 Oxygen Delivery Method Room Air Room Air Room Air 09/27/22 14:45 09/27/22 15:15 09/27/22 15:30 Temperature Temperature Source Pulse Rate 73 70 69 Respiratory Rate 16 16 16 Blood Pressure 132/75 H 159/87 H 157/94 H Blood Pressure Mean 94 111 115 Pulse Ox 97 99 98 Oxygen Delivery Method Room Air Room Air Room Air Weight Weight: 202 lb 9.677 oz Body Mass Index (BMI) 29.9 Physical Exam Const alert, oriented x3 and no apparent distress General Appearance: cooperative HEENT normocephalic, head/scalp atraumatic, moist oral mucous membranes and oropharynx normal Eyes PERRL and EOMs intact bilaterally Neck no lymphadenopathy, supple and no JVD General: trachea midline Lymph Lymphatic: no lymphadenopathy noted and no lymphedema noted Resp normal respiratory effort, normal air movement and clear to auscultation bilaterally Cardio regular rate, regular rhythm, S1 normal heart sound, S2 normal heart sound and no murmurs GI normal to inspection, nondistended, normoactive bowel sounds, soft to palpation, non-tender and non-distended Extremity normal capillary refill, no clubbing, cyanosis or edema and no calf tenderness Skin General Skin Exam: no breakdown and turgor normal Neuro CN's II-XII intact bilaterally, no focal motor deficits and no sensory deficits noted Neuro Narrative: NIHSS is 0 Speech: speech normal Motor Exam: strength 5/5 throughout Psych thought process normal, cooperative and affect normal Appearance: appropriate Results Lab / Micro Data 09/27/22 14:20 09/27/22 14:20 Labs: Laboratory Results - last 24 hr 09/27/22 14:19: POC Glucose 129 H 09/27/22 14:20: WBC 6.9, RBC 5.17, Hgb 15.9, Hct 48.2, MCV 93.2, MCH 30.8, MCHC 33.0, RDW Std Deviation 43.8, RDW Coeff of Tracee 12.9, Plt Count 361, MPV 9.3, Immature Gran % (Auto) 0.300, Neut % (Auto) 69.4, Lymph % (Auto) 19.0, Zapata % (Auto) 7.7, Eos % (Auto) 2.9, Baso % (Auto) 0.7, Absolute Neuts (auto) 4.8, Absolute Lymphs (auto) 1.31, Nucleated RBC % 0, Sodium 139, Potassium 4.0, Chloride 110 H, Carbon Dioxide 23.0, Anion Gap 6, BUN 16, Creatinine 1.46 H, Estim Creat Clear Calc 52.46, Est GFR (MDRD) Af Amer 63, Est GFR (MDRD) Non-Af 52 L, BUN/Creatinine Ratio 11.0, Glucose 133 H, Calcium 8.7, Troponin I High Sens 4 09/27/22 14:40: PT 14.0, INR 1.1, APTT 29.[address] 09/27/22 14:18 IMPRESSION: No acute intracranial process identified. Electronically Signed: Fay Palacios MD at 14:40 EDT , ADDENDUM: 09/27/22 1448 IMPRESSION: No acute intracranial process identified. N.B. : The above Results were Read Back by Fay Palacios MD to Tone Joseph DO, and understanding confirmed on 09/27/2022 14:42:47 (ET). Electronically Signed: Fay Palacios MD at 14:40 EDT , Head/Neck CTA 09/27/22 14:19 IMPRESSION: Normal CTA Head and neck with contrast. N.B. : The above Results were Read Back by Joao Garcia MD to Tone Joseph and understanding confirmed on 09/27/2022 15:09:17 (ET). Electronically Signed: Joao Garcia MD at 15:10 EDT , ADDENDUM: 09/27/22 1517 IMPRESSION: Normal CTA Head and neck with contrast. N.B. : The above Results were Read Back by Joao Garcia MD to Tone Joseph and understanding confirmed on 09/27/2022 15:09:17 (ET). Electronically Signed: Joao Garcia MD at 15:10 EDT , Assessment & Plan Assessment/Plan (1) Expressive aphasia: PLAN: Plan #Stroke like symptoms to rule out a stroke * admit to PCU * had expressive aphasia which has resolved. Had a TIA several years ago also * was supposed to be on aspirin but admits to not being compliant with it * CT of the brain showed no acute intracranial pathology * CTA head and neck showed no hemodynamically significant occlusion * order MRI of the brain and 2D echo tomorrow * PT/OT consult * allow for permissive hypertension in case of a stroke * #Hyperlipidemia: on statin #Depression; on escitalopram DVT prophylaxis: SCDs CODE STATUS: Full code * Patient and counseled extensively about different types of CODE STATUS including full code, DNR CCA and DNR CCA. Patient elects to be full code. Total [id number] time 17 minutes. Charges/Coding Visit Charges Inpatient E&M: 92290 Init Hosp L2 Procedures Hospitalists Procedures: 97836 Advncd Care Plan 30 Min
[2022-09-27] MEDS: Acetaminophen 325 MG Tablet 650 MG PO (15:59)
[2022-09-27] MEDS: Ketorolac 15 MG/ML Vial IV (15:59)
[2022-09-27] MEDS: 0.9% Normal Saline 1,000 ML 999 ML IV (16:03)
[2022-09-27] MEDS: Clopidogrel Bisulfate 300 MG Tablet 600 MG PO (16:05)
--- NOTE | 2022-09-27 16:27 | RAD_ITS ---
STUDY: X-RAY CHEST REASON FOR EXAM: Male, 62 years old. Neuro deficit, acute, stroke suspected TECHNIQUE: Single AP portable view of the chest. COMPARISON: 06/06/2020 FINDINGS: The lungs are clear and expanded. There is no demonstrated pleural abnormality. Normal size heart. Normal mediastinum and matthias. Normal visualized pulmonary arteries. Normal visualized aortic arch and descending thoracic aorta. Normal visualized thoracic spine. Normal visualized ribs, clavicles, and shoulders. There is no demonstrated abnormality of the visualized soft tissue structures of the upper abdomen. RAD/Chest 1 View IMPRESSION: Normal x-ray examination of the chest. Electronically Signed: Joao Garcia MD at 17:30 EDT ,
[2022-09-27] MEDS: 0.9% Normal Saline 1,000 ML 100 ML IV (18:46)
[2022-09-27] MEDS: Atorvastatin Calcium 20 MG Tablet PO (21:50)
[2022-09-28] VITALS (9 sets, daily range): BP systolic 134–162; BP diastolic 74–97; PULSE 64–83; RESP 14–16; TEMP 36.4–37.2; O2SAT 95–99; BMI 28.8
[2022-09-28 05:49] LABS: Absolute Lymphocyte Count 1.32 X10^3/uL (0.83-4.51); Absolute Neutrophil Count 4.5 X10^3/uL (2.0-7.7); Basophil# 0.03 X10^3/uL; Basophil% 0.4 % (0-1); Eosinophil# 0.21 X10^3/uL; Eosinophils% 3.1 % (0-5); Hematocrit 44.3 % (40-54); Hemoglobin 14.6 g/dL (13.0-16.5); Lymphocyte # 1.32 X10^3/ul (0.83-4.51); Lymphocyte % 19.6 % (19-41); Mean Corpuscular Hgb 30.2 pg (27.0-32.0); Mean Corpuscular Volume 91.5 fL (80-94); Mean Platelet Vol. 9.7 fl (6.2-12.0); Monocyte# 0.66 X10^3/uL; Monocyte% 9.8 % (0-10); NRBC Flagged by Analyzer 0 % (0-5); Neutrophil # 4.48 X10^3/uL (2.7-7.7); Neutrophil % 66.7 % (47-70); Platelet Count 364 K/mm3 (150-450); RBC Distribution Width CV 12.8 % (11.6-14.6); RBC Distribution Width SD 42.9 fl (35.1-43.9); Red Blood Count 4.84 M/mm3 (4.6-6.2); White Blood Count 6.7 K/mm3 (4.4-11.0)
[2022-09-28 06:19] LABS: Anion Gap 3 (5-15); BUN 14 mg/dL (7-18); BUN/Creat Ratio 10.1 RATIO (10-20); Calcium,Total 8.2 mg/dL (8.5-10.1); Chloride 110 mmol/L (98-107); Cholesterol 194 mg/dL (200); Creatinine, Serum 1.38 mg/dL (0.70-1.30); EST Glomerular Filtration Rate 55 mL/min (>60); Est Glom Filt Rate - Afr Amer 67 mL/min (>60); Glucose 100 mg/dL (74-106); High Density Lipoprotein 37 mg/dL; Potassium 3.8 mmol/L (3.5-5.1); Sodium Level 139 mmol/L (136-145); Triglycerides 199 mg/dL; Very Low Density Lipoprotein 40 mg/dL (5-40)
--- NOTE | 2022-09-28 07:00 | ECHOCS_ITS ---
Reason For Study: TIA/CVA Procedure This was a 2D Doppler, Color Flow transthoracic echocardiogram. The study was technically difficult. Exam performed portable in patient room. Left Ventricle Normal LV size. Left ventricular systolic function is normal. The estimated ejection fraction is 65 %. Stage 1 diastolic dysfunction. No regional wall motion abnormalities noted. Right Ventricle Normal RV size. Normal systolic function. Atria The left and right atria are normal. Bubble contrast study negative for right to left interatrial shunt. Mitral Valve The mitral valve is structurally normal. No prolapse or stenosis seen. Trivial mitral valve insufficiency. Tricuspid Valve Normal tricuspid valve. Unable to estimate RV systolic pressure due to insufficient tricuspid regurgitant envelope. Aortic Valve Trisinus/trileaflet aortic valve. Pulmonic Valve Normal pulmonic valve. Trivial pulmonic valve insufficiency. Great Vessels Normal aortic root. Pericardium/Pleural No pericardial effusion. Medication Diluted definity 3ml given slow IV push to enhance endocardial definition. Performed a rapid injection of agitated mix of 9 cc saline and 1cc air to assess for atrial septal defect. MMode/2D Measurements & Calculations LVIDd: 4.9 cm IVSd: 0.89 cm Ao root diam: 2.9 cm LVIDs: 3.2 cm LVPWd: 0.77 cm RVDd: 3.7 cm FS: 34.7 % LAV(MOD-bp): 31.3 ml LVAd ap4: 35.5 cm2 SV(MOD-sp4): 82.4 ml LAV(MOD-bp) Indexed: 15.3 ml/m2 LVLd ap4: 8.4 cm LAV(MOD-sp2): 31.7 ml EDV(MOD-sp4): 124.5 ml LAV(MOD-sp4): 30.4 ml EDV(sp4-el): 127.3 ml LVAs ap4: 18.8 cm2 LVLs ap4: 7.3 cm ESV(MOD-sp4): 42.1 ml ESV(sp4-el): 41.0 ml EF(MOD-sp4): 66.2 % EF(sp4-el): 67.8 % SV(sp4-el): 86.3 ml LA A4 area: 13.7 cm2 LA dimension(2D): 2.9 cm RA A4 area: 12.9 cm2 Time Measurements MV dec time: 0.19 sec Doppler Measurements & Calculations MV E max hernando: 75.0 cm/sec Lat Peak E' Hernando: 11.7 cm/sec Med Peak E' Hernando: 11.7 cm/sec MV A max hernando: 65.6 cm/sec E/E' lat: 6.4 E/E' med: 6.4 MV E/A: 1.1 Ao V2 max: 150.1 cm/sec LV V1 max: 122.3 cm/sec PA V2 max: 144.8 cm/sec Ao max P.0 mmHg LV V1 max P.0 mmHg ECHO/Echo Complete W/ Contrast Interpretation Summary The estimated ejection fraction is 65 %. Bubble contrast study negative for right to left interatrial shunt. Ordering Physician: Leonor Zuniga Referring Physician: ALEXIS ZARAGOZA Performed By: Corazon Ortega RDCS
--- NOTE | 2022-09-28 07:32 | NURSING ---
This RN gave updates to charge nurse regarding this pt before leaving unit
[2022-09-28] MEDS: Acetaminophen 325 MG Tablet 650 MG PO ×2 (08:46→18:03)
[2022-09-28] MEDS: Aspirin E.C. 81 MG Tablet PO (08:47)
[2022-09-28] MEDS: Escitalopram Oxalate 20 MG Tablet PO (08:47)
--- NOTE | 2022-09-28 09:00 | MRI_ITS ---
EXAM: MR HEAD WITHOUT INTRAVENOUS CONTRAST CLINICAL INDICATION: TIA TECHNIQUE: Multiplanar and multisequence MR images of the brain were obtained without intravenous contrast. COMPARISON: No relevant prior studies available. FINDINGS: BRAIN AND EXTRA-AXIAL SPACES: Mild decrease T2 signal intensity along the periventricular white matter suggestive of chronic microvascular change. No intra- or extra-axial hemorrhage. No evidence of acute infarct. No intracranial mass or mass effect. There is preservation of the manuel/white matter interface. Posterior fossa structures are unremarkable. No hydrocephalus. Basal cisterns are patent. SELLA: Normal. Normal sella turcica, pituitary gland, infundibular stalk, optic chiasm and hypothalamus. AUDITORY SYSTEM: Normal. The internal auditory canals are patent. BONES/JOINTS: Intact calvarium. SINUSES: Mucus retention cyst noted within the maxillary and ethmoid sinuses. MASTOID AIR CELLS: Unremarkable as visualized. Clear. ORBITS: Unremarkable as visualized. Both globes, extraocular muscles, optic nerves and retrobulbar fat appear unremarkable. VASCULATURE: Unremarkable as visualized. Normal flow voids in the major intracranial circulation. MRI/Brain without Contrast IMPRESSION: No acute intracranial abnormality. Electronically Signed: Rey Cardona MD at 12:02 EDT ,
[2022-09-28 11:56] LABS: Hemoglobin A1c 5.4 % (3.8-5.6)
--- NOTE | 2022-09-28 14:20 | PN_ITS ---
Subjective Subjective Patient seen and examined. He felt much better today and had no complaints. He had an uneventful night and review of systems otherwise negative. He had brain MRI today which was negative for any evidence of stroke. He has remained hemodynamically stable. Objective Data Objective Data Vital Signs: Vital Signs Temp Pulse Resp BP Pulse Ox O2 Del Method 98.9 F 83 16 139/85 H 99 Room Air 09/28/22 08:52 09/28/22 08:52 09/28/22 08:52 09/28/22 08:52 09/28/22 08:52 09/28/22 08:52 Oxygen Delivery Method Room Air Weight: 195 lb 8.8 oz Body Mass Index (BMI) 28.8 Intake & Output: Intake and Output for Last 24 Hours 09/26/22 09/27/22 09/28/22 23:59 23:59 23:59 Intake Total 1200 / 1200 1000 / 1000 Balance 1200 / 1200 1000 / 1000 Lab / Micro Data 09/28/22 04:40 09/28/22 04:40 Labs: Laboratory Results - last 24 hr 09/27/22 14:19: POC Glucose 129 H 09/27/22 14:20: WBC 6.9, RBC 5.17, Hgb 15.9, Hct 48.2, MCV 93.2, MCH 30.8, MCHC 33.0, RDW Std Deviation 43.8, RDW Coeff of Tracee 12.9, Plt Count 361, MPV 9.3, Immature Gran % (Auto) 0.300, Neut % (Auto) 69.4, Lymph % (Auto) 19.0, Carter % (Auto) 7.7, Eos % (Auto) 2.9, Baso % (Auto) 0.7, Absolute Neuts (auto) 4.8, Absolute Lymphs (auto) 1.31, Nucleated RBC % 0, Sodium 139, Potassium 4.0, Chloride 110 H, Carbon Dioxide 23.0, Anion Gap 6, BUN 16, Creatinine 1.46 H, Estim Creat Clear Calc 52.46, Est GFR (MDRD) Af Amer 63, Est GFR (MDRD) Non-Af 52 L, BUN/Creatinine Ratio 11.0, Glucose 133 H, Calcium 8.7, Troponin I High Sens 4 09/27/22 14:40: PT 14.0, INR 1.1, APTT 29.4 09/28/22 04:40: WBC 6.7, RBC 4.84, Hgb 14.6, Hct 44.3, MCV 91.5, MCH 30.2, MCHC 33.0, RDW Std Deviation 42.9, RDW Coeff of Tracee 12.8, Plt Count 364, MPV 9.7, Immature Gran % (Auto) 0.400, Neut % (Auto) 66.7, Lymph % (Auto) 19.6, Carter % (Auto) 9.8, Eos % (Auto) 3.1, Baso % (Auto) 0.4, Absolute Neuts (auto) 4.5, Absolute Lymphs (auto) 1.32, Nucleated RBC % 0, Sodium 139, Potassium 3.8, Chloride 110 H, Carbon Dioxide 26.0, Anion Gap 3 L, BUN 14, Creatinine 1.38 H, Estim Creat Clear Calc 55.50, Est GFR (MDRD) Af Amer 67, Est GFR (MDRD) Non-Af 55 L, BUN/Creatinine Ratio 10.1, Glucose 100, Hemoglobin A1c 5.4, Calcium 8.2 L, Triglycerides 199, Cholesterol 194, LDL Cholesterol 117, VLDL Cholesterol 40, HDL Cholesterol 37 L Radiography Diagnostic Testing: Radiology Impression Brain CT 09/27/22 14:18 IMPRESSION: No acute intracranial process identified. Electronically Signed: Fay Palacios MD at 14:40 EDT , ADDENDUM: 09/27/22 1448 IMPRESSION: No acute intracranial process identified. N.B. : The above Results were Read Back by Fay Palacios MD to Tone Joseph DO, and understanding confirmed on 09/27/2022 14:42:47 (ET). Electronically Signed: Fay Palacios MD at 14:40 EDT , Head/Neck CTA 09/27/22 14:19 IMPRESSION: Normal CTA Head and neck with contrast. N.B. : The above Results were Read Back by Joao Garcia MD to Tone Joseph and understanding confirmed on 09/27/2022 15:09:17 (ET). Electronically Signed: Joao Garcia MD at 15:10 EDT , ADDENDUM: 09/27/22 1517 IMPRESSION: Normal CTA Head and neck with contrast. N.B. : The above Results were Read Back by Joao Garcia MD to Tone Joseph and understanding confirmed on 09/27/2022 15:09:17 (ET). Electronically Signed: Joao Garcia MD at 15:10 EDT , Chest X-Ray 09/27/22 16:27 IMPRESSION: Normal x-ray examination of the chest. Electronically Signed: Joao Garcia MD at 17:30 EDT , Brain MRI 09/28/22 09:00 IMPRESSION: No acute intracranial abnormality. Electronically Signed: Rey Cardona MD at 12:02 EDT , Physical Exam Const alert, oriented x3 and no apparent distress General Appearance: cooperative HEENT normocephalic, head/scalp atraumatic, moist oral mucous membranes and oropharynx normal Eyes PERRL and EOMs intact bilaterally Neck no lymphadenopathy, supple and no JVD General: trachea midline Lymph Lymphatic: no lymphadenopathy noted and no lymphedema noted Resp normal respiratory effort, normal air movement and clear to auscultation bilater ally Cardio regular rate, regular rhythm, S1 normal heart sound, S2 normal heart sound and no murmurs GI normal to inspection, nondistended, normoactive bowel sounds, soft to palpation, non-tender and non-distended Extremity normal capillary refill, no clubbing, cyanosis or edema and no calf tenderness Skin General Skin Exam: no breakdown and turgor normal Neuro CN's II-XII intact bilaterally, no focal motor deficits and no sensory deficits noted Neuro Narrative: NIHSS is 0 Speech: speech normal Motor Exam: strength 5/5 throughout Psych thought process normal, cooperative and affect normal Appearance: appropriate Assessment & Plan Assessment/Plan (1) Expressive aphasia: PLAN: Plan #Stroke like symptoms to rule out a stroke * symptoms havae resolved * MRI of the brain was negative for any evidence of a stroke. Did have a TIA several years ago as well. Has not been compliant with his medication- aspirin * CT of the brain showed no acute intracranial pathology * CTA head and neck showed no hemodynamically significant occlusion * order MRI of the brain and 2D echo tomorrow * PT/OT consult * 2D echo done and read is pending. * EEG ordered as per neuro recommendation * #Hyperlipidemia: on statin #Depression; on escitalopram DVT prophylaxis: SCDs CODE STATUS: Full code * Charges/Coding Visit Charges Inpatient E&M: 15784 Subs Hosp L2
[2022-09-28] MEDS: Atorvastatin Calcium 20 MG Tablet PO (20:22)
--- NOTE | 2022-09-28 20:22 | NURSING ---
Pt requesting HS meds at this time
[2022-09-29 02:00] VITALS: BP 145/92; PULSE 65; RESP 18; TEMP 36.6; O2SAT 95
[2022-09-29 06:00] VITALS: BP 129/76; PULSE 63; RESP 14; TEMP 36.6; O2SAT 95
[2022-09-29 06:06] LABS: Absolute Lymphocyte Count 1.24 X10^3/uL (0.83-4.51); Absolute Neutrophil Count 4.6 X10^3/uL (2.0-7.7); Basophil# 0.03 X10^3/uL; Basophil% 0.4 % (0-1); Eosinophil# 0.23 X10^3/uL; Eosinophils% 3.4 % (0-5); Hematocrit 43.1 % (40-54); Hemoglobin 14.6 g/dL (13.0-16.5); Lymphocyte # 1.24 X10^3/ul (0.83-4.51); Lymphocyte % 18.1 % (19-41); Mean Corp Hgb Conc 33.9 g/dL (32-36); Mean Corpuscular Hgb 29.9 pg (27.0-32.0); Mean Corpuscular Volume 88.3 fL (80-94); Mean Platelet Vol. 9.2 fl (6.2-12.0); Monocyte# 0.73 X10^3/uL; Monocyte% 10.7 % (0-10); NRBC Flagged by Analyzer 0 % (0-5); Neutrophil # 4.61 X10^3/uL (2.7-7.7); Neutrophil % 67.3 % (47-70); Platelet Count 343 K/mm3 (150-450); RBC Distribution Width CV 12.7 % (11.6-14.6); Red Blood Count 4.88 M/mm3 (4.6-6.2); White Blood Count 6.9 K/mm3 (4.4-11.0)
[2022-09-29 06:57] LABS: Anion Gap 5 (5-15); BUN 13 mg/dL (7-18); BUN/Creat Ratio 10.6 RATIO (10-20); Calcium,Total 8.3 mg/dL (8.5-10.1); Chloride 108 mmol/L (98-107); Creatinine, Serum 1.23 mg/dL (0.70-1.30); EST Glomerular Filtration Rate 63 mL/min (>60); Est Glom Filt Rate - Afr Amer 77 mL/min (>60); Estimated Creatinine Clearance 62.27 ml/min; Glucose 105 mg/dL (74-106); Potassium 3.7 mmol/L (3.5-5.1); Sodium Level 140 mmol/L (136-145)
[2022-09-29 07:07] VITALS: O2SAT 93
[2022-09-29 09:48] VITALS: BP 148/81; PULSE 70; RESP 16; TEMP 36.7; O2SAT 96
--- NOTE | 2022-09-29 10:24 | DS.PCM_ITS ---
Providers Date of Admission: 09/27/22 Date of Discharge: 09/29/22 Primary Care Physician: Dr. Alexis Tobar DO Reason For Visit: TIA Diagnosis Discharge Diagnosis (1) Expressive aphasia: Status: Acute Code(s): R47.01 - Aphasia Plan #Stroke like symptoms to rule out a stroke * symptoms havae resolved * MRI of the brain was negative for any evidence of a stroke. Did have a TIA several years ago as well. Has not been compliant with his medication- aspirin * CT of the brain showed no acute intracranial pathology * CTA head and neck showed no hemodynamically significant occlusion * order MRI of the brain and 2D echo tomorrow * PT/OT consult * 2D echo done and read is pending. * EEG ordered as per neuro recommendation * #Hyperlipidemia: on statin #Depression; on escitalopram DVT prophylaxis: SCDs CODE STATUS: Full code * Medications at Discharge Home Medications fluticasone propionate 50 mcg/actuation nasal spray,suspension 2 spray intranasal DAILY allergies #54.6 mL 01/21/21 cetirizine 10 mg tablet (Zyrtec) 10 mg PO DAILY PRN allergy symptoms 11/26/21 escitalopram oxalate 20 mg tablet 20 mg PO DAILY anxiety #90 tabs 07/08/22 rosuvastatin 10 mg tablet (Crestor) 10 mg PO DAILY #90 tabs 07/08/22 sildenafil 50 mg tablet 50 mg PO DAILY PRN sexual activity #7 tabs 07/08/22 aspirin 81 mg tablet,delayed release 81 mg PO DAILY heart health #30 tabs 09/29/22 Hospital Course Operations None Procedures 2-D Echocardiogram Summary of Care Provided Minutes Spent on Discharge: 45 Hospital Course: LORAINE MENENDEZ, is a 62 M with a PMH as outlined who presents via the ED on 09/27/2022 with a complaint of stroke like symptoms. He was out on his boat with his and says he started having expressive aphasia. His last known well was ~ 1345 today, and couldnt get his words out. He also couldnt see hte letters on his phone clearly. He couldnt visualise letters on road signs also on his way to the hospital. His symptoms had resolved by the time he did arrive in the hospital. However, at ~ 3:30pm, he started having headache and his expressive aphasia recurred and couldnt read sentences shown to him. [facility] telestroke had evaluated him when he initially arrived and recommended he be admitted to be worked up for TIA and to also have an EEG. Telestroke was called again after his symptoms recurred. They reviewed him and recommended that he wasnt a candidate for tPA. Vitals in the ED were BP of 157/94, OR of 69, RR of 16 and oxygen sats of 98% on room air. CBC was unremarkable and BMP showed Cr of 1.46 with sodium of 139. CT of the brain showed no acute intracranial pathology. CTA of the head and neck showed no acute pathology. HE was admitted to be managed for TIA to rule out a stroke. He had an MRI of the brain which showed no evidence of a stroke. 2D echo showed EF of 65% and bubble study was negative for any right to left interatrial shunt. Neurology recommended ask for an EEG which showed no evidence of seizures. Neurology reviewed and recommended that he will be compliant with his aspirin but had no other recommendations. He is to follow-up with his primary care doctor was referred to outpatient neurology to establish neurology care. Patient was seen and examined prior to discharge. He had no complaints and had an uneventful night. Review of systems otherwise negative. Labs and vitals reviewed. Home medications reviewed and reconciled. Physical Exam Const alert, oriented x3 and no apparent distress General Appearance: cooperative, comfortable and well kempt HEENT normocephalic, head/scalp atraumatic, hearing grossly normal bilaterally, moist oral mucous membranes and oropharynx normal Mouth: oral and palatal mucosa normal Eyes PERRL, EOMs intact bilaterally and conjunctivae normal Neck no lymphadenopathy, supple and no JVD General: trachea midline Lymph Lymphatic: no lymphadenopathy noted and no lymphedema noted Resp normal respiratory effort, normal air movement and clear to auscultation bilaterally Cardio regular rate, regular rhythm, S1 normal heart sound, S2 normal heart sound and no murmurs GI normal to inspection, nondistended, normoactive bowel sounds, soft to palpation, non-tender and non-distended Extremity normal to inspection, full ROM, normal capillary refill, no clubbing, cyanosis or edema and no calf tenderness Skin no rashes or lesions noted and no wounds General Skin Exam: no breakdown and turgor normal Neuro oriented x3, CN's II-XII intact bilaterally, moves all extremities, no focal motor deficits and no sensory deficits noted Neuro Narrative: NIHSS is 0 Speech: speech normal Motor Exam: strength 5/5 throughout Psych thought process normal, cooperative and affect normal Appearance: appropriate Weight / BMI Weight Weight: 195 lb 8.8 oz Body Mass Index (BMI) 28.8 ABG / Lab / Microbiology Data 09/29/22 05:41 09/29/22 05:41 Laboratory: Laboratory Results - last 24 hr 09/28/22 04:40: Hemoglobin A1c 5.4 09/29/22 05:41: WBC 6.9, RBC 4.88, Hgb 14.6, Hct 43.1, MCV 88.3, MCH 29.9, MCHC 33.9, RDW Std Deviation 41.0, RDW Coeff of Tracee 12.7, Plt Count 343, MPV 9.2, Immature Gran % (Auto) 0.100, Neut % (Auto) 67.3, Lymph % (Auto) 18.1 L, [place] % (Auto) 10.7 H, Eos % (Auto) 3.4, Baso % (Auto) 0.4, Absolute Neuts (auto) 4.6, Absolute Lymphs (auto) 1.24, Nucleated RBC % 0, Sodium 140, Potassium 3.7, Chloride 108 H, Carbon Dioxide 27.0, Anion Gap 5, BUN 13, Creatinine 1.23, Estim Creat Clear Calc 62.27, Est GFR (MDRD) Af Amer 77, Est GFR (MDRD) Non-Af 63, BUN/Creatinine Ratio 10.6, Glucose 105, Calcium 8.3 L Radiography Diagnostic Testing: Radiology Impression Echocardiogram 09/28/22 07:00 Interpretation Summary The estimated ejection fraction is 65 %. Bubble contrast study negative for right to left interatrial shunt. Ordering Physician: Leonor Zuniga Referring Physician: ALEXIS TOBAR Performed By: Corazon Ortega RDCS Brain MRI 09/28/22 09:00 IMPRESSION: No acute intracranial abnormality. Electronically Signed: Rey Cardona MD at 12:02 EDT Reading Location ID and State: [address] [place] [address] Tel , Service support , D/C Instructions Discharge Diet: Low fat / Low cholesterol Weight Bearing Status: Weight bearing as tolerated Call your doctor if you observe: Fever of 101 or Higher, Shortness of breath, Dizziness, Swelling in the ankles, Chest pain and Increased palpitations (irregular heartbeat) Meaningful Use Info Meaningful Use Diagnoses (Choose all that apply): None applicable Discharge Plan Admission Admit Date/Time: 09/27/22 16:58 Primary Reason for Your Visit: TIA Attending Provider: Leonor Zuniga Primary Care Provider: Alexis Tobar Instructions Patient Instructions: TIA Dc Discharge Orders/Prescriptions Prescriptions: Continued fluticasone propionate 50 mcg/actuation spray,suspension 2 spray INTRANASAL DAILY Qty: 54.6 3RF Rx Instructions: administer into each nostril cetirizine [Zyrtec] 10 mg tablet 10 mg PO DAILY PRN (Reason: allergy symptoms) escitalopram oxalate 20 mg tablet 20 mg PO DAILY Qty: 90 1RF rosuvastatin [Crestor] 10 mg tablet 10 mg PO DAILY Qty: 90 1RF sildenafil 50 mg tablet 50 mg PO DAILY PRN (Reason: sexual activity) Qty: 7 3RF Rx Instructions: administer 30 minutes to 4 hours before activity aspirin 81 mg tablet,delayed release (DR/EC) 81 mg PO DAILY Qty: 30 2RF Referrals / Follow Up: Alexis Tobar DO [Primary Care Provider] - Within 1 Week Dominic Abdi MD [Non-Staff -Ordering Privileges] - Within 2 Weeks (see to establish outpatient neurology care) Disposition Disposition (needs filled in before D/C Order can be placed): Home, Self Care Charges/Coding Visit Charges Inpatient E&M: 18969 Disch Hosp >30min
--- NOTE | 2022-09-29 10:30 | PHA.DC.MR.R ---
Pharmacy ID Med Reconciliation Pharmacy Service has performed discharge medication reconciliation for this patient. The patient's discharge medication list was reviewed for discrepancies and discrepancies were resolved. Medications at Discharge Home Medications fluticasone propionate 50 mcg/actuation nasal spray,suspension 2 spray intranasal DAILY allergies #54.6 mL 01/21/21 cetirizine 10 mg tablet (Zyrtec) 10 mg PO DAILY PRN allergy symptoms 11/26/21 escitalopram oxalate 20 mg tablet 20 mg PO DAILY anxiety #90 tabs 07/08/22 rosuvastatin 10 mg tablet (Crestor) 10 mg PO DAILY #90 tabs 07/08/22 sildenafil 50 mg tablet 50 mg PO DAILY PRN sexual activity #7 tabs 07/08/22 aspirin 81 mg tablet,delayed release 81 mg PO DAILY heart health #30 tabs 09/29/22
[2022-09-29] MEDS: Aspirin E.C. 81 MG Tablet PO (10:36)
[2022-09-29] MEDS: Escitalopram Oxalate 20 MG Tablet PO (10:36)
[2022-09-29 11:55] VITALS: BMI 28.8
[2022-09-29 14:43] VITALS: BP 130/81; PULSE 69; RESP 16; TEMP 36.7; O2SAT 96
--- NOTE | 2022-09-29 16:56 | NURSING ---
Reviewed charting with Scarlett Liao RN
== END 2022-09-29 10:24 | disposition home or self-care (01) ==
LOC: ED 15:43 → PCU 17:23
PROVIDERS: Admitting Provider Student in an Organized Health Care Education/Training Program; Emergency Provider Emergency Medicine; PCP Family Medicine; Visit Provider Student in an Organized Health Care Education/Training Program
DX: R47.01 Aphasia (principal); E78.00 Pure hypercholesterolemia, unspecified; R41.0 Disorientation, unspecified; R51.9 Headache, unspecified; Z79.899 Other long term (current) drug therapy; F41.9 Anxiety disorder, unspecified; F32.A Depression, unspecified; Z86.73 Personal history of transient ischemic attack (TIA), and cerebral infarction without residual deficits; I08.1 Rheumatic disorders of both mitral and tricuspid valves
CPT/HCPCS: 36415; 70450; 70496; 70498; 70551; 71045; 80048; 80061; 82962; 83036; 84484; 85025; 85610; 85730; 93005; 93306; 94762; 95819; 96361; 96374; 97162; 97165; 99221; 99285; J7030; Q9957; Q9967; A4216; C8929; G0378

== ENCOUNTER → 2022-10-27 | Outpatient (CLI) | payer OTHER, SELFPAY ==
--- NOTE | 2022-10-27 15:41 | CT_ITS ---
INDICATION: right groin pain EXAMINATION: CT PELVIS WITH CONTRAST TECHNIQUE: Helically acquired images were obtained of the pelvis with sagittal and coronal reconstructed images. Individualized dose optimization techniques were used for this CT. IV contrast dosage and agent: 100 mL of Isovue 300. Oral contrast: Contrast seen in the partially visualized small bowel and colon. COMPARISON: 03/13/2019 CT. FINDINGS: URINARY BLADDER: Unremarkable. BOWEL: Diverticulosis with no evidence of diverticulitis. REPRODUCTIVE ORGANS: No evidence of a pelvic mass. PERITONEUM: No intraabdominal free fluid or free air in the pelvis. LYMPH NODES: No pathologically enlarged mesenteric or retroperitoneal lymph nodes. ABDOMINAL WALL: Small fat-containing left inguinal hernia with no acute associated findings. No right inguinal hernia. BONES: No acute abnormality. Stable bilateral L5 spondylolysis with grade 2 anterior spondylolisthesis of L5 on S1. Degenerative changes of the pubic symphysis. SOFT TISSUES: Unremarkable. Partially visualized lower kidneys demonstrate multiple simple appearing cysts with no follow-up recommended. CT/Pelvis WITH IV Contrast IMPRESSION: 1. No evidence of an abnormality in the right inguinal region. 2. Fat-containing left inguinal hernia with no acute associated findings. Electronically Signed: Tone Cordero DO at 2:20 EDT ,
== END | disposition home or self-care (01) ==
LOC: CT 15:39
PROVIDERS: PCP Family Medicine; Referring Provider Internal Medicine; Visit Provider Internal Medicine
DX: R10.31 Right lower quadrant pain (principal)
CPT/HCPCS: 72193; Q9967

== ENCOUNTER → 2022-12-11 | Outpatient (CLI) | payer BC, SELFPAY ==
--- NOTE | 2022-12-11 14:42 | RAD_ITS ---
STUDY: X-RAY - PELVIS AND RIGHT HIP REASON FOR EXAM: Male, 62 years old. right groin pain TECHNIQUE: 3 views of the pelvis and hip. COMPARISON: None. FINDINGS: There is a non-specific bowel gas pattern. Normal visualized soft tissue structures. Normal bilateral iliac wings, sacroiliac joints and visualized sacrum. Normal bilateral superior and inferior pubic rami. Normal pubic symphysis. Normal bilateral ischial tuberosities. Normal visualized femoral head. Normal acetabulum. Normal hip joint. RAD/HIP, UNI W/ Pelvis 2-3 Views IMPRESSION: Normal x-ray examination of the pelvis and hip. Electronically Signed: Rai Recio MD at 22:14 EDT ,
== END | disposition home or self-care (01) ==
PROVIDERS: PCP Family Medicine; Referring Provider Internal Medicine; Visit Provider Internal Medicine
DX: R10.31 Right lower quadrant pain (principal)
CPT/HCPCS: 73502

== ENCOUNTER → 2024-05-03 | Outpatient (CLI) | payer BC, SELFPAY ==
[2024-05-03 20:25] LABS: ALB/GLOB Ratio 1.4 RATIO (0.9-2.4); AST(SGOT) 31 U/L (<=37); Alanine Aminotransfer ALT/SGPT 33 U/L (<=46); Albumin, Serum 4.8 g/dL (3.4-4.8); Alkaline Phosphatase 58 U/L (40-129); Anion Gap 12 (5-15); BUN 16 mg/dL (4-19); BUN/Creat Ratio 12.8 RATIO (10-20); Calcium,Total 9.9 mg/dL (7.6-11.0); Carbon Dioxide 24.2 mmol/L (21.0-32.0); Chloride 104 mmol/L (98-108); Creatinine, Serum 1.23 mg/dL (0.70-1.20); EST Glomerular Filtration Rate 66 (>60); Globulin 3.3 g/dL (2.2-4.2); Glucose 99 mg/dL (70-99); PSA,Total - Annual Screen 0.38 ng/mL (0.02-4.00); Potassium 4.9 mmol/L (3.3-5.1); Protein, Total 8.1 g/dL (5.9-8.4); Sodium Level 140 mmol/L (133-145); Total Bilirubin 0.54 mg/dL (0.00-1.30)
[2024-05-03 20:36] LABS: Cholesterol 154 mg/dL (<=200); High Density Lipoprotein 50 mg/dL; Low Density Lipoprotein Calc. 79 mg/dL; Triglycerides 126 mg/dL; Very Low Density Lipoprotein 25 mg/dL (5-40); cholesterol:hdl ratio screen 3.07
== END | disposition home or self-care (01) ==
LOC: BIMLAB 12:08
PROVIDERS: PCP Family Medicine; Referring Provider Family Medicine; Visit Provider Family Medicine
DX: E78.00 Pure hypercholesterolemia, unspecified (principal)
CPT/HCPCS: 36415; 80053; 80061; 84153; G0103

== ENCOUNTER → 2025-01-19 | Outpatient (CLI) | payer OTHER, SELFPAY ==
--- OUTSIDE RECORDS SUMMARY | 2025-01-19 08:35 | XMS RPT_ITS | CCD ---
Author Organization [facility] Care Team Providers Care Manager Account Management Name Role Phone LASHAWN EMANUEL Unavailable Unavailable Dr. Edvin Tobar Primary Care Provider [phone] Dr. Edvin Tobar Attending Provider [phone] Dr. Edvin Tobar Referring Provider [phone] Dr. Edvin Tobar Primary Care Provider [phone] Dr. Edvin Tobar Attending Provider [phone] Dr. Edvin Tobar Referring Provider [phone] Joan Mora Attending Provider Dr. Tone Joseph Emergency Provider [place], Dr. Leonor Gomez Admit Provider [place], Dr. Leonor Gomez Attending Provider [place], Dr. Leonor Gomez Other Provider Dr. Edvin Tobar Primary Care Provider Dr. Joan Mora Attending Provider [place], Dr. Leonor Gomez Referring Provider Dr. Tone Joseph Emergency Provider [place], Dr. Leonor Gomez Admit Provider [place], Dr. Leonor Gomez Attending Provider [place], Dr. Leonor Gomez Other Provider Dr. Edvin Tobar Referring Provider [phone] Dr. Cara Mehta Attending Provider [phone] Dr. Edvin Tobar Attending Provider [phone] Edvin Tobar DO Primary Care Provider [phone] Amadou LI, Dr. Edvin Henderson Attending Provider [phone] Dr. Edvin Tobar DO Referring Provider Moody Vincent Attending Unavailable Brown, Edvin R Referring Unavailable Brown, Edvin R Primary Care Unavailable Brown, Edvin R Attending Unavailable Brown, Edvin R Referring Unavailable Brown, Edvin R Primary Care Unavailable Brown, Devin R Attending Unavailable Brown, Edvin R Referring Unavailable Brown, Edvin R Primary Care Unavailable Brown, Edvin R Attending Unavailable Brown, Edvin R Referring Unavailable Brown, Edvin R Primary Care Unavailable Brown, Edvin R Attending Unavailable Brown, Edvin R Referring Unavailable Brown, Edvin R Primary Care Unavailable Allergies Allergy Classification Reported Allergen(s) Allergy Type Date of Onset Reaction(s) Facility (6 sources) Grass pollen; Translations: [grass pollen] Allergy to substance 04-16-2022 [facility] Medications Current Medications Medication Drug Class(es) Dates Sig (Normalized) Sig (Original) aspirin 325 mg delayed release oral tablet (10 sources) Platelet Aggregation Inhibitor, Nonsteroidal Anti-inflammatory Drug Start: 10-05-2022 take 1 tablet by mouth once daily Aspirin 325 mg tablet,delayed release (DR/EC) Active 325 mg PO DAILY October 05, 2022 2:06pm Start: 10-19-2018 End: 10-05-2022 take 1 tablet by mouth once daily Aspirin 81 mg tablet,delayed release (DR/EC) Discontinued 81 mg PO DAILY September 29, 2022 10:22am October 05, 2022 2:29pm escitalopram 20 mg oral tablet (20 sources) Serotonin Reuptake Inhibitor Start: 04-01-2020 End: 05-02-2024 take 1 tablet by mouth once daily Escitalopram Oxalate 20 mg tablet Active 20 mg PO DAILY May 02, 2024 8:37am Start: 03-27-2020 End: 04-01-2020 take 10 mg by mouth once daily Escitalopram Oxalate 20 mg tablet Discontinued 10 mg PO DAILY March 27, 2020 9:45am April 01, 2020 9:53am Start: 03-27-2020 End: 04-01-2020 take 10 mg by mouth once daily Escitalopram Oxalate Di scontinued 10 MG PO DAILY March 27, 2020 8:45am April 01, 2020 8:53am Start: 01-11-2018 End: 03-27-2020 take 1 tablet by mouth once daily Escitalopram Oxalate 10 mg tablet Discontinued 10 mg PO DAILY 90 April 26, 2019 9:29pm March 27, 2020 9:53am fluticasone propionate 0.05 mg/actuat metered dose nasal spray (20 sources) Corticosteroid Start: 12-09-2022 End: 09-22-2023 Fluticasone Propionate 50 mcg/actuation spray,suspension Active 2 NMA INTRANASAL DAILY 54.6 September 22, 2023 3:11pm administer into each nostril Start: 12-09-2022 take 1 spray(s) nasa l route once daily Fluticasone Propionate Active 2 SPRAY INTRANASAL DAILY 54.6 December 09, 2022 1:51pm administer into each nostril Start: 09-21-2019 End: 10-05-2022 Fluticasone Propionate 50 mcg/actuation spray,suspension Discontinued 2 NMA INTRANASAL DAILY 54.6 January 21, 2021 11:47am October 05, 2022 1:46pm administer into each nostril Start: 03-13-2019 End: 09-21-2019 Fluticasone Propionate 16 GM spray,suspension Discontinued 2 NMA INTRANASAL DAILY March 13, 2019 3:14pm September 21, 2019 4:39pm administer into each nostril Start: 01-11-2018 End: 01-11-2018 Fluticasone Propionate 50 mcg/actuation blister with device Discontinued 1 NMA INHALATION DAILY January 11, 2018 1:00am January 11, 2018 12:05pm Start: 01-11-2018 End: 03-13-2019 take 50 ug nasal route once daily Fluticasone Propionate (Flonase Allergy Relief) 50 mcg/actuation spray,suspension Discontinued 2 NMA Intranasal DAILY 47.4 January 11, 2018 1:00am March 13, 2019 3:14pm administer into each nostril Start: 01-11-2018 End: 01-11-2018 Fluticasone Propionate Disco ntinued 1 INH INHALATION DAILY January 11, 2018 12:00am January 11, 2018 11:05am Start: 01-11-2018 End: 10-05-2022 take 1 spray(s) nasal route once daily Fluticasone Propionate Discontinued 2 SPRAY INTRANASAL DAILY March 13, 2019 2:14pm September 21, 2019 3:39pm administer into each nostril rosuvastatin calcium 10 mg oral tablet (13 sources) HMG-CoA Reductase Inhibitor Start: 05-29-2021 End: 09-22-2023 take 1 tablet by mouth once daily Rosuvastatin 10 mg tablet Active 10 mg PO DAILY September 22, 2023 3:11pm sildenafil 50 mg oral tablet (4 sources) Phosphodiesterase 5 Inhibitor Start: 07-08-2022 Sildenafil 50 mg tablet Active 50 mg PO DAILY as needed for sexual activity July 08, 2022 12:00am administer 30 minutes to 4 hours before activity Completed/Discontinued Medications Medication Drug Class(es) Dates Sig (Normalized) Sig (Original) acetaminophen 325 mg oral tablet (5 sources) Start: 03-30-2019 End: 09-27-2022 take 1-10 tablets by mouth every six hours as needed for pain Acetaminophen (Tylenol) 325 mg tablet Discontinued 325 mg PO EVERY 6 HOURS as needed for Pain 1-10 Or Fever March 30, 2019 1:00am September 27, 2022 2:33pm amoxicillin 875 mg / clavulanate 125 mg oral tablet (5 sources) Penicillin-class Antibacterial Start: 01-21-2021 End: 05-28-2021 Amoxicillin-Pot Clavulanate (Augmentin) 875-125 mg tablet Discontinued 1 {tbl} PO TWICE A DAY January 21, 2021 1:00am May 28, 2021 1:10pm cephalexin 750 mg oral capsule (5 sources) Cephalosporin Antibacterial Start: 06-07-2020 End: 10-02-2020 take 1 capsule by mouth twice daily Cephalexin (Keflex) 750 mg capsule Discontinued 750 mg PO TWICE A DAY 21 08June 07, 2020 12:00am October 02, 2020 4:29pm cetirizine hydrochloride 10 mg oral tablet (5 sources) Histamine-1 Receptor Antagonist Start: 11-26-2021 End: 10-05-2022 take 1 tablet by mouth once daily as needed Cetirizine (Zyrtec) 10 mg tablet Discontinued 10 mg PO DAILY as needed for allergy symptoms November 26, 2021 12:00am October 05, 2022 1:46pm clobetasol propionate 0.5 mg/ml medicated shampoo (5 sources) Corticosteroid Start: 11-26-2021 End: 12-10-2021 Clobetasol 0.05 % shampoo Discontinued 1 NMA TOPICAL DAILY 118 November 26, 2021 12:00am December 09, 2021 12:00am December 10, 2021 12:03am gabapentin 100 mg oral capsule (5 sources) Anti-epileptic Agent Start: 08-18-2019 End: 09-20-2019 take 2 capsules by mouth twice daily Gabapentin 100 mg capsule Discontinued 200 mg PO TWICE A DAY 60 August 18, 2019 12:00am September 20, 2019 4:38pm Start: 08-18-2019 End: 09-20-2019 take 200 mg by mouth twice daily Gabapentin Discontinued 200 MG PO TWICE A DAY 60 August 17, 2019 11:00pm September 20, 2019 3:38pm 12 hr guaiFENesin 1200 mg extended release oral tablet (5 sources) Start: 03-10-2017 End: 10-07-2017 take 1 tablet by mouth every twelve hours, then take 1 tablet by mouth every twelve hours Guaifenesin (Mucinex) 1,200 mg tablet extended release 12hr Discontinued 1200 mg PO Q12H March 10, 2017 1:00am October 07, 2017 3:22pm ibuprofen 200 mg oral capsule (5 sources) Nonsteroidal Anti-inflammatory Drug Start: 03-30-2019 End: 09-27-2022 take 1 capsule by mouth every six hours as needed Ibuprofen (Motrin Ib) 200 mg capsule Discontinued 200 mg PO EVERY 6 HOURS as needed for Pain 1-10 Or Fever March 30, 2019 1:00am September 27, 2022 2:33pm levoFLOXacin 750 mg oral tablet (5 sources) Quinolone Antimicrobial Start: 03-10-2017 End: 03-17-2017 take 1 tablet by mouth every twenty-four hours Levofloxacin 750 mg tablet Discontinued 750 mg PO Q24H 7 7 March 10, 2017 1:00am March 16, 2017 1:00am March 17, 2017 1:05am loratadine 10 mg oral tablet (5 sources) Start: 10-07-2017 End: 11-26-2021 take 1 tablet by mouth once daily as needed Loratadine (Claritin) 10 mg tablet Discontinued 10 mg PO DAILY NEEDED as needed for Allergies October 07, 2017 12:00am November 26, 2021 10:15am montelukast 10 mg oral tablet (5 sources) Leukotriene Receptor Antagonist Start: 01-10-2017 End: 10-07-2017 take 1 tablet by mouth once daily Montelukast 10 MG tablet Discontinued 10 mg PO DAILY January 10, 2017 1:00am October 07, 2017 3:22pm omeprazole 40 mg delayed release oral capsule (5 sources) Proton Pump Inhibitor Start: 04-12-2020 End: 09-27-2022 take 1 capsule by mouth once daily Omeprazole 40 MG capsule,delayed release(DR/EC) Discontinued 40 mg PO DAILY 60 April 12, 2020 1:00am September 27, 2022 2:34pm oxyCODONE hydrochloride 5 mg oral tablet (5 sources) Opioid Agonist Start: 03-14-2019 End: 03-18-2019 take 1 tablet by mouth every six hours as needed for pain Oxycodone 5 MG tablet Discontinued 5 mg PO EVERY 6 HOURS NEEDED as needed for Pain Score 6-10/10 12 4 March 14, 2019 March 17, 2019 1:00am March 18, 2019 1:09am sucralfate 1000 mg oral tablet (5 sources) Aluminum Complex Start: 04-12-2020 End: 04-27-2020 take 1 tablet by mouth four times daily Sucralfate 1 GM tablet Discontinued 1 g PO 4 TIMES DAILY 60 15 April 12, 2020 1:00am April 26, 2020 12:00am April 27, 2020 12:04am valACYclovir 1000 mg oral tablet (5 sources) Herpesvirus Nucleoside Analog DNA Polymerase Inhibitor, Herpes Simplex Virus Nucleoside Analog DNA Polymerase Inhibitor, Herpes Zoster Virus Nucleoside Analog DNA Polymerase Inhibitor Start: 08-18-2019 End: 09-20-2019 Valacyclovir 1 gram tablet Discontinued 1000 mg PO THREE TIMES A DAY August 18, 2019 12:00am September 20, 2019 4:38pm Start: 08-18-2019 End: 09-20-2019 take 1000 mg by mouth three times daily Valacyclovir Discontinued 1000 MG PO THREE TIMES A DAY August 17, 2019 11:00pm September 20, 2019 3:38pm Problems Active Problems Problem Classification Problem Date Documented Da te Episodic/Chronic Abdominal pain (1 source) Right lower quadrant pain; Translations: [Abdominal pain, right lower quadrant] 10-05-2022 Episodic Anxiety disorders (8 sources) Chronic anxiety; Translations: [Anxiety disorder, unspecified] 04-01-2020 Chronic Disorders of lipid metabolism (9 sources) Hypercholesterolemia ; Translations: [Pure hypercholesterolemia , unspecified] Onset: 05-08-2024 02-22-2018 Chronic E Codes: Fall (5 sources) Fall; Translations: [Unspecified fall, initial encounter] 04-01-2020 Episodic Fever of unknown origin (5 sources) Fever; Translations: [Fever, unspecified] 06-08-2020 Episodic Headache; including migraine (10 sources) Migraine; Translations: [Migraine, unspecified, not intractable, without status migrainosus] 04-01-2020 Chronic Headache; including migraine (5 sources) Headache; Translations: [Headache] 09-27-2022 Episodic Heart valve disorders (5 sources) Heart murmur; Translations: [Cardiac murmur, unspecified] 02-22-2018 Episodic Lymphadenitis (5 sources) Acute lymphadenitis; Translations: [Acute lymphadenitis, unspecified] 06-08-2020 Episodic Mood disorders (9 sources) Depressive disorder; Translations: [Depression] Onset: 09-23-2023 10-02-2020 Chronic Other aftercare (1 source) Encounter for follow-up examination after completed treatment for conditions other than malignant neoplasm; Translations: [Other follow-up examination] 10-05-2022 Episodic Other connective tissue disease (2 sources) Iliotibial band friction syndrome; Translations: [Iliotibial band syndrome, right leg] 12-09-2022 Episodic Other connective tissue disease (1 source) Iliotibial band syndrome, right leg; Translations: [Other disorders of muscle, ligament, and fascia] 12-09-2022 Episodic Other connective tissue disease (1 source) Bursitis of olecranon of right elbow; Translations: [Olecranon bursitis, right elbow] 09-09-2023 Episodic Other fractures (5 sources) Fracture of multiple ribs ; Translations: [Multiple fractures of ribs, left side, initial encounter for closed fracture] 04-01-2020 Episodic Other fractures (10 sources) Fracture of rib; Translations: [Fracture of one rib, unspecified side, initial encounter for closed fracture] 04-01-2020 Episodic Other gastrointestinal disorders (5 sources) Dysphagia; Translations: [Dysphagia, unspecified] 04-16-2022 Episodic Other gastrointestinal disorders (3 sources) Dysphagia, unspecified; Translations: [Dysphagia, unspecified] 04-16-2022 Episodic Other lower respiratory disease (5 sources) Local cyanosis; Translations: [Cyanosis] 01-04-2018 Episodic Other male genital disorders (7 sources) Male erectile dysfunction, unspecified; Translations: [Erectile dysfunction] Onset: 09-23-2023 07-08-2022 Chronic Other nervous system disorders (4 sources) Ulnar neuropathy; Translations: [Lesion of ulnar nerve, right upper limb] 04-01-2020 Chronic Other nervous system disorders (3 sources) Expressive dysphasia; Translations: [Aphasia] 09-29-2022 Chronic Other nervous system disorders (3 sources) Aphasia; Translations: [Aphasia] 09-29-2022 Chronic Other nervous system disorders (1 source) Lesion of ulnar nerve, right upper limb; Translations: [Ulnar neuropathy at elbow of right upper extremity] 04-01-2020 Chronic Other skin disorders (5 sources) Facial swelling ; Translations: [Localized swelling, mass and lump, head] 06-10-2020 Episodic Other upper respiratory disease (5 sources) Seasonal allergy; Translations: [Other seasonal allergic rhinitis] 03-13-2019 Chronic Other upper respiratory disease (5 sources) Bleeding from nose; Translations: [Epistaxis] 05-28-2021 Episodic Pleurisy; pneumothorax; pulmonary collapse (5 sources) Acute pneumothorax; Translations: [Other pneumothorax] 04-01-2020 Episodic Pneumonia (except that caused by tuberculosis or sexually transmitted disease) (5 sources) Right lower zone pneumonia; Translations: [Pneumonia, unspecified organism] 01-04-2018 Episodic Residual codes; unclassified (5 sources) History of colonoscopy; Translations: [Other specified postprocedural states] 04-01-2020 Episodic Comment on above: 2010 Transient cerebral ischemia (6 sources) Transient cerebral ischemia; Translations: [Transient cerebral ischemic attack, unspecified] 03-13-2019 Chronic Unclassified (1 source) Unknown / UNK(Unknown) Onset: 11-17-2016 Past or Other Problems Problem Classification Problem Date Documented Da te Episodic/Chronic Other connective tissue disease (1 source) Olecranon bursitis, right elbow; Translations: [Olecranon bursitis, right elbow] Onset: 09-23-2023 Episodic Results Test Name Value Interpretation Reference Range Facility Anion gap in Serum or Plasma Ordered By: Edvin Tobar on 05-03-2024 Anion gap [Moles/Vol] 12 mmol/L 5-15 [facility] BUN/creatinine ratioOrdered By: Edvin Tobar on 05-03-2024 Urea nitrogen/Creatinine [Mass ratio] 12.8 mg/mg 10-20 [facility] Bilirubin, totalOrdered By: Edvin Tobar on 05-03-2024 Bilirubin [Mass/Vol] 0.54 mg/dL 0.00-1.30 [facility] Calculated very low density lipoprotein (VLDL) cholesterol measurementOrdered By: Edvin Tobar on 05-03-2024 VLDL Cholesterol 25 mg/dL 5-40 [facility] Carbon dioxide, total [Moles /volume] in Central venous bloodOrdered By: Edvin Tobar on 05-03-2024 CO2 [Moles/Vol] 24.2 mmol/L 21.0-32.0 [facility] Chloride assayOrdered By: Do riley Tobar on 05-03-2024 Chloride [Moles/Vol] 104 mmol/L 98-108 [facility] Comprehensive Metabolic Prof ilon 05-03-2024 Albumin [Mass/Vol] 4.8 g/dL Normal 3.4-4.8 [facility] Comment on above: Performed By: #### L 500.4050, L501.9910, L500.4100 #### [facility] [address] [place], [address] Albumin/Globulin [Mass ratio] 1.4 {ratio} Normal 0.9-2.4 [facility] Comment on above: Performed By: #### L 500.4050, L501.9910, L500.4100 #### [facility] [address] [place], [address] ALK PHOS 58 U/L Normal 40-129 [facility] Comment on above: Performed By: #### L 500.4050, L501.9910, L500.4100 #### [facility] [address] [place], [address] ALT [Catalytic activity/Vol] 33 U/L Normal <=46 [facility] Comment on above: Performed By: #### L 500.4050, L501.9910, L500.4100 #### [facility] [address] [place], [address] AST [Catalytic activity/Vol] 31 U/L Normal <=37 [facility] Comment on above: Performed By: #### L 500.4050, L501.9910, L500.4100 #### [facility] [address] [place], [address] Bilirubin [Mass/Vol] 0.54 mg/dL Normal 0.00-1.30 [facility] Comment on above: Performed By: #### L 500.4050, L501.9910, L500.4100 #### [facility] [address] [place], [address] BUN/CRE 12.8 RATIO Normal 10-20 [facility] Comment on above: Performed By: #### L 500.4050, L501.9910, L500.4100 #### [facility] [address] [place], [address] Calcium [Mass/Vol] 9.9 mg/dL Normal 7.6-11.0 [facility] Comment on above: Performed By: #### L 500.4050, L501.9910, L500.4100 #### [facility] [address] [place], [address] Chloride [Moles/Vol] 104 mmol/L Normal 98-108 [facility] Comment on above: Performed By: #### L 500.4050, L501.9910, L500.4100 #### [facility] [address] [place], [address] CO2 [Moles/Vol] 24.2 mmol/L Normal 21.0-32.0 [facility] Comment on above: Performed By: #### L 500.4050, L501.9910, L500.4100 #### [facility] [address] [place], [address] Creatinine [Mass/Vol] 1.23 mg/dL High 0.70-1.20 [facility] Comment on above: Performed By: #### L 500.4050, L501.9910, L500.4100 #### [facility] [address] [place], [address] GAP 12 Normal 5-15 [facility] Comment on above: Performed By: #### L 500.4050, L501.9910, L500.4100 #### [facility] [address] [place], [address] GFR/1.73 sq M.predicted among non-blacks MDRD (S/P/Bld) [Vol rate/Area] 66 mL/min/{1.73_m2} Normal >60 [facility] Comment on above: Result Comment: mL/m in/1.73m2 CKD-EPI Creatinine Equation (2020) Performed By: #### L 500.4050, L501.9910, L500.4100 #### [facility] [address] [place], [address] Globulin (S) [Mass/Vol] 3.3 g/dL Normal 2.2-4.2 [facility] Comment on above: Performed By: #### L 500.4050, L501.9910, L500.4100 #### [facility] [address] [place], [address] Glucose [Mass/Vol] 99 mg/dL Normal 70-99 [facility] Comment on above: Performed By: #### L 500.4050, L501.9910, L500.4100 #### [facility] [address] [place], [address] Potassium [Moles/Vol] 4.9 mmol/L Normal 3.3-5.1 [facility] Comment on above: Performed By: #### L 500.4050, L501.9910, L500.4100 #### [facility] [address] [place], [address] Sodium [Moles/Vol] 140 mmol/L Normal 133-145 [facility] Comment on above: Performed By: #### L 500.4050, L501.9910, L500.4100 #### [facility] [address] [place], [address] T PROT 8.1 g/dL Normal 5.9-8.4 [facility] Comment on above: Performed By: #### L 500.4050, L501.9910, L500.4100 #### [facility] [address] [place], [address] Urea nitrogen [Mass/Vol] 16 mg/dL Normal 4-19 [facility] Comment on above: Performed By: #### L 500.4050, L501.9910, L500.4100 #### [facility] [address] [place], [address] GFR/1.73 sq M.predicted mary g non-blacks MDRD (S/P/Bld) [Vol rate/Area]Ordered By: Edvin Tobar on 05-03-2024 Estimated GFR (MDRD) Non-Af Amer 66 >60 [facility] Comment on above: mL/min/1.73m2 CKD-EP I Creatinine Equation (2020) Internal Medicine Office Vis shorty 05-03-2024 Internal Medicine Office Visit [facility] [address] [place] [address] [place] [address] OFFICE VISIT Date of Service: 05/03/24 MR#: [id number] Acct: [id number] Name: GEMMALORAINE KAYLENE Rep #: [id number] : 1960 Provider: Dr. 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 Accompanied by: Self Is patient in pain?: No Allergies grass pollen Allergy (Mild, Verified 05/03/24 11:27) congestion Medications ???Medication ???Instructions ???Recorded ???Confirmed ???Type sildenafil 50 mg tablet 50 mg PO DAILY PRN sexual activity 07/08/22 05/03/24 Rx #7 tabs aspirin 325 mg tablet,delayed 325 mg PO DAILY heart health #30 0 10/05/22 05/03/24 Rx release tabs fluticasone propionate 50 2 spray intranasal DAILY allergies 09/22/23 05/03/24 Rx mcg/actuation nasal #54.6 mL spray,suspension rosuvastatin 10 mg tablet 10 mg PO DAILY #90 tabs 09/22/23 0 05/03/24 Rx escitalopram oxalate 20 mg tablet 20 mg PO DAILY anxiety #30 tabs 0 05/02/24 05/03/24 Rx Have you fallen in the past year?: No PFSH Medical History Expressive aphasia Ulnar neuropathy at elbow of right upper extremity Migraine Chronic anxiety Multiple fractures of ribs of left side Rib fracture Fall Pneumothorax, acute Rib fracture TIA (transient ischemic attack) Seasonal allergies Heart murmur High cholesterol Surgical History Hx of colonoscopy History of hernia repair Family History Mother CVA (cerebral vascular accident) Thyroid disorder Father Heart disease Brother Thyroid disorder Social History Smoking Status: Never smoker alcohol intake: current alcohol intake frequency: a few times a month Alcohol type: beer and wine substance use type: does not use what type of physical activity do you participate in: none HPI HPI Chief Complaint: fu Details: LORAINE MENENDEZ, is a 63 M who presents to the office today for a follow-up exam to refill his antidepressant and get the blood work that he did not get after his last physical exam. He is concerned about his weight gain, but he admits that he is not as active as he used to be. He said his antidepressant is decreased his anxiety and he is much more calm than he used to be. ROS Const Constitutional: No body ache, excessive sweating, fatigue, fever(s), frequent falls, headache(s), snoring, weakness, weight change, sleep problems or change in appetite Eyes Eyes: No blurry vision, change in vision, eye pain or Light sensitivity ENT ENT: No abnormal hearing, ear or mastoid pain, tinnitus, nasal congestion, headache(s), neck pain or sore throat Resp Respiratory: No cough, shortness of breath, snoring or wheezing Cardio Cardiology: No chest pain at rest, chest pain with exertion, excessive sweating, shortness of breath, dyspnea on exertion, lightheadedness, orthopnea or palpitations Gastro GI: No abdominal pain, change in bowel habits, constipation, cramping, diarrhea, nausea/dyspepsia or vomiting Genitourinary Male: No burning urination, painful urination, urinary incontinence, urinary frequency or blood in urine Musc Musculoskeletal: No abnormal gait, joint pain, back pain, limited range of motion, neck pain, numbness, stiffness, tingling or Arthritis Skin Skin: No dry skin, redness, lesions, itchy eyes, rash or wounds Neuro Neurology: No abnormal gait, abnormal hearing, abnormal speech, dizziness, weakness, frequent falls, headache(s), memory loss, numbness or tingling Psych Psychiatric: No anxiety, No change in appetite, No depression, No memory loss and No Thoughts of harming yourself/Others Endo Endocrine: No cold intolerance, excessive sweating, fatigue, flushing, heat intolerance, increased thirst/drinking, increased hunger or weight change Aller/Imm Allergy/Immunologic: No itchy eyes, seasonal allergy symptoms, hives or wheezing Randy/Lymp Hematologic/Lymphatic: No easy bleeding, easy bruising or enlarged lymph nodes Exam Const General: cooperative and healthy appearing Nutritional Appearance: average body habitus Orientation: oriented x3 HENMT Head: normal to inspection (more content not included)... Normal [facility] LDL calc ser/plasOrdered By: Edvin Tobar on 05-03-2024 LDL Cholesterol, Calculated 79 mg/dL [facility] Comment on above: Fqyniulbbn=574-213 m g/dL & Higher Rwws=070 mg/dL or greater Laboratory - Chemistry and C hemistry - challengeOrdered By: Edvin Tobar on 05-03-2024 AST [Catalytic activity/Vol] 31 U/L <38 [facility] Lipid Profileon 05-03-2024 CHOL:HDL 3.07 Normal [facility] Comment on above: Performed By: #### L 500.4050, L501.9910, L500.4100 #### [facility] [address] [place], [place], [phone] [phone]) Cholesterol [Mass/Vol] 154 mg/dL Normal <=200 [facility] Comment on above: Result Comment: Chol esterol level, Desirable <200 mg/dL Borderline high cholesterol 200-239 mg/dL High cholesterol >=240 mg/dL Recommendations of the NCEP Adult Treatment Panel for the following risk-cutoff thresholds for the [place] population. Performed By: #### L 500.4050, L501.9910, L500.4100 #### [facility] [address] [place], [place], [phone] Cholesterol in HDL [Mass/Vol] 50 mg/dL Normal [facility] Comment on above: Result Comment: Malika onal Cholesterol Education Program (NCEP) guidelines: <40 mg/dL: Low HDL-cholesterol (major risk factor for CHD) >= 60 mg/dL: High HDL-cholesterol (negative risk factor for CHD) HDL-cholesterol is affected by a number of factors, e.g. smoking, exercise, hormones, sex and age. Performed By: #### L 500.4050, L501.9910, L500.4100 #### [facility] [address] [place], [address] Cholesterol in LDL [Mass/Vol] 79 mg/dL Normal [facility] Comment on above: Result Comment: Bord lcqjso=791-299 mg/dL Higher Ergo=758 mg/dL or greater Performed By: #### L 500.4050, L501.9910, L500.4100 #### [facility] [address] [place], [address] Cholesterol in VLDL [Mass/Vol] 25 mg/dL Normal 5-40 [facility] Comment on above: Performed By: #### L 500.4050, L501.9910, L500.4100 #### [facility] [address] [place], [address] Triglyceride [Mass/Vol] 126 mg/dL Normal [facility] Comment on above: Result Comment: The drugs N-Acetylcysteine and Metamizole may falsely depress this assay. Normal range: <150 mg/dL Borderline High: 150-199 mg/dL High: 200-499 mg/dL Very High: >500 mg/dL Performed By: #### L 500.4050, L501.9910, L500.4100 #### [facility] [address] [place], [address] PSA, total screeningOrdered By: Edvin Tobar on 05-03-2024 Prostate Specific Antigen Screen 0.38 ng/mL 0.02-4.00 [facility] Comment on above: This test was perfor med using the [employer] tPSA method. Measured values of a patient sample can vary depending on the testing procedure used. PSA values determined on patient samples by different testing procedures cannot be used interchangeably. If there is a change in PSA assays while monitoring therapy, sequential testing should be performed to confirm baseline values. PSA,Total - Annual Screenon 05-03-2024 PSA,TOT SCREEN 0.38 ng/mL Normal 0.02-4.00 [facility] Comment on above: Result Comment: This test was performed using the [employer] tPSA method. Measured values of a patient??sample can vary depending on the testing procedure used. PSA values determined on patient samples by different testing procedures cannot be used interchangeably. If there is a change in PSA assays while monitoring therapy, sequential testing should be performed to confirm baseline values. Performed By: #### L 500.4050, L501.9910, L500.4100 #### [facility] [address] [place], [address] Potassium (Unsp spec) [Mass/ Vol]Ordered By: Edvin Tobar on 05-03-2024 Potassium [Moles/Vol] 4.9 mmol/L 3.3-5.1 [facility] Screening total cholesterol/ high density lipoprotein (HDL) cholesterol ratioOrdered By: Edvin Tobar on 05-03-2024 Cholesterol.total/Cho lesterol in HDL [Mass ratio] 3.07 {ratio} [facility] Serum creatinine measurement (mass/volume)Ordered By: Edvin Tobar on 05-03-2024 Creatinine [Mass/Vol] 1.23 mg/dL High 0.70-1.20 [facility] Serum globulin measurementOr dered By: Edvin Tobar 05-03-2024 Globulin (S) [Mass/Vol] 3.3 g/dL 2.2-4.2 [facility] Serum glucose measurement (m ass/volume)Ordered By: Edvin Tobar 05-03-2024 Glucose [Mass/Vol] 99 mg/dL 70-99 [facility] Serum or plasma alanine bowden otransferase (ALT) measurementOrdered By: Edvin Tobar 05-03-2024 ALT [Catalytic activity/Vol] 33 U/L <47 [facility] Serum or plasma albumin arfiq urement (mass/volume)Ordered By: Edvin Tobar 05-03-2024 Albumin [Mass/Vol] 4.8 g/dL 3.4-4.8 [facility] Serum or plasma albumin/glob ulin mass ratioOrdered By: Edvin Tobar 05-03-2024 Albumin/Globulin [Mass ratio] 1.4 {ratio} 0.9-2.4 [facility] Serum or plasma alkaline deborah sphatase measurementOrdered By: Edvin Tobar 05-03-2024 ALP [Catalytic activity/Vol] 58 U/L 40-129 [facility] Serum or plasma calcium rafiq urement (mass/volume)Ordered By: Edvin Tobar on 05-03-2024 Calcium [Mass/Vol] 9.9 mg/dL 7.6-11.0 [facility] Serum or plasma cholesterol in HDL measurement (mass/volume)Ordered By: Edvin Tobar on 05-03-2024 Cholesterol in HDL [Mass/Vol] 50 mg/dL >40 [facility] Comment on above: National Cholesterol Education Program (NCEP) guidelines:<40 mg/dL: Low HDL-cholesterol (major risk factor for CHD)>= 60 mg/dL: High HDL-cholesterol (negative risk factor for CHD)HDL-cholesterol is affected by a number of factors, e.g. smoking, exercise, hormones, sex and age. Serum or plasma cholesterol measurement (mass/volume)Ordered By: Edvin Tobar on 05-03-2024 Cholesterol [Mass/Vol] 154 mg/dL <201 [facility] Comment on above: Cholesterol level, D esirable <200 mg/dLBorderline high cholesterol 200-239 mg/dLHigh cholesterol >=240 mg/dLRecommendations of the NCEP Adult Treatment Panel for the following risk-cutoff thresholds for the [place] population. Serum or plasma urea nitroge n measurement (mass/volume)Ordered By: Edvin Tobar on 05-03-2024 Urea nitrogen [Mass/Vol] 16 mg/dL 4-19 [facility] Sodium levelOrdered By: Eduardo Tobar on 05-03-2024 Sodium [Moles/Vol] 140 mmol/L 133-145 [facility] Total proteinOrdered By: Alessandra Tobar on 05-03-2024 Protein [Mass/Vol] 8.1 g/dL 5.9-8.4 [facility] Triglycerides measurementOrd ered By: Edvin Tobar on 05-03-2024 Triglyceride [Mass/Vol] 126 mg/dL <199 [facility] Comment on above: The drugs N-Acetylcy steine and Metamizole may falsely depress this assay. Normal range: <150 mg/dLBorderline High: 150-199 mg/dLHigh: 200-499 mg/dLVery High: >500 mg/dL Internal Medicine Office Vis shorty 09-23-2023 Internal Medicine Office Visit [facility] [address] [place] [address] [place] [address] OFFICE VISIT Date of Service: 09/23/23 MR#: [id number] Acct: [id number] Name: LORAINE MENENDEZ Rep #: [id number] : 1960 Provider: Dr. 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 Accompanied by: Self Is patient in pain?: No Allergies grass pollen Allergy (Mild, Verified 09/23/23 14:56) congestion Medications ???Medication ???Instructions ???Recorded ???Confirmed ???Type sildenafil 50 mg tablet 50 mg PO DAILY PRN sexual activity 07/08/22 09/23/23 Rx #7 tabs aspirin 325 mg tablet,delayed 325 mg PO DAILY heart health #30 10/05/22 09/23/23 Rx release tabs escitalopram oxalate 20 mg tablet 20 mg PO DAILY anxiety #90 tabs 09/22/23 09/23/23 Rx fluticasone propionate 50 2 spray intranasal DAILY allergies 09/22/23 09/23/23 Rx mcg/actuation nasal #54.6 mL spray,suspension rosuvastatin 10 mg tablet 10 mg PO DAILY #90 tabs 09/22/23 09/23/23 Rx PFSH Medical History Expressive aphasia Ulnar neuropathy at elbow of right upper extremity Migraine Chronic anxiety Multiple fractures of ribs of left side Rib fracture Fall Pneumothorax, acute Rib fracture TIA (transient ischemic attack) Seasonal allergies Heart murmur High cholesterol Surgical History Hx of colonoscopy History of hernia repair Family History Mother CVA (cerebral vascular accident) Thyroid disorder Father Heart disease Brother Thyroid disorder Social History Smoking Status: Never smoker alcohol intake: current alcohol intake frequency: a few times a month Alcohol type: beer and wine substance use type: does not use what type of physical activity do you participate in: none HPI HPI Chief Complaint: elbow drain Details: LORAINE MENENDEZ, is a 63 M who presents to the office today for a procedure to drain the effusion from his right elbow. ROS Const Constitutional: No body ache, chills, excessive sweating, fatigue, fever(s), frequent falls, headache(s), snoring, weakness or change in appetite Eyes Eyes: No blurry vision, change in vision, eye pain or Light sensitivity ENT ENT: No abnormal hearing, ear or mastoid pain, tinnitus, nasal congestion, headache(s), neck pain or sore throat Resp Respiratory: No cough, shortness of breath, snoring or wheezing Cardio Cardiology: No chest pain at rest, chest pain with exertion, excessive sweating, dyspnea on exertion, lightheadedness, orthopnea or palpitations Gastro GI: No abdominal pain, change in bowel habits, constipation, cramping, diarrhea, nausea/dyspepsia or vomiting Genitourinary Male: No burning urination, painful urination, urinary incontinence or urinary frequency Musc Musculoskeletal: No abnormal gait, joint pain, back pain, limited range of motion, muscle weakness, neck pain or numbness Skin Skin: No dry skin, redness, lesions, itchy eyes, rash or wounds Neuro Neurology: No abnormal gait, abnormal hearing, weakness, frequent falls, headache(s), memory loss or numbness Psych Psychiatric: No anxiety, No change in appetite, No depression, No memory loss and No Thoughts of harming yourself/Others Endo Endocrine: No cold intolerance, excessive sweating, fatigue, flushing, heat intolerance, increased thirst/drinking or increased hunger Aller/Imm Allergy/Immunologic: No itchy eyes, seasonal allergy symptoms, hives or wheezing Randy/Lymp Hematologic/Lymphatic: No easy bleeding or easy bruising Office Procedures Office Injections/Aspirations Procedure Detail Procedure performed by: Edvin Tobar Dose of injection: 40 mg kenalog Ortho Injection Site: Yes Ortho Injections/Aspirations Details: Using sterile technique 30 cc of blood-tinged fluid was aspirated from the right elbow joint. 40 mg of Kenalog was injected and at the puncture site was dressed with a compression dressing. Patient tolerated the procedure well I told him I want him to continue to wear an elbow sleeve for 2 weeks and to have that reevaluated if there is significant effusion after the 2 weeks. Coding Leve (more content not included)... Normal [facility] Internal Medicine Office Vis iton 09-22-2023 Internal Medicine Office Visit [facility] [address] [place] [address] [place] [address] OFFICE VISIT Date of Service: 09/22/23 MR#: [id number] Acct: [id number] Name: LORAINE MENENDEZ Rep #: [id number] : 1960 Provider: Dr. 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 Accompanied by: Self Is patient in pain?: No Allergies grass pollen Allergy (Mild, Verified 09/22/23 14:58) congestion Medications ???Medication ???Instructions ???Recorded ???Confirmed ???Type sildenafil 50 mg tablet 50 mg PO DAILY PRN sexual activity 07/08/22 09/22/23 Rx #7 tabs aspirin 325 mg tablet,delayed 325 mg PO DAILY heart health #30 10/05/22 09/22/23 Rx release tabs escitalopram oxalate 20 mg tablet 20 mg PO DAILY anxiety #90 tabs 09/22/23 09/22/23 Rx fluticasone propionate 50 2 spray intranasal DAILY allergies 09/22/23 09/22/23 Rx mcg/actuation nasal #54.6 mL spray,suspension rosuvastatin 10 mg tablet 10 mg PO DAILY #90 tabs 09/22/23 09/22/23 Rx PFSH Medical History Expressive aphasia Ulnar neuropathy at elbow of right upper extremity Migraine Chronic anxiety Multiple fractures of ribs of left side Rib fracture Fall Pneumothorax, acute Rib fracture TIA (transient ischemic attack) Seasonal allergies Heart murmur High cholesterol Surgical History Hx of colonoscopy History of hernia repair Family History Mother CVA (cerebral vascular accident) Thyroid disorder Father Heart disease Brother Thyroid disorder Social History Smoking Status: Never smoker alcohol intake: current alcohol intake frequency: a few times a month Alcohol type: beer and wine substance use type: does not use what type of physical activity do you participate in: none HPI HPI Chief Complaint: yearly Details: LORAINE MENENDEZ, is a 63 M who presents to the office today for a yearly checkup. Was seen in our clinic for bursitis of his right elbow and wants that reevaluated also. 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 ROS Const Constitutional: No body ache, chills, excessive sweating, fatigue, fever(s), frequent falls, headache(s), snoring, weakness or change in appetite Eyes Eyes: No blurry vision, change in vision, eye pain or Light sensitivity ENT ENT: No abnormal hearing, ear or mastoid pain, tinnitus, nasal congestion, headache(s), neck pain or sore throat Resp Respiratory: No cough, shortness of breath, snoring or wheezing Cardio Cardiology: No chest pain at rest, chest pain with exertion, excessive sweating, dyspnea on exertion, lightheadedness, orthopnea or palpitations Gastro GI: No abdominal pain, change in bowel habits, constipation, cramping, diarrhea, nausea/dyspepsia or vomiting Genitourinary Male: No burning urination, painful urination, urinary incontinence or urinary frequency Musc Musculoskeletal: No abnormal gait, joint pain, back pain, limited range of motion, muscle weakness, neck pain or numbness Skin Skin: No dry skin, redness, lesions, itchy eyes, rash or wounds Neuro Neurology: No abnormal gait, abnormal hearing, weakness, frequent falls, headache(s), memory loss or numbness Psych Psychiatric: No anxiety, No change in appetite, No depression, No memory loss and No Thoughts of harming yourself/Others Endo Endocrine: No cold intolerance, excessive sweating, fatigue, flushing, heat intolerance, increased thirst/drinking or increased hunger Aller/Imm Allergy/Immunologic: No itchy eyes, seasonal allergy symptoms, hives or wheezing Randy/Lymp Hematologic/Lymphatic: No easy bleeding or easy bruising Exam Const General: cooperative and healthy appearing Nutritional Appearance: average body habitus Orientation: oriented x3 HENMT Head: normal to inspection Ears: hearing grossly normal bilaterally, TM's normal bilaterally and EAC's normal Mouth: oral mucosae normal Teeth and gingiva: dentition normal Throat: posterior oropharynx normal Eyes General: appear (more content not included)... Normal [facility] Urgent Care Visit Reporton 0 09-09-2023 Urgent Care Visit Report [facility] [address], [address] [place] [address] OFFICE VISIT Date of Service: 09/09/23 MR#: [id number] Acct: [id number] Name: LORAINE MENENDEZ Rep #: [id number] : 1960 Provider: JUVENCIO Cleary Age/Sex: 63/M Location: [facility] Status: Signed Intake Vital Signs 12/09/22 14:34 09/09/23 11:45 Height 5 ft 9 in 5 ft 9 in Weight: 197 lb 199 lb 2 oz BMI 29.0 29.4 BP 130/80 H 134/88 H Blood Pressure Location Lt brachial Rt brachial Position Sitting Sitting Respiration 16 15 Pulse 69 64 Pulse Source Monitor NIBP Temp 98.2 F 98.1 F Temp Source Temporal Temporal Pulse Oximetry (%) 96 99 Oxygen Delivery Method room air room air Intake Visit Reasons: SWOLLEN R ELBOW Chief Complaint: right elbow swelling 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 Is patient in pain?: No Allergies grass pollen Allergy (Mild, Verified 09/09/23 11:46) congestion Medications ???Medication ???Instructions ???Recorded ???Confirmed ???Type sildenafil 50 mg tablet 50 mg PO DAILY PRN sexual activity 07/08/22 09/09/23 Rx #7 tabs aspirin 325 mg tablet,delayed 325 mg PO DAILY heart health #30 10/05/22 09/09/23 Rx release tabs fluticasone propionate 50 2 spray intranasal DAILY allergies 12/09/22 09/09/23 Rx mcg/actuation nasal #54.6 mL spray,suspension escitalopram oxalate 20 mg tablet 20 mg PO DAILY anxiety #90 tabs 07/08/23 09/09/23 Rx rosuvastatin 10 mg tablet 10 mg PO DAILY #90 tabs 07/08/23 09/09/23 Rx Have you fallen in the past year?: No Nurse's Note: right elbow swelling x 24 hours. denies injury or pain. [facility] Medical History Chronic anxiety Expressive aphasia Fall Heart murmur High cholesterol Migraine Multiple fractures of ribs of left side Pneumothorax, acute Rib fracture Rib fracture Seasonal allergies TIA (transient ischemic attack) Ulnar neuropathy at elbow of right upper extremity Surgical History History of hernia repair Hx of colonoscopy Family History Mother CVA (cerebral vascular accident) Thyroid disorder Father Heart disease Brother Thyroid disorder Social History Smoking Status: Never smoker alcohol intake: current alcohol intake frequency: a few times a month Alcohol type: beer and wine substance use type: does not use what type of physical activity do you participate in: none HPI HPI Chief Complaint: right elbow swelling Details: LORAINE MENENDEZ, is a 63 M who presents to the office today for initial evaluation of swelling around his right elbow. Patient states that yesterday he noticed swelling around his right elbow. He states no injuries or previous injuries. No numbness, tingling or loss range of motion. No fever, chills, sweats. No other associated symptoms or alleviating/aggravating factors. ROS Const Constitutional: Positive for other (Negative x10 systems with exception of those listed above) Exam Const General: cooperative and healthy appearing Cardio Rate: regular rate Skin General: no rashes or lesions noted Neuro General: patient alert Extrem General: full ROM, capillary refill normal and normal exam except as noted (Right olecranon bursitis without erythema or warmth.) Psych Appearance: grossly normal Mental Status: mental status grossly normal Coding Level of Care Code Off vis,new,level 3 Diagnoses Olecranon bursitis, right elbow M70.21 Assessment and Plan Assessment and Plan (1) Olecranon bursitis, right elbow: Status: Acute Plan: Encouraged to get plenty of rest, protect the area and keep it from coming in contact with other objects, and use Tylenol or Ibuprofen (unless contraindicated) for fever and comfort. Patient also educated on other symptomatic management techniques. To be seen in 10-14 days if no improvement; sooner if worsening of symptoms. Patient verbalized understanding and agreement with all the above. Clinical Quality Measures Falls Risk Screening/Assistive Devices Have you fallen in the past year?: No 09/09/23 1244 Date Moody Nuñez Signature: Date (if applicable) CC: Normal [facility] Absolute lymphocyte countOrd ered By: Leonor Zuniga on 09-29-2022 Lymphocytes Auto (Unsp spec) [#/Vol] 1.24 10*3/uL 0.83-4.51 [facility] Basophil percentageOrdered B y: Leonor Zuniga on 09-29-2022 Basophils/100 WBC (Bld) 0.4 % 0-1 [facility] Chloride [Moles/Vol] 108 mmol/L 98-107 [facility] Eosinophils/100 WBC (Bld) 3.4 % 0-5 [facility] Glucose [Mass/Vol] 105 mg/dL 74-106 [facility] Comment on above: Fasting Glucose resu lt from 100 to 125 mg/dL suggests IMPAIRED HOMEOSTASIS per A.D.A. criteria. Neutrophils (Bld) [#/Vol] 4.6 10*3/uL 2.0-7.7 [facility] Neutrophils/100 WBC (Bld) 67.3 % 47-70 [facility] Potassium [Moles/Vol] 3.7 mmol/L 3.5-5.1 [facility] Sodium [Moles/Vol] 140 mmol/L 136-145 [facility] WBC (Bld) [#/Vol] 6.9 10*3/uL 4.4-11.0 [facility] Blood erythrocytes count (nu mber/volume)Ordered By: Leonor Zuniga on 09-29-2022 RBC (Bld) [#/Vol] 4.88 10*6/uL 4.6-6.2 [facility] Blood hemoglobin measurement (mass/volume)Ordered By: Leonor Zuniga on 09-29-2022 Hemoglobin (Bld) [Mass/Vol] 14.6 g/dL 13.0-16.5 [facility] Blood lymphocytes/100 leukoc ytesOrdered By: Leonor Zuniga on 09-29-2022 Lymphocytes/100 WBC (Bld) 18.1 % 19-41 [facility] Blood monocytes/100 leukocyt esOrdered By: Leonor Zuniga on 09-29-2022 Monocytes/100 WBC (Bld) 10.7 % 0-10 [facility] Blood platelet mean volumeOr dered By: Leonor Zuniga on 09-29-2022 Platelet mean volume (Bld) [Entitic vol] 9.2 fL 6.2-12.0 [facility] Determination of erythrocyte mean corpuscular volume (MCV)Ordered By: Leonor Zuniga on 09-29-2022 MCV (RBC) [Entitic vol] 88.3 fL 80-94 [facility] Hematocrit Auto (Bld) [Volum e fraction]Ordered By: Leonor Zuniga on 09-29-2022 Hematocrit (Bld) [Volume fraction] 43.1 % 40-54 [facility] Laboratory - Chemistry and C hemistry - challengeOrdered By: Leonor Zuniga on 09-29-2022 CO2 [Moles/Vol] 27.0 mmol/L 21.0-32.0 [facility] Urea nitrogen/Creatinine [Mass ratio] 10.6 mg/mg 10-20 [facility] - Hematology and Cell countsOrdered By: Leonor Zuniga on 09-29-2022 Erythrocyte distribution width (RBC) [Entitic vol] 41.0 fL 35.1-43.9 [facility] Erythrocyte distribution width (RBC) [Ratio] 12.7 % 11.6-14.6 [facility] Immature granulocytes/100 WBC (Bld) 0.100 % 0.0-0.9 [facility] Comment on above: IG% - Immature Granu locytes (promyelocytes, myelocytes and metamyelocytes) > 1% indicates that a LEFT SHIFT is Present. MCH (RBC) [Entitic mass] 29.9 pg 27.0-32.0 [facility] Nucleated RBC/100 WBC (Bld) [Ratio] 0 % 0-5 [facility] MCHC Auto (RBC) [Mass/Vol]Or dered By: Leonor Zuniga on 09-29-2022 MCHC (RBC) [Mass/Vol] 33.9 g/dL 32-36 [facility] No Panel InformationOrdered By: Leonor Zuniga on 09-29-2022 Estimated Creatinine Clearance Calc 62.27 ml/min [facility] Estimated GFR (MDRD) Amer 77 mL/min >60 [facility] Comment on above: GFR Calc Estimated GFR (MDRD) Non-Af Amer 63 mL/min >60 [facility] Comment on above: Non- GFR Calc Platelets bldOrdered By: Paola Zuniga on 09-29-2022 Platelets (Bld) [#/Vol] 343 10*3/uL 150-450 [facility] Serum or plasma calcium rafiq urement (mass/volume)Ordered By: Leonor Zuniga on 09-29-2022 Calcium [Mass/Vol] 8.3 mg/dL 8.5-10.1 [facility] Serum or plasma creatinine m easurement (mass/volume)Ordered By: Leonor Zuniga on 09-29-2022 Creatinine [Mass/Vol] 1.23 mg/dL 0.70-1.30 [facility] Comment on above: The validity of the calculated GFR & GFRAA in patients over 70 years has not been determined. Clinical correlation is essential. Serum or plasma urea nitroge n measurement (mass/volume)Ordered By: Leonor Zuniga on 09-29-2022 Urea nitrogen [Mass/Vol] 13 mg/dL 7-18 [facility] Thin prep Papanicolaou smear with manual screeningOrdered By: Leonor Zuniga on 09-29-2022 Thin prep Papanicolaou smear with manual screening 5 5-15 [facility] Basophil percentageOrdered B y: Leonor Zuniga on 09-28-2022 Cholesterol [Mass/Vol] 194 mg/dL <200 [facility] Comment on above: <200 mg/dL Desirable 200-240 mg/dL Borderline >240 mg/dL High Risk Triglyceride [Mass/Vol] 199 mg/dL <199 [facility] Comment on above: The drugs N-Acetylcy steine and Metamizole may falsely depress this assay.Serum Triglycerides Reference Interval Normal <150 mg/dL Borderline high 150 - 199 mg/dL High 200 - 499 mg/dL Very High > or = 500 mg/dL Serum or plasma cholesterol in HDL measurement (mass/volume)Ordered By: Leonor Zuniga on 09-28-2022 Cholesterol in HDL [Mass/Vol] 37 mg/dL >40 [facility] Comment on above: The drugs N-Acetylcy steine and Metamizole may falsely depress this assay. Reference Range HDL <40 mg/dL Low HDL Cholesterol HDL >or= 60 mg/dL High HDL Cholesterol Serum or plasma cholesterol in VLDL measurement (mass/volume)Ordered By: Leonor Zuniga on 09-28-2022 Cholesterol in VLDL [Mass/Vol] 40 mg/dL 5-40 [facility] Serum or plasma low density lipoprotein (LDL) cholesterol measurement (mass/volume)Ordered By: Leonor Zuniga on 09-28-2022 Cholesterol in LDL [Mass/Vol] 117 mg/dL 0-130 [facility] Whole blood hemoglobin A1c/t otal hemoglobin ratio (mass fraction)Ordered By: Leonor Zuniga on 09-28-2022 HbA1c (Bld) [Mass fraction] 5.4 % 3.8-5.6 [facility] Comment on above: Normal < 5.7 % Predi abetic 5.7 - 6.4 % Diabetic >or= 6.5 % Please note range changes. Glucose Glucometer (BldC) [M ass/Vol]Ordered By: Tone Joseph on 09-27-2022 Glucose [Mass/Vol] 129 mg/dL 74-106 [facility] Comment on above: MANAGEMENT OF PATIEN T CARE PER NURSING PROTOCOL INR in Blood by Coagulation assayOrdered By: Tone Joseph on 09-27-2022 INR Coag (Bld) [Relative time] 1.1 {INR} [facility] Laboratory - CoagulationOrde red By: Tone Joseph on 09-27-2022 aPTT Coag (Bld) [Time] 29.4 s 24.1-36.2 [facility] PT Coag (PPP) [Time] 14.0 s 11.7-14.9 [facility] No Panel InformationOrdered By: Tone Joseph on 09-27-2022 Troponin I High Sensitivity 4 pg/mL 3.0-78.0 [facility] Comment on above: Please Note: New Andressa t Units and Gender Specific Reference Ranges. For more information see Policy Stat Procedure [place] High Sensitivity Troponin (TNIH) and attachments. Basophil percentageOrdered B y: Edvin Tobar on 07-08-2022 Bilirubin [Mass/Vol] 0.70 mg/dL 0.20-1.00 [facility] Comment on above: For patients on eltr ombopag therapy, use of Dimension [place] TBIL is not recommended. Chloride [Moles/Vol] 107 mmol/L 98-107 [facility] Cholesterol [Mass/Vol] 213 mg/dL <200 [facility] Comment on above: <200 mg/dL Desirable 200-240 mg/dL Borderline >240 mg/dL High Risk Glucose [Mass/Vol] 86 mg/dL 74-106 [facility] Potassium [Moles/Vol] 3.7 mmol/L 3.5-5.1 [facility] Protein [Mass/Vol] 7.8 g/dL 6.4-8.2 [facility] Sodium [Moles/Vol] 137 mmol/L 136-145 [facility] Triglyceride [Mass/Vol] 124 mg/dL <199 [facility] Comment on above: The drugs N-Acetylcy steine and Metamizole may falsely depress this assay.Serum Triglycerides Reference Interval Normal <150 mg/dL Borderline high 150 - 199 mg/dL High 200 - 499 mg/dL Very High > or = 500 mg/dL Laboratory - Chemistry and C hemistry - challengeOrdered By: Edvin Tobar on 07-08-2022 ALP [Catalytic activity/Vol] 54 U/L 45-117 [facility] ALT [Catalytic activity/Vol] 38 U/L 16-61 [facility] CO2 [Moles/Vol] 22.0 mmol/L 21.0-32.0 [facility] Globulin (S) [Mass/Vol] 3.6 g/dL 2.2-4.2 [facility] Urea nitrogen/Creatinine [Mass ratio] 13.9 mg/mg 10-20 [facility] No Panel InformationOrdered By: Edvin Tobar on 07-08-2022 Estimated GFR (MDRD) Amer 77 mL/min >60 [facility] Comment on above: GFR Calc Estimated GFR (MDRD) Non-Af Amer 64 mL/min >60 [facility] Comment on above: Non- GFR Calc Serum or plasma albumin rafiq urement (mass/volume)Ordered By: Edvin Tobar on 07-08-2022 Albumin [Mass/Vol] 4.2 g/dL 3.2-5.0 [facility] Serum or plasma albumin/glob ulin mass ratioOrdered By: Edvin Tobar on 07-08-2022 Albumin/Globulin [Mass ratio] 1.2 {ratio} 0.9-2.4 [facility] Serum or plasma calcium rafiq urement (mass/volume)Ordered By: Edvin Tobar on 07-08-2022 Calcium [Mass/Vol] 8.9 mg/dL 8.5-10.1 [facility] Serum or plasma cholesterol in HDL measurement (mass/volume)Ordered By: Edvin Tobar on 07-08-2022 Cholesterol in HDL [Mass/Vol] 50 mg/dL >40 [facility] Comment on above: The drugs N-Acetylcy steine and Metamizole may falsely depress this assay. Reference Range HDL <40 mg/dL Low HDL Cholesterol HDL >or= 60 mg/dL High HDL Cholesterol Serum or plasma cholesterol in VLDL measurement (mass/volume)Ordered By: Edvin Tobar on 07-08-2022 Cholesterol in VLDL [Mass/Vol] 25 mg/dL 5-40 [facility] Serum or plasma creatinine m easurement (mass/volume)Ordered By: Edvin Tobar on 07-08-2022 Creatinine [Mass/Vol] 1.22 mg/dL 0.70-1.30 [facility] Comment on above: The validity of the calculated GFR & GFRAA in patients over 70 years has not been determined. Clinical correlation is essential. Serum or plasma low density lipoprotein (LDL) cholesterol measurement (mass/volume)Ordered By: Edvin Tobar on 07-08-2022 Cholesterol in LDL [Mass/Vol] 138 mg/dL 0-130 [facility] Serum or plasma urea nitroge n measurement (mass/volume)Ordered By: Edvin Tobar on 07-08-2022 Urea nitrogen [Mass/Vol] 17 mg/dL 7-18 [facility] Thin prep Papanicolaou smear with manual screeningOrdered By: Edvin Tobar on 07-08-2022 Thin prep Papanicolaou smear with manual screening 28 U/L 15-37 [facility] Thin prep Papanicolaou smear with manual screening 8 5-15 [facility] CNOVon 11-17-2016 CNOV Office Visit (UC) ---------JAMAR MENENDEZ ([id number]) 1960 [facility] Time Provider Rovdorcbta40/10/17 9:20 AM EMANUEL FITZGERALD During your visit today, we recorded the following information about you:Lesly Barroso Ma 11/17/2016 10:54 AM SignedAMB ROOMING INTAKE FLOWSHEET DATARisk ScreeningDo you have concerns about personal safety or safety in the home?: NoPainPain Score: 5/10Pain Location: Shoulder-RightDescription : Dull, SharpDuration Amount of Time: 1Duration Units: MonthsFrequency: ContinuousIntervention: MedicationPatient here today for evaluation of right shoulder pain x 1 month. Painbecame noticeably worse over the weekend. States about a month ago he wasbusting up some concrete with a sledge hammer and thinks that started his pain. 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 He would belifting 50-75 lb boxes.Emanuel Fitzgerald, DO 11/17/2016 10:54 AM SignedPatient presents with:New Patient: Right shoulder painHPI:Loraine is a 56 year old male right-hand dominant who presents for evaluation ofshoulder pain for 1 month. The pain was the result of overuse, breaking upconcrete with a sledgehammer over the course of a weekend, pain left shortlythereafter. The location is along the lateral aspect of the shoulder, withradiation to the mid brachium. The pain is described as a dull ache and sharppain, intensity is 5/10 at its worse. The dull pain is constant in nature, andaim comes on with overhead activity. The pain is relieved with rest, andaggravated with reaching, lifting and overhead movements. The pain wakes thepatient at night. Over the counter NSAIDs minimally improve the symptoms.Previous treatments include NSAIDS. Previous studies include X-ray.MEDICATIONS:Current Outpatient Prescriptions on File Prior to Visit:oxaprozin (DAYPRO) 600 mg tablet Take 1 tablet by mouth twice daily.ATORVASTATIN CALCIUM (LIPITOR ORAL) Take by mouth.TAMSULOSIN HCL (FLOMAX ORAL) Take by mouth.No current facility-administered medications on file prior to visit.ALLERGIES:Review of patient's allergies indicates no known allergies.HISTORIES:PAST MEDICAL HISTORYDiagnosis Date- Arrhythmia heart murmur- HypercholesteremiaPAST SURGICAL HISTORYProcedure Laterality Date- COLONOSCOP W/ OR W/O [facility] SPEC 10/11/14 Colonoscopy- HERNIA REPAIR HX times 2- PAST SURGICAL HISTORY OF cyst under armSocial History Marital status: Spouse name: Years of education: Number of children:Social History Main Topics Smoking status: Never Smoker Smokeless status: Never Used Alcohol use: Yes Drug use: NoROS:PE:General: Well-appearing male in no acute distress.Vital Signs: There were no vitals taken for this visit.Skin: Intact to inspection and palpation.Psychiatric: Mood and affect appropriate. A and O x3.Musculoskeletal Exam: Gait and Station normal.Cervical spine: Normal ROM and normal to palpation.Bilateral upper extremities show equal motion of the elbows, and wrists.Right shoulder exam shows active forward flexion to 160, passively to 160;abduction to 160, IR to L1, ER adduction was 60. Positive for Hawkin's andNeer's tests.Rotator cuff strength 5/5.Normal stability to testing. Normal tone.No pain to palpation of the AC joint. Positive pain to palpation of thebicipital groove.Neurologic Exam: Intact sensation and reflexes in both upper extremities.Vascular: 2+ radial pulses, both upper extremities.XRAYs: Show no fractures, subluxations, dislocations, or destructive lesions.IMPRESSION: Right shoulder chronic impingement.RECOMMENDATIO NS:The risk, benefits and alternatives of injection and no injection therapy werediscussed. Personnel were discussed and the patient consented for an injection. The patient has been identified by name and birthdate. The injection site wasidentified, marked and prepped with a alcohol swab. Time out completed. Thesubacromial space was injected with a 22 gauge needle with 1cc Celestone (6mg), 4cc xylocaine plain 1%. The injection site was then dressed with abandaid. The patient tolerated the injection well.Handout was given for home rotator cuff conditioning exercises to begin in 2-3days. The patient was instructed to call the office if any adverse localeffects occurred or any if any questions or concerns arise.Blaine Santoyo Provider: SELF [[id number]]Allergies As of Date: 11/17/2016(No Known Allergies)Date Reviewed: 11/17/2016Reviewed by: Lesly Barroso Ma - Fully AssessedReason for Visit: New Patient [172] Cmt: Right shoulder painPrimary Visit Diagnosis:Shoulder impingement syndrome, right [M75.41]Prescriptions as of 11/17/2016 Sig: NAPROXEN 500 MG TABLET Take 1 tablet by mouth twice * OXAPROZIN 600 MG TABLET Take 1 tablet by mouth twice * LIPITOR ORAL Take by mouth. FLOMAX ORAL Take by mouth.Medication notes this encounter OXAPROZIN 600 MG TABLET >> Lesly Barroso Ma 11/17/2016 9:30 AM >> LESLY BARROSO MA Nov 17, 2016 9:30 AM Not taking. LIPITOR ORAL >> Lesly Barroso Ma 11/17/2016 9:30 AM >> LESLY BARROSO MA katlyn Nov 17, 2016 9:30 AM Takes when he remembers. FLOMAX ORAL >> Lesly Barroso Ma 11/17/2016 9:30 AM >> LESLY BARROSO MA Nov 17, 2016 9:30 AM Not taking.Problem List As Of Date 11/17/2016 Noted Resolved Special screening for malignant neoplasms, colo*INVALID FOR*10/11/2014Encounter Number: [id number] Status:Closed by EMANUEL FITZGERALD DO, V on 11/17/16 [facility] PROGRESSon 11-17-2016 PROGRESS HNO ID: [id number] thor: Soheila Jameson: (none)Author Type: PhysicianType: Progress NotesFiled: 11/17/2016 10:54 AMNote Text:Patient presents with:New Patient: Right shoulder painHPI:Loraine is a 56 year old male right-hand dominant who presents forevaluation of shoulder pain for 1 month. The pain was the result ofoveruse, breaking up concrete with a sledgehammer over the course of aweekend, pain left shortly thereafter. The location is along the lateralaspect of the shoulder, with radiation to the mid brachium. The pain isdescribed as a dull ache and sharp pain, intensity is 5/10 at its worse.The dull pain is constant in nature, and aim comes on with overheadactivity. The pain is relieved with rest, and aggravated with reaching,lifting and overhead movements. The pain wakes the patient at night. Overthe counter NSAIDs minimally improve the symptoms. Previous treatmentsinclude NSAIDS. Previous studies include X-ray.MEDICATIONS:Current Outpatient Prescriptions on File Prior to Visit:oxaprozin (DAYPRO) 600 mg tablet Take 1 tablet by mouth twice daily.ATORVASTATIN CALCIUM (LIPITOR ORAL) Take by mouth.TAMSULOSIN HCL (FLOMAX ORAL) Take by mouth.No current facility-administered medications on file prior to visit.ALLERGIES:Review of patient's allergies indicates no known allergies.HISTORIES:PAST MEDICAL HISTORYDiagnosis Date- Arrhythmia heart murmur- HypercholesteremiaPAST SURGICAL HISTORYProcedure Laterality Date- COLONOSCOP W/ OR W/O [facility] SPEC 10/11/14 Colonoscopy- HERNIA REPAIR HX times 2- PAST SURGICAL HISTORY OF cyst under armSocial History Marital status: Spouse name: Years of education: Number of children:Social History Main Topics Smoking status: Never Smoker Smokeless status: Never Used Alcohol use: Yes Drug use: NoROS:PE:General: Well-appearing male in no acute distress.Vital Signs: There were no vitals taken for this visit.Skin: Intact to inspection and palpation.Psychiatric: Mood and affect appropriate. A and O x3.Musculoskeletal Exam: Gait and Station normal.Cervical spine: Normal ROM and normal to palpation.Bilateral upper extremities show equal motion of the elbows, and wrists.Right shoulder exam shows active forward flexion to 160, passively to 160;abduction to 160, IR to L1, ER adduction was 60. Positive for Hawkin'sand Neer's tests.Rotator cuff strength 5/5.Normal stability to testing. Normal tone.No pain to palpation of the AC joint. Positive pain to palpation of thebicipital groove.Neurologic Exam: Intact sensation and reflexes in both upper extremities.Vascular: 2+ radial pulses, both upper extremities.XRAYs: Show no fractures, subluxations, dislocations, or destructivelesions.IMPRES KARAN: Right shoulder chronic impingement.RECOMMENDATIO NS:The risk, benefits and alternatives of injection and no injection therapywere discussed. Personnel were discussed and the patient consented for aninjection. The patient has been identified by name and birthdate. Theinjection site was identified, marked and prepped with a alcohol swab.Time out completed. The subacromial space was injected with a 22 gaugeneedle with 1cc Celestone (6 mg), 4cc xylocaine plain 1%. The injectionsite was then dressed with a bandaid. The patient tolerated the injectionwell.Handout was given for home rotator cuff conditioning exercises to begin in2-3 days. The patient was instructed to call the office if any adverselocal effects occurred or any if any questions or concerns arise.Emanuel Fitzgerald DO [facility] PROGRESS HNO ID: [id number] thor: Lesly Barroso MaService: (none)Author Type: (none)Type: Progress NotesFiled: 11/17/2016 10:54 AMNote Text:AMB ROOMING INTAKE FLOWSHEET DATARisk ScreeningDo you have concerns about personal safety or safety in the home?: NoPainPain Score: 5/10Pain Location: Shoulder-RightDescription : Dull, SharpDuration Amount of Time: 1Duration Units: MonthsFrequency: ContinuousIntervention: MedicationPatient here today for evaluation of right shoulder pain x 1 month. Painbecame noticeably worse over the weekend. States about a month ago he wasbusting up some concrete with a sledge hammer and thinks that started hispain. 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 He wouldbe lifting 50-75 lb boxes. [facility] Vital Signs Date Time Vital Sign Value Performing Clinician Stephaniei ashely 05-03-2024 11:30-0400 Body height 175.[address] Edvin Tobar DO Work Phone: [facility] 05-03-2024 11:30-0400 Body mass index (BMI) [Ratio] 29.8 kg/m2 Dr. Edvin Tobar DO Work Phone: [facility] 05-03-2024 11:30-0400 Body temperature 97.4 [degF] Dr. Edvin Tobar DO Work Phone: [facility] 05-03-2024 11:30-0400 Body weight 91.[address] Edvin Tobar DO Work Phone: [facility] 05-03-2024 11:30-0400 Diastolic blood pressure 72 mm[Hg] Dr. Edvin Tobar DO Work Phone: [facility] 05-03-2024 11:30-0400 Heart rate 65 /min Dr. Edvin Tobar DO Work Phone: [facility] 05-03-2024 11:30-0400 Respiratory rate 16 /min Dr. Edvin Tobar DO Work Phone: [facility] 05-03-2024 11:30-0400 SaO2% (BldA) [Mass fraction] 97 % Dr. Edvin Tobar DO Work Phone: [facility] 05-03-2024 11:30-0400 Systolic blood pressure 138 mm[Hg] Dr. Edvin Tobar DO Work Phone: [facility] 12-09-2022 14:34-0400 Body height 175.[address] Edvin Tobar Work Phone: [facility] 12-09-2022 14:34-0400 Body mass index (BMI) [Ratio] 29 kg/m2 Dr. Edvin Tobar Work Phone: [facility] 12-09-2022 14:34-0400 Body temperature 98.2 [degF] Dr. Edvin Tobar Work Phone: [facility] 12-09-2022 14:34-0400 Body weight 89.[address] Edvin Tobar Work Phone: [facility] 12-09-2022 14:34-0400 Diastolic blood pressure 80 mm[Hg] Dr. Edvin Tobar Work Phone: [facility] 12-09-2022 14:34-0400 Heart rate 69 /min Dr. Edvin Tobar Work Phone: [facility] 12-09-2022 14:34-0400 Respiratory rate 16 /min Dr. Edvin Tobar Work Phone: [facility] 12-09-2022 14:34-0400 SaO2% (BldA) [Mass fraction] 96 % Dr. Edvin Tobar Work Phone: [facility] 12-09-2022 14:34-0400 Systolic blood pressure 130 mm[Hg] Dr. Edvin Tobar Work Phone: [facility] 10-05-2022 13:47-0400 Body mass index (BMI) [Ratio] 28.7 kg/m2 Dr. Edvin Tobar Work Phone: [facility] 10-05-2022 13:47-0400 Body temperature 97.3 [degF] Dr. Edvin Tobar Work Phone: [facility] 10-05-2022 13:47-0400 Body weight 88.[address] Edvin Tobar Work Phone: [facility] 10-05-2022 13:47-0400 Diastolic blood pressure 86 mm[Hg] Dr. Edvin Tobar Work Phone: [facility] 10-05-2022 13:47-0400 Heart rate 63 /min Dr. Edvin Tobar Work Phone: [facility] 10-05-2022 13:47-0400 Respiratory rate 18 /min Dr. Edvin Tobar Work Phone: [facility] 10-05-2022 13:47-0400 SaO2% (BldA) [Mass fraction] 99 % Dr. Edvin Tobar Work Phone: [facility] 10-05-2022 13:47-0400 Systolic blood pressure 128 mm[Hg] Dr. Edvin Tobar Work Phone: [facility] 09-29-2022 14:43-0400 Body temperature 98 [degF] Dr. Edvin Tobar Work Phone: [facility] 09-29-2022 14:43-0400 Diastolic blood pressure 81 mm[Hg] Dr. Edvin Tobar Work Phone: [facility] 09-29-2022 14:43-0400 Heart rate 69 /min Dr. Edvin Tobar Work Phone: [facility] 09-29-2022 14:43-0400 Respiratory rate 16 /min Dr. Edvin Tobar Work Phone: [facility] 09-29-2022 14:43-0400 SaO2% (BldA) [Mass fraction] 96 % Dr. Edvin Tobar Work Phone: [facility] 09-29-2022 14:43-0400 Systolic blood pressure 130 mm[Hg] Dr. Edvin Tobar Work Phone: [facility] 09-29-2022 11:55-0400 Body mass index (BMI) [Ratio] 28.8 kg/m2 Dr. Edvin Tobar Work Phone: [facility] 09-27-2022 17:48-0400 Body height 175.[address] Edvin Tobar Work Phone: [facility] 09-27-2022 17:48-0400 Body weight 88.[address] Edvin Tobar Work Phone: [facility] 07-08-2022 15:40-0400 Body height 175.[address] Edvin Tobar Work Phone: [facility] 07-08-2022 15:40-0400 Body mass index (BMI) [Ratio] 28 kg/m2 Dr. Edvin Tobar Work Phone: [facility] 07-08-2022 15:40-0400 Body temperature 98.8 [degF] Dr. Edvin Tobar Work Phone: [facility] 07-08-2022 15:40-0400 Body weight 86.[address] Edvin Tobar Work Phone: [facility] 07-08-2022 15:40-0400 Diastolic blood pressure 86 mm[Hg] Dr. Edvin Tobar Work Phone: [facility] 07-08-2022 15:40-0400 Heart rate 70 /min Dr. Edvin Tobar Work Phone: [facility] 07-08-2022 15:40-0400 Respiratory rate 14 /min Dr. Edvin Tobar Work Phone: [facility] 07-08-2022 15:40-0400 SaO2% (BldA) [Mass fraction] 98 % Dr. Edvin Tobar Work Phone: [facility] 07-08-2022 15:40-0400 Systolic blood pressure 130 mm[Hg] Dr. Edvin Tobar Work Phone: [facility] 04-16-2022 16:37-0500 Body height 175.[address] Edvin Tobar Work Phone: [facility] 04-16-2022 16:37-0500 Body mass index (BMI) [Ratio] 27.7 kg/m2 Dr. Edvin Tobar Work Phone: [facility] 04-16-2022 16:37-0500 Body temperature 98.1 [degF] Dr. Edvin Tobar Work Phone: [facility] 04-16-2022 16:37-0500 Body weight 85.[address] Edvin Tobar Work Phone: [facility] 04-16-2022 16:37-0500 Diastolic blood pressure 86 mm[Hg] Dr. Edvin Tobar Work Phone: [facility] 04-16-2022 16:37-0500 Heart rate 73 /min Dr. Edvin Tobar Work Phone: [facility] 04-16-2022 16:37-0500 Respiratory rate 14 /min Dr. Edvin Tobar Work Phone: [facility] 04-16-2022 16:37-0500 SaO2% (BldA) [Mass fraction] 98 % Dr. Edvin Tobar Work Phone: [facility] 04-16-2022 16:37-0500 Systolic blood pressure 120 mm[Hg] Dr. Edvin Tobar Work Phone: [facility] Encounters Encounter Date Encounter Type Care Provider Facility Start: 05-03-2024 End: 05-03-[address] Edvin Henderson DO [facility] Work Phone: Start: 05-03-2024 End: 05-03-[address] Edvin Tobar DO Work Phone: [facility] Work Phone: Start: 05-03-2024 End: 05-03-2024 ambulatory Edvin Tobar Facility:[facility] Start: 09-23-2023 End: 09-23-2023 ambulatory Edvin Tobar Facility[place] Start: 09-23-2023 Encounter for genera l adult medical examination without abnormal findings Edvin Tobar [facility] Start: 09-22-[address] Edvin Tobar DO Work Phone: [facility] Start: 09-22-2023 End: 09-22-2023 ambulatory Edvin Tobar Facility:[facility] Start: 09-09-2023 End: 09-09-2023 ambulatory Moody HENNING Facility:[facility] Start: 12-11-2022 End: 12-11-[address] Edvin Tobar Work Phone: [facility] Work Phone: Start: 12-11-2022 End: 12-11-[address] Edvin Tobar Work Phone: [facility] Work Phone: Start: 12-09-2022 End: 12-09-[address] Edvin Tobar Work Phone: [facility] Work Phone: Start: 10-27-2022 End: 10-27-[address] Edvin Tobar Work Phone: [facility] Work Phone: Start: 10-05-2022 End: 10-05-[address] Edvin Tobar Work Phone: [facility] Work Phone: Start: 09-29-2022 Non-patient / Non-visit Dr. Crocker Work Phone: [facility] [facility] Work Phone: Start: 09-28-2022 Non-patient / Non-visit Dr. Crocker Work Phone: [facility] Inpatient Physicians Work Phone: Start: 09-28-2022 Non-patient / Non-visit Dr. Crockre Work Phone: [facility] Start: 09-27-2022 End: 09-29-2022 Evaluation and management of inpatient Dr. Edvin Tobar Work Phone: [facility] Work Phone: Start: 09-27-2022 End: 09-29-[address] Edvin Tobar Work Phone: [facility] Work Phone: Start: 07-08-2022 End: 07-08-[address] Edvin Tobar Work Phone: [facility] Work Phone: Start: 07-08-2022 End: 07-08-[address] Edvin Tobar Work Phone: [facility] Internal Medicine Work Phone: Start: 05-15-2022 End: 05-15-[address] Edvin Tobar Work Phone: [facility] Work Phone: Start: 05-15-2022 End: 05-15-[address] Edvin Tobar Work Phone: [facility]-Radiology, [facility] Start: 04-16-2022 End: 04-16-[address] Edvin Tobar Work Phone: [facility] Internal Medicine Start: 01-10-2017 Ambulatory [facility] Start: 11-17-2016 End: 11-18-2016 Ambulatory [facility] Procedures Date Procedure Procedure Detail Performing Clinician Start: 12-11-2022 Plain x-ray of pelvi s and lower extremity Dr. Edvin Tobar Work Phone: Start: 10-27-2022 CT of pelvis with contrast Dr. Edvin Tobar Work Phone: Start: 09-28-2022 MRI of brain without contrast Dr. Edvin Tobar Work Phone: Start: 09-27-2022 Plain chest X-ray Dr. Ayana Tobar Work Phone: Start: 09-27-2022 CT angiography of he ad and neck Dr. Edvin Tobar Work Phone: Start: 09-27-2022 CT of head without contrast Dr. Edvin Tobar Work Phone: Start: 05-15-[address] Edvin Tobar Work Phone: Plan of Treatment Date Care Activity Detail Author Start: 09-29-2022 Patient discharge [facility] Start: 09-29-2022 [facility] Start: 09-28-2022 Telepractice consultation [facility] Start: 09-27-2022 Application of inter mittent pneumatic compression device [facility] Start: 09-27-2022 Following clinical p athway protocol [facility] Start: 09-27-2022 Transfusion of blood product [facility] Start: 09-27-2022 Speech therapy assessment [facility] Start: 09-27-2022 Assessment of risk o f venous thromboembolism [facility] Start: 09-27-2022 Cardiac monitoring [facility] Start: 09-27-2022 Catheterization of vein [facility] Start: 09-27-2022 Continuous pulse oximetry [facility] Start: 09-27-2022 Elevation of head of bed [facility] Start: 09-27-[address] [facility] Start: 09-27-[address] anned interventions [facility] Start: 09-27-2022 Insertion of cathete r into peripheral vein [facility] Start: 09-27-2022 Measuring intake and output [facility] Start: 09-27-2022 Notification of physician [facility] Start: 09-27-2022 Providing care accor ding to standard [facility] Start: 09-27-2022 Provision of activity privileges [facility] Start: 09-27-2022 Referral to occupati onal therapist [facility] Start: 09-27-2022 Referral to service [facility] Start: 09-27-2022 Tobacco use cessation education [facility] Start: 09-27-2022 [facility] Start: 09-27-2022 Admission procedure [facility] Start: 09-27-2022 Oxygen therapy [facility] Start: 09-27-2022 [facility] Patient Education TIA Dc [facility] Work Phone: Patient referral [facility] Work Phone: Immunizations Immunization Date Immunization Notes Care Provider Fa cility 05-16-2020 Covid (Pfizer) Dr. Edvin proctor Work Phone: [facility] 04-25-2020 Covid (Pfizer) Dr. Edvin proctor Work Phone: [facility] 02-17-[address] Edvin Tobar Work Phone: [facility] 10-28-[address] Edvin Tobar Work Phone: [facility] 11-30-[address] Edvin Tobar Work Phone: [facility] 01-10-2017 tetanus toxoid, redu justine diphtheria toxoid, and acellular pertussis vaccine, adsorbed Dr. Edvin Tobar Work Phone: [facility] Payers Date Payer Category Payer Self-pay [id number] 2013 Unknown [id number] 2013 Unknown [id number] Unknown [facility] PACKAGE PLAN [id number] Unknown [id number] [id number] [id number] Unknown [id number] [id number] [id number] Unknown [id number] 2.16.8 [id number] Unknown [id number] 2.16.8 [id number] Unknown [id number] [id number] [id number] Social History Date Type Detail Facility Start: 04-16-2022 End: 12-09-2022 Tobacco smoking status NHIS Unknown if ever smoked [facility] Start: 12-15-[address] [facility] Start: 03-13-2019 Spouse/ Signif icant Other [facility] Start: 06-09-[address] [facility] Start: 1960 Sex Assigned At Male [facility] Start: 12-09-2022 Tobacco smoking status NHIS Never smoked tobacco (finding) [facility] Start: 05-08-2024 Sex Male (finding) [facility] Goals Date Patient Goal Desired Activity /State Functional Status Date Assessment Result Facility 09-29-2022 Functional status Ambulates;Up ad jorge [facility] Work Phone: Mental Status Date Assessment Result Facility 09-29-2022 Cognitive function Voice/Name [facility] Work Phone: Clinical Notes 09-27-2022 to 05-03-2024 Note Date & Type Note Facility 05-03-2024 Evaluation note Diagnosis Onset Date Resolution Depression acute May 03 11:25am High cholesterol acute May 032024 11:25am [facility] Work Phone: 1(664) 589-911008-22-2023 Consult note Author Jayshree Castaneda [facility] September 29, 2022 10:30am Note Date/Time September 29, 2022 10 :30am [facility] Medical Records Department [address] [facility] [place] [address] Counseling Note - Pharmacy 09/29/22 1030 MR#: [id number] Acct: [id number] Name: LORAINE MENENDEZ Rep #:[id number] : 1960 62 From: Jayshree Castaneda PCP: Dr. Edvin Tobar, DO Status:AD M LUDY Y Location: [place] [address] Pharmacy [place] Med Reconciliation Pharmacy Service has performed discharge medication reconciliation for this patient. The patient's discharge medication list was reviewed for discrepancies and discrepancies were resolved. Medications at Discharge Home Medications fluticasone propionate 50 mcg/actuation nasal spray,suspension 2 spray intranasal DAILY allergies #54.6 mL 01/21/21 cetirizine 10 mg tablet (Zyrtec) 10 mg PO DAILY PRN allergy symptoms 11/26/21 escitalopram oxalate 20 mg tablet 20 mg PO DAILY anxiety #90 tabs 07/08/22 rosuvastatin 10 mg tablet (Crestor) 10 mg PO DAILY #90 tabs 07/08/22 sildenafil 50 mg tablet 50 mg PO DAILY PRN sexual activity #7 tabs 07/08/22 aspirin 81 mg tablet,delayed release 81 mg PO DAILY heart health #30 tabs 09/29/22 09/29/22 1030 <Electronically signed by Jayshree Castaneda> Date _ Jayshree Castaneda Cosigner Signature (if applicable): Date CC: ~ Signed [facility] Work Phone: 1(823) 934-215008-22-2023 Discharge summary Author Leonor Zuniga [facility] September 29, 2022 10:24am Note Date/Time September 29, 2022 10 :24am [facility] Medical Records Department [address] [place] [address] Instructions for Home/Discharge Instructions 09/29/22 1024 MR#: [id number] Acct: [id number] Name: LORAINE MENENDEZ Rep #:[id number] : 1960 62 From: Leonor Zuniga MD PCP: Dr. Edvin Tobar, DO Status:AD M LUDY Discharge Instructions Diet Discharge Diet: Low fat / Low cholesterol Activity Discharge Activity: Return to Normal Activity Weight Bearing Status: Weight bearing as tolerated Dressing / Incision Call your doctor if you observe: Fever of 101 or Higher, Shortness of breath, Dizziness, Swelling in the ankles, Chest pain and Increased palpitations (irregular heartbeat) Follow Up Care Test Results: Test results from this visit will be discussed in further detail at your follow- up appointment, if applicable. Discharge Plan Admission Admit Date/Time: 09/27/22 16:58 Primary Reason for Your Visit: TIA Attending Provider: Leonor Zuniga Primary Care Provider: Edvin Tobar Instructions Patient Instructions: TIA Dc Discharge Orders/Prescriptions Prescriptions: Continued fluticasone propionate 50 mcg/actuation spray,suspension 2 spray INTRANASAL DAILY Qty: 54.6 3RF Rx Instructions: administer into each nostril cetirizine [Zyrtec] 10 mg tablet 10 mg PO DAILY PRN (Reason: allergy symptoms) escitalopram oxalate 20 mg tablet 20 mg PO DAILY Qty: 90 1RF rosuvastatin [Crestor] 10 mg tablet 10 mg PO DAILY Qty: 90 1RF sildenafil 50 mg tablet 50 mg PO DAILY PRN (Reason: sexual activity) Qty: 7 3RF Rx Instructions: administer 30 minutes to 4 hours before activity aspirin 81 mg tablet,delayed release (DR/EC) 81 mg PO DAILY Qty: 30 2RF Referrals / Follow Up: Edvin Tobar DO [Primary Care Provider] - Within 1 Week Dominic Abdi MD [Non-Staff -Ordering Privileges] - Within 2 Weeks (see to establish outpatient neurology care) Disposition Disposition (needs filled in before D/C Order can be placed): Home, Self Care 09/29/22 1024<Electronically signed by Leonor Zuniga MD>Leonor Zuniga MD CC: Dr. Edvin Tobar DO ~ Signed [facility] Work Phone: 1(887) 598-942508-21-2023 History and physical note Author Leonor [facility] September 28, 2022 3:17pm Note Date/Time September 27, 2022 3: 47pm [facility] Medical Records Department [address] [place] [address] History & Physical Exam 09/27/22 1540 MR#: [id number] Acct: [id number] Name: ADAMRUDYANALORAINE MAURICE Rep #:[id number] : 1960 62 From: Leonor Zuniga MD PCP: Dr. Edvin Tobar, DO Status:AD M LUDY Location: [facility] [id number] HPI - General General Date of Service: 09/27/22 Chief Complaint: stroke like symptoms HPI Narrative LORAINE MENENDEZ, is a 62 M with a PMH as outlined who presents via the ED on 09/27/2022 with a complaint of stroke like symptoms. He was out on his boat with his and says he started having expressive aphasia. His last known well was ~ 1345 today, and couldnt get his words out. He also couldnt see hte letters on his phone clearly. He couldnt visualise letters on road signs also on his way [facility]. His symptoms had resolved by the time he did arrive in the hospital. However, at ~ 3:30pm, he started having headache and his expressive aphasia recurred and couldnt read sentences shown to him. [facility] telestroke had evaluated him when he initially arrived and recommended he be admitted to be worked up for TIA and to also have an EEG. Telestroke was called again after hissymptoms recurred. They reviewed him and recommended that he wasnt a candidate for tPA. Vitals in the ED were BP of 157/94, CO of 69, RR of 16 and oxygen sats of 98% onroom air. CBC was unremarkable and BMP showed Cr of 1.46 with sodium of 139. CT of the brain showed no acute intracranial pathology. CTA of the head and neck showed no acute pathology. HE is being admitted to be managed for TIA to rule out a stroke. [facility] Medical History (Updated 09/27/22 @ 15:[address] Tone Joseph, DO) Chronic anxiety Fall Heart murmur High cholesterol Migraine Multiple fractures of ribs of left side Pneumothorax, acute Rib fracture Rib fracture Seasonal allergies TIA (transient ischemic attack) Ulnar neuropathy at elbow of right upper extremity Home Medications aspirin 81 mg tablet,delayed release 81 mg PO DAILY heart health 10/19/18 [History Last Taken 03/12/19] fluticasone propionate 50 mcg/actuation nasal spray,suspension 2 spray intranasal DAILY allergies #54.6 mL 01/21/21 [Rx Last Taken Unknown] cetirizine 10 mg tablet (Zyrtec) 10 mg PO DAILY PRN allergy symptoms 11/26/21 [History Last Taken Unknown] escitalopram oxalate 20 mg tablet 20 mg PO DAILY anxiety #90 tabs 07/08/22 [Rx Last Taken Unknown] rosuvastatin 10 mg tablet (Crestor) 10 mg PO DAILY #90 tabs 07/08/22 [Rx Last Taken Unknown] sildenafil 50 mg tablet 50 mg PO DAILY PRN sexual activity #7 tabs 07/08/22 [Rx Last Taken Unknown] Allergy/AdvReac Type Severity Reaction Status Date / Time grass pollen Allergy Mild congestion Verified 09/27/22 14:33 Family History Mother CVA (cerebral vascular accident) Thyroid disorder Father Heart disease Brother Thyroid disorder Surgical History History of hernia repair Hx of colonoscopy Social History Smoking Status: Never smoker alcohol intake: current alcohol intake frequency: a few times a month Alcohol type: beer and wine substance use type: does not use what type of physical activity do you participate in: none ROS Constitutional Constitutional: Denies anorexia, chills, fatigue, fever(s), malaise or weakness Eyes Eyes: Denies blurry vision, change in vision or double vision ENT HEENT: Denies dysphagia, headache(s), hearing loss or sore throat Cardiovascular Cardiovascular: Denies chest pain, edema, orthopnea, palpitations, paroxysmal nocturnal dyspnea or syncope Respiratory/Chest Respiratory/Chest: Denies cough, shortness of breath at rest or shortness of breath with exertion Gastrointestinal Gastrointestinal: Denies abdominal pain, diarrhea, nausea or vomiting Genitourinary Genitourinary: Denies dysuria Musculoskeletal Musculoskeletal: Denies back pain, joint pain, joint swelling, muscle weakness or stiffness Neurologic Neurologic: Denies confusion, dizziness, focal weakness, headache(s), numbness, seizures, tremor(s) or weakness Psychiatric Psychiatric: Reports anxiety; Denies depression Endocrine Endocrinology: Denies change in body appearance Vital Signs Vital Signs Vital Signs: 09/27/22 14:18 09/27/22 14:22 09/27/22 14:29 Temperature 97.9 F 98.2 F Temperature Source Temporal Temporal Pulse Rate 72 81 Respiratory Rate 16 16 Blood Pressure 168/89 H 168/69 H Blood Pressure Mean 115 102 Pulse Ox 99 99 Oxygen Delivery Method Room Air Room Air Room Air 09/27/22 14:45 09/27/22 15:15 09/27/22 15:30 Temperature Temperature Source Pulse Rate 73 70 69 Respiratory Rate 16 16 16 Blood Pressure 132/75 H 159/87 H 157/94 H Blood Pressure Mean 94 111 115 Pulse Ox 97 99 98 Oxygen Delivery Method Room Air Room Air Room Air Weight Weight: 202 lb 9.677 oz Body Mass Index (BMI) 29.9 Physical Exam Const alert, oriented x3 and no apparent distress General Appearance: cooperative HEENT normocephalic, head/scalp atraumatic, moist oral mucous membranes and oropharynxnormal Eyes PERRL and EOMs intact bilaterally Neck no lymphadenopathy, supple and no JVD General: trachea midline Lymph Lymphatic: no lymphadenopathy noted and no lymphedema noted Resp normal respiratory effort, normal air movement and clear to auscultation bilaterally Cardio regular rate, regular rhythm, S1 normal heart sound, S2 normal heart sound and no murmurs GI normal to inspection, nondistended, normoactive bowel sounds, soft to palpation,non-tender and non-distended Extremity normal capillary refill, no clubbing, cyanosis or edema and no calf tenderness Skin General Skin Exam: no breakdown and turgor normal Neuro CN's II-XII intact bilaterally, no focal motor deficits and no sensory deficits noted Neuro Narrative: NIHSS is 0 Speech: speech normal Motor Exam: strength 5/5 throughout Psych thought process normal, cooperative and affect normal Appearance: appropriate Results Lab / Micro Data 09/27/22 14:20 09/27/22 14:20 Labs: Laboratory Results - last 24 hr 09/27/22 14:19: POC Glucose 129 H 09/27/22 14:20: WBC 6.9, RBC 5.17, Hgb 15.9, Hct 48.2, MCV 93.2, MCH 30.8, MCHC 33.0, RDW Std Deviation 43.8, RDW Coeff of Tracee 12.9, Plt Count 361, MPV 9.3, Immature Gran % (Auto) 0.300, Neut % (Auto) 69.4, Lymph % (Auto) 19.0, [place] % (Auto) 7.7, Eos % (Auto) 2.9, Baso % (Auto) 0.7, Absolute Neuts (auto) 4.8, Absolute Lymphs (auto) 1.31, Nucleated RBC % 0, Sodium 139, Potassium 4.0, Chloride 110 H, Carbon Dioxide 23.0, Anion Gap 6, BUN 16, Creatinine 1.46 H, Estim Creat Clear Calc 52.46, Est GFR (MDRD) Af Amer 63, Est GFR (MDRD) Non-Af 52 L, BUN/Creatinine Ratio 11.0, Glucose 133 H, Calcium 8.7, Troponin I High Sens 4 09/27/22 14:40: PT 14.0, INR 1.1, APTT 29.[address] 09/27/22 14:18 IMPRESSION: No acute intracranial process identified. Electronically Signed: Fay Palacios MD at 14:40 EDT , ADDENDUM: 09/27/22 1448 IMPRESSION: No acute intracranial process identified. N.B. : The above Results were Read Back by Fay Palacios MD to Tone Joseph DO, and understanding confirmed on 09/27/2022 14:42:47 (ET). Electronically Signed: Fay Palacios MD at 14:40 EDT , Head/Neck CTA 09/27/22 14:19 IMPRESSION: Normal CTA Head and neck with contrast. N.B. : The above Results were Read Back by Joao Garcia MD to Tone Joseph and understanding confirmed on 09/27/2022 15:09:17 (ET). Electronically Signed: Joao Garcia MD at 15:10 EDT , ADDENDUM: 09/27/22 1517 IMPRESSION: Normal CTA Head and neck with contrast. N.B. : The above Results were Read Back by Joao Garcia MD to Tone Joseph and understanding confirmed on 09/27/2022 15:09:17 (ET). Electronically Signed: Joao Garcia MD at 15:10 EDT , Assessment & Plan Assessment/Plan (1) Expressive aphasia: PLAN: Plan #Stroke like symptoms to rule out a stroke * admit to PCU * had expressive aphasia which has resolved. Had a TIA several years ago also * was supposed to be on aspirin but admits to not being compliant with it * CT of the brain showed no acute intracranial pathology * CTA head and neck showed no hemodynamically significant occlusion * order MRI of the brain and 2D echo tomorrow * PT/OT consult * allow for permissive hypertension in case of a stroke * #Hyperlipidemia: on statin #Depression; on escitalopram DVT prophylaxis: SCDs CODE STATUS: Full code * Patient and counseled extensively about different types of CODE STATUS including full code, DNR CCA and DNR CCA. Patient elects to be full code. Total [id number] time 17 minutes. Charges/Coding Visit Charges Inpatient E&M: 04190 Init Hosp L2 Procedures Hospitalists Procedures: 83486 Advncd Care Plan 30 Min 09/28/22 1517 <Electronically signed by Leonor Zuniga MD> Cosigner Signature (if applicable): CC: Dr. Edvin Tobar, DO; Dr. Leonor Zuniga MD~ Signed [facility] Work Phone: 1(395) 223-296908-21-2023 Progress note Author Leonor Zuniga [facility] September 28, 2022 3:17pm Note Date/Time September 28, 2022 2: 23pm [facility] Medical Records Department [address] [place] [address] Progress Note 09/28/22 1420 MR#: [id number] Acct: [id number] Name: LORAINE MENENDEZ Rep #:[id number] : 1960 62 From: Leonor Zuniga MD PCP: Dr. Edvin Tobar, DO Status:AD M LUDY Location: [place] [address] Subjective Subjective Patient seen and examined. He felt much better today and had no complaints. Hehad an uneventful night and review of systems otherwise negative. He had brain MRI today which was negative for any evidence of stroke. He has remained hemodynamically stable. Objective Data Objective Data Vital Signs: Vital Signs Temp Pulse Resp BP Pulse Ox O2 Del Method 98.9 F 83 16 139/85 H 99 Room Air 09/28/22 08:52 09/28/22 08:52 09/28/22 08:52 09/28/22 08:52 09/28/22 08:52 09/28/22 08:52 Oxygen Delivery Method Room Air Weight: 195 lb 8.8 oz Body Mass Index (BMI) 28.8 Intake & Output: Intake and Output for Last 24 Hours 09/26/22 09/27/22 09/28/22 23:59 23:59 23:59 Intake Total 1200 / 1200 1000 / 1000 Balance 1200 / 1200 1000 / 1000 Lab / Micro Data 09/28/22 04:40 09/28/22 04:40 Labs: Laboratory Results - last 24 hr 09/27/22 14:19: POC Glucose 129 H 09/27/22 14:20: WBC 6.9, RBC 5.17, Hgb 15.9, Hct 48.2, MCV 93.2, MCH 30.8, MCHC 33.0, RDW Std Deviation 43.8, RDW Coeff of Tracee 12.9, Plt Count 361, MPV 9.3, Immature Gran % (Auto) 0.300, Neut % (Auto) 69.4, Lymph % (Auto) 19.0, [place] % (Auto) 7.7, Eos % (Auto) 2.9, Baso % (Auto) 0.7, Absolute Neuts (auto) 4.8, Absolute Lymphs (auto) 1.31, Nucleated RBC % 0, Sodium 139, Potassium 4.0, Chloride 110 H, Carbon Dioxide 23.0, Anion Gap 6, BUN 16, Creatinine 1.46 H, Estim Creat Clear Calc 52.46, Est GFR (MDRD) Af Amer 63, Est GFR (MDRD) Non-Af 52 L, BUN/Creatinine Ratio 11.0, Glucose 133 H, Calcium 8.7, Troponin I High Sens 4 09/27/22 14:40: PT 14.0, INR 1.1, APTT 29.4 09/28/22 04:40: WBC 6.7, RBC 4.84, Hgb 14.6, Hct 44.3, MCV 91.5, MCH 30.2, MCHC 33.0, RDW Std Deviation 42.9, RDW Coeff of Tracee 12.8, Plt Count 364, MPV 9.7, Immature Gran % (Auto) 0.400, Neut % (Auto) 66.7, Lymph % (Auto) 19.6, [place] % (Auto) 9.8, Eos % (Auto) 3.1, Baso % (Auto) 0.4, Absolute Neuts (auto) 4.5, Absolute Lymphs (auto) 1.32, Nucleated RBC % 0, Sodium 139, Potassium 3.8, Chloride 110 H, Carbon Dioxide 26.0, Anion Gap 3 L, BUN 14, Creatinine 1.38 H, Estim Creat Clear Calc 55.50, Est GFR (MDRD) Af Amer 67, Est GFR (MDRD) Non-Af 55 L, BUN/Creatinine Ratio 10.1, Glucose 100, Hemoglobin A1c 5.4, Calcium 8.2 L,Triglycerides 199, Cholesterol 194, LDL Cholesterol 117, VLDL Cholesterol 40, HDL Cholesterol 37 L Radiography Diagnostic Testing: Radiology Impression Brain CT 09/27/22 14:18 IMPRESSION: No acute intracranial process identified. Electronically Signed: Fay Palacios MD at 14:40 EDT Reading Location ID and State: [facility] / [place] Tel , Service support , ADDENDUM: 09/27/22 1258 IMPRESSION: No acute intracranial process identified. N.B. : The above Results were Read Back by Fay Palacios MD to Tone Joseph DO, and understanding confirmed on 09/27/2022 14:42:47 (ET). Electronically Signed: Fay Palacios MD at 14:40 EDT , Head/Neck CTA 09/27/22 14:19 IMPRESSION: Normal CTA Head and neck with contrast. N.B. : The above Results were Read Back by Joao Garcia MD to Tone Joseph and understanding confirmed on 09/27/2022 15:09:17 (ET). Electronically Signed: Joao Garcia MD at 15:10 EDT , ADDENDUM: 09/27/22 1517 IMPRESSION: Normal CTA Head and neck with contrast. N.B. : The above Results were Read Back by Joao Garcia MD to Tone Joseph and understanding confirmed on 09/27/2022 15:09:17 (ET). Electronically Signed: Joao Garcia MD at 15:10 EDT , Chest X-Ray 09/27/22 16:27 IMPRESSION: Normal x-ray examination of the chest. Electronically Signed: Joao Garcia MD at 17:30 EDT , Brain MRI 09/28/22 09:00 IMPRESSION: No acute intracranial abnormality. Electronically Signed: Rey Cardona MD at 12:02 EDT , Physical Exam Const alert, oriented x3 and no apparent distress General Appearance: cooperative HEENT normocephalic, head/scalp atraumatic, moist oral mucous membranes and oropharynxnormal Eyes PERRL and EOMs intact bilaterally Neck no lymphadenopathy, supple and no JVD General: trachea midline Lymph Lymphatic: no lymphadenopathy noted and no lymphedema noted Resp normal respiratory effort, normal air movement and clear to auscultation bilaterally Cardio regular rate, regular rhythm, S1 normal heart sound, S2 normal heart sound and no murmurs GI normal to inspection, nondistended, normoactive bowel sounds, soft to palpation,non-tender and non-distended Extremity normal capillary refill, no clubbing, cyanosis or edema and no calf tenderness Skin General Skin Exam: no breakdown and turgor normal Neuro CN's II-XII intact bilaterally, no focal motor deficits and no sensory deficits noted Neuro Narrative: NIHSS is 0 Speech: speech normal Motor Exam: strength 5/5 throughout Psych thought process normal, cooperative and affect normal Appearance: appropriate Assessment & Plan Assessment/Plan (1) Expressive aphasia: PLAN: Plan #Stroke like symptoms to rule out a stroke * symptoms havae resolved * MRI of the brain was negative for any evidence of a stroke. Did have a TIA several years ago as well. Has not been compliant with his medication- aspirin * CT of the brain showed no acute intracranial pathology * CTA head and neck showed no hemodynamically significant occlusion * order MRI of the brain and 2D echo tomorrow * PT/OT consult * 2D echo done and read is pending. * EEG ordered as per neuro recommendation * #Hyperlipidemia: on statin #Depression; on escitalopram DVT prophylaxis: SCDs CODE STATUS: Full code * Charges/Coding Visit Charges Inpatient E&M: 35126 Subs Hosp L2 09/28/22 4717 <Electronically signed by Leonor Zuniga MD> Leonor Zuniga MD Cosigner Signature (if applicable): CC: ~ Signed [facility] Work Phone: [phone] Discharge summary Author Irene Lerma [facility] September 27, 2022 5:36pm Note Date/Time September 27, 2022 2: 33pm [facility] Medical Records Department [address] [place] [address] Emergency Department Summary 09/27/22 MR#: [id number] Acct: [id number] Name: LORAINE MENENDEZ Rep #:[id number] : 1960 62 From: Tone Joseph DO PCP: Dr. Edvin Tobar, DO Status:AD M LUDY Location: [place] [address] HPI <JUVENCIO James - Last Filed: 09/27/22 17:36> History of Present Illness Chief Complaint: Neuro S/Sx Narrative Narrative: Patient presenting today with his and friend due to concerns that he is having a TIA or stroke. Patient has a prior history of a TIA. Today at around 1345 he began to have expressive aphashia. reports that they were [place] and she asked him a question and patient seemed to be confused regarding what she was saying and was not able to answer. He reports that he just was notable to get the words out that he wanted to. He then looked down on his phone and felt like the letters were not where they were supposed to be. He was trying to read street signs on the way here but was unable to make out the words. He reports that the closer he got to the hospital the easier it got to read road signs. He thinks that his symptoms have completely resolved. However, feels that he is still acting like he is out of it. She reports ahistory of TIA, depression, hyperlipidemia, and anxiety. Patient is supposed spring taking a baby aspirin daily, patient has not taken this for months. Patient's and friend are at bedside. <Dr. Tone Joseph DO - Last Filed: 09/27/22 17:06> Narrative Narrative: Patient presenting today with his and friend due to concerns that he is having a TIA or stroke. Patient has a prior history of a TIA. Today at around 1345 he began to have expressive aphashia. reports that they were on [place] and she asked him a question and patient seemed to be confused regarding what she was saying and was not able to answer. He reports that he just was notable to get the words out that he wanted to. He then looked down on his phone and felt like the letters were not where they were supposed to be. He was trying to read street signs on the way here but was unable to make out the words. He reports that the closer he got to the hospital the easier it got to read road signs. He thinks that his symptoms have completely resolved. However, feels that he is still acting like he is out of it. She reports ahistory of TIA, depression, hyperlipidemia, and anxiety. Patient is supposed spring taking a baby aspirin daily, patient has not taken this for months. Patient's and friend are at bedside [facility] <JUVENCIO James - Last Filed: 09/27/22 17:36> [facility] Medical History (Updated 09/27/22 @ 15:[address] Tone Joseph, DO) Chronic anxiety Fall Heart murmur High cholesterol Migraine Multiple fractures of ribs of left side Pneumothorax, acute Rib fracture Rib fracture Seasonal allergies TIA (transient ischemic attack) Ulnar neuropathy at elbow of right upper extremity Home Medications aspirin 81 mg tablet,delayed release 81 mg PO DAILY heart health 10/19/18 [History Last Taken 03/12/19] fluticasone propionate 50 mcg/actuation nasal spray,suspension 2 spray intranasal DAILY allergies #54.6 mL 01/21/21 [Rx Last Taken Unknown] cetirizine 10 mg tablet (Zyrtec) 10 mg PO DAILY PRN allergy symptoms 11/26/21 [History Last Taken Unknown] escitalopram oxalate 20 mg tablet 20 mg PO DAILY anxiety #90 tabs 07/08/22 [Rx Last Taken Unknown] rosuvastatin 10 mg tablet (Crestor) 10 mg PO DAILY #90 tabs 07/08/22 [Rx Last Taken Unknown] sildenafil 50 mg tablet 50 mg PO DAILY PRN sexual activity #7 tabs 07/08/22 [Rx Last Taken Unknown] Allergy/AdvReac Type Severity Reaction Status Date / Time grass pollen Allergy Mild congestion Verified 09/27/22 14:33 Family History Mother CVA (cerebral vascular accident) Thyroid disorder Father Heart disease Brother Thyroid disorder Surgical History History of hernia repair Hx of colonoscopy Social History Smoking Status: Never smoker alcohol intake: current alcohol intake frequency: a few times a month Alcohol type: beer and wine substance use type: does not use what type of physical activity do you participate in: none ROS <JUVENCIO James - Last Filed: 09/27/22 17:36> ROS ED Constitutional Constitutional ED: Denies chills or fever(s) Eyes Eyes: Denies blurry vision or diplopia Cardiovascular Cardiovascular: Denies chest pain or palpitations Respiratory/Chest Respiratory/Chest: Denies cough, dyspnea, tachypnea or wheezing Gastrointestinal Gastrointestinal: Denies abdominal pain, constipation, diarrhea, nausea or vomiting Genitourinary Genitourinary ED: Denies dysuria, hematuria or urinary urgency Musculoskeletal Musculoskeletal: Denies arthralgias, back pain, myalgias or neck pain Integumentary Denies abscess, Abrasions or rash Neurologic Neurologic: Denies confusion, dizziness or paresthesias Psychiatric Psychiatric: Denies anxiety, depression, suicidal ideation or suicidal thoughts Allergic/Immunologic Allergic/Immunologic ED: Denies lip swelling, mouth swelling or urticaria EXAM <JUVENCIO James - Last Filed: 09/27/22 17:36> Physical Exam Const Vital Signs: 09/27/22 14:18 09/27/22 14:22 09/27/22 14:29 Temperature 97.9 F 98.2 F Temperature Source Temporal Temporal Pulse Rate 72 81 Respiratory Rate 16 16 Blood Pressure 168/89 H 168/69 H Blood Pressure Mean 115 102 Pulse Ox 99 99 Oxygen Delivery Method Room Air Room Air Room Air 09/27/22 14:45 09/27/22 15:15 09/27/22 15:35 Temperature Temperature Source Pulse Rate 73 70 69 Respiratory Rate 16 16 16 Blood Pressure 132/75 H 159/87 H 157/94 H Blood Pressure Mean 94 111 115 Pulse Ox 97 99 98 Oxygen Delivery Method Room Air Room Air Room Air 09/27/22 15:55 09/27/22 16:00 09/27/22 16:30 Temperature Temperature Source Pulse Rate 67 65 65 Respiratory Rate 16 16 15 Blood Pressure 176/96 H 171/89 H 169/108 H Blood Pressure Mean 122 116 128 Pulse Ox 98 98 98 Oxygen Delivery Method Room Air Room Air Room Air Positive well nourished, well developed and no apparent distress General Appearance ED: well developed HEENT Reports normocephalic and head/scalp atraumatic Mouth ED: Yes moist mucous membranes normal Eyes PERRL and EOMs intact bilaterally Neck full ROM and supple Chest Wall inspection of chest normal Resp normal respiratory effort and clear to auscultation bilaterally Cardio regular rate and regular rhythm GI soft to palpation, non-tender, non-distended and no masses Back/Spine normal ROM and normal to inspection Extremity normal to inspection and full ROM Neuro oriented x3, CN's II-XII intact bilaterally, moves all extremities, no focal motor deficits and no sensory deficits noted Sensorium / Orientation: awake and alert Coordination / Balance: [id number] test normal and [id number] test normal Speech: speech normal Motor Exam: strength 5/5 throughout; Negative for pronator drift Psych mental status grossly normal and thought process normal Skin no rashes or lesions noted and no wounds <Dr. Tone Joseph, - Last Filed: 09/27/22 17:06> Physical Exam Const Vital Signs: 09/27/22 14:18 09/27/22 14:22 09/27/22 14:29 Temperature 97.9 F 98.2 F Temperature Source Temporal Temporal Pulse Rate 72 81 Respiratory Rate 16 16 Blood Pressure 168/89 H 168/69 H Blood Pressure Mean 115 102 Pulse Ox 99 99 Oxygen Delivery Method Room Air Room Air Room Air 09/27/22 14:45 09/27/22 15:15 09/27/22 15:35 Temperature Temperature Source Pulse Rate 73 70 69 Respiratory Rate 16 16 16 Blood Pressure 132/75 H 159/87 H 157/94 H Blood Pressure Mean 94 111 115 Pulse Ox 97 99 98 Oxygen Delivery Method Room Air Room Air Room Air 09/27/22 15:55 09/27/22 16:00 09/27/22 16:30 Temperature Temperature Source Pulse Rate 67 65 65 Respiratory Rate 16 16 15 Blood Pressure 176/96 H 171/89 H 169/108 H Blood Pressure Mean 122 116 128 Pulse Ox 98 98 98 Oxygen Delivery Method Room Air Room Air Room Air [facility] <JUVENCIO James - Last Filed: 09/27/22 17:36> [facility] Narrative Medical decision making narrative: Patient presenting today with concerns that he is having a TIA. Around 1:45 PM patient began to have expressive aphasia and was having a difficult time readingwords. By the time he arrived here his symptoms had resolved. His NIH is 0. Teleneurologist did evaluate patient and given his history of TIA they felt thatpatient should be admitted for further work-up. He did take 2 aspirin prior to arrival and is supposed to be taking aspirin daily but has not been taking it like he is supposed to. Around 1535 the nurse told the attending that patient was having mild symptoms again of expressive aphasia and was only able to read 2-3 word phrases but not a sentence. His NIH is now 1. Teleneurologist has been called back and is evaluating patient. 153 Dr Joseph was called back to bedside, patient is having mild symptoms again of expressive aphasia. Patient is still having headache and some confusion as well. Patient is able to read 2/3 word phrases, but when you start reading sentences, patient is having a harder time. He can see them, but hard time withexpressive aphasia. We are having reevaluation from the stroke team. Patient'sblood pressure has been slightly elevated, patient's blood pressure has not beenover 200s/100s. There was one erroneous elevated blood pressure at 1535, this will be rechecked manually. Critical care time 55 minutes exclusive from separate billable procedures that were performed. The following was considered in the determination of critical care but not limited to the level of medical decision making, intensive cardiac and/or respiratory monitoring, frequent vital sign monitoring, evaluation of laboratory studies, evaluation of radiographic studies, oxygen monitoring, and constant monitoring and speaking to family at bedside. Lab Data Labs: Laboratory Results - last 24 hr 09/27/22 09/27/22 09/27/22 14:19 14:20 14:40 WBC 6.9 RBC 5.17 Hgb 15.9 Hct 48.2 MCV 93.2 MCH 30.8 MCHC 33.0 RDW Std Deviation 43.8 RDW Coeff of Tracee 12.9 Plt Count 361 MPV 9.3 Immature Gran % (Auto) 0.300 Neut % (Auto) 69.4 Lymph % (Auto) 19.0 [place] % (Auto) 7.7 Eos % (Auto) 2.9 Baso % (Auto) 0.7 Absolute Neuts (auto) 4.8 Absolute Lymphs (auto) 1.31 Nucleated RBC % 0 PT 14.0 INR 1.1 APTT 29.4 Sodium 139 Potassium 4.0 Chloride 110 H Carbon Dioxide 23.0 Anion Gap 6 BUN 16 Creatinine 1.46 H Estim Creat Clear Calc 52.46 Est GFR (MDRD) Af Amer 63 Est GFR (MDRD) Non-Af 52 L BUN/Creatinine Ratio 11.0 Glucose 133 H Calcium 8.7 Troponin I High Sens 4 POC Glucose 129 H Radiography Diagnostic Testing: Clinical Impression(s) from Imaging Studies Brain CT 09/27/22 14:18 IMPRESSION: No acute intracranial process identified. Electronically Signed: Fay Palacios MD at 14:40 EDT , ADDENDUM: 09/27/22 1448 IMPRESSION: No acute intracranial process identified. N.B. : The above Results were Read Back by Fay Palacios MD to Tone Joseph DO, and understanding confirmed on 09/27/2022 14:42:47 (ET). Electronically Signed: Fay Palacios MD at 14:40 EDT , Head/Neck CTA 09/27/22 14:19 IMPRESSION: Normal CTA Head and neck with contrast. N.B. : The above Results were Read Back by Joao Garcia MD to Tone Joseph and understanding confirmed on 09/27/2022 15:09:17 (ET). Electronically Signed: Joao Garcia MD at 15:10 EDT , ADDENDUM: 09/27/22 1517 IMPRESSION: Normal CTA Head and neck with contrast. N.B. : The above Results were Read Back by Joao Garcia MD to Tone Joseph and understanding confirmed on 09/27/2022 15:09:17 (ET). Electronically Signed: Joao Garcia MD at 15:10 EDT , Chest X-Ray 09/27/22 16:27 IMPRESSION: Normal x-ray examination of the chest. Electronically Signed: Joao Garcia MD at 17:30 EDT , EKG Initial EKG: Comments: EKG interpretation. Normal sinus rhythm at 73 beats a minute. Left axis deviation. 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 QTc of 462. Artifact noted. EKG reviewed and interpreted by attending ED physician. <Dr. Tone Joseph, DO - Last Filed: 09/27/22 17:06> [facility] Narrative Medical decision making narrative: Patient presenting today with concerns that he is having a TIA. Around 1:45 PM patient began to have expressive aphasia and was having a difficult time readingwords. By the time he arrived here his symptoms had resolved. His NIH is 0. Teleneurologist Dr Sharma did evaluate patient and given his history of TIA they felt that patient should be admitted for further work-up. He did take 2 aspirinprior to arrival and is supposed to be taking aspirin daily but has not been taking it like he is supposed to. Around 1535 the nurse told the attending that patient was having mild symptoms again of expressive aphasia and was only able to read 2-3 word phrases but not asentence. His NIH is now 1. Teleneurologist Dr Sharma has been called back and isevaluating patient. It was recommended to start patient on Plavix 600 mg along with given 1 L of IV fluid. Patient will still be admitted [facility] with neurology consultation as needed and the recommendation of EEG from Dr Sharma. 153 Dr Joseph was called back to bedside, patient is having mild symptoms again of expressive aphasia. Patient is still having headache and some confusion as well. Patient is able to read 2/3 word phrases, but when you start reading sentences, patient is having a harder time. He can see them, but hard time withexpressive aphasia. We are having reevaluation from the stroke team. Patient'sblood pressure has been slightly elevated, patient's blood pressure has not beenover 200s/100s. There was one erroneous elevated blood pressure at 1535, this will be rechecked manually. I, Dr Joseph, have reviewed the above progress note and course of action in the ER;agree with the above. I have personally seen and evaluated this patient, gone over history and physical, and discussed disposition and treatment plan with thepatient. Critical care time 55 minutes exclusive from separate billable procedures that were performed. The following was considered in the determination of critical care but not limited to the level of medical decision making, intensive cardiac and/or respiratory monitoring, frequent vital sign monitoring, evaluation of laboratory studies, evaluation of radiographic studies, oxygen monitoring, and constant monitoring and speaking to family at bedside. Lab Data Attestation: I reviewed the patient's lab results. Labs: Laboratory Results - last 24 hr 09/27/22 09/27/22 09/27/22 14:19 14:20 14:40 WBC 6.9 RBC 5.17 Hgb 15.9 Hct 48.2 MCV 93.2 MCH 30.8 MCHC 33.0 RDW Std Deviation 43.8 RDW Coeff of Tracee 12.9 Plt Count 361 MPV 9.3 Immature Gran % (Auto) 0.300 Neut % (Auto) 69.4 Lymph % (Auto) 19.0 [place] % (Auto) 7.7 Eos % (Auto) 2.9 Baso % (Auto) 0.7 Absolute Neuts (auto) 4.8 Absolute Lymphs (auto) 1.31 Nucleated RBC % 0 PT 14.0 INR 1.1 APTT 29.4 Sodium 139 Potassium 4.0 Chloride 110 H Carbon Dioxide 23.0 Anion Gap 6 BUN 16 Creatinine 1.46 H Estim Creat Clear Calc 52.46 Est GFR (MDRD) Af Amer 63 Est GFR (MDRD) Non-Af 52 L BUN/Creatinine Ratio 11.0 Glucose 133 H Calcium 8.7 Troponin I High Sens 4 POC Glucose 129 H Radiography Diagnostic Testing: Clinical Impression(s) from Imaging Studies Brain CT 09/27/22 14:18 IMPRESSION: No acute intracranial process identified. Electronically Signed: Fay Palacios MD at 14:40 EDT , ADDENDUM: 08/20/23 1448 IMPRESSION: No acute intracranial process identified. N.B. : The above Results were Read Back by Fay Palacios MD to Tone Joseph DO, and understanding confirmed on 09/27/2022 14:42:47 (ET). Electronically Signed: Fay Palacios MD at 14:40 EDT , Head/Neck CTA 09/27/22 14:19 IMPRESSION: Normal CTA Head and neck with contrast. N.B. : The above Results were Read Back by Joao Garcia MD to Tone Joseph and understanding confirmed on 09/27/2022 15:09:17 (ET). Electronically Signed: Joao Garcia MD at 15:10 EDT , ADDENDUM: 09/27/22 1517 IMPRESSION: Normal CTA Head and neck with contrast. N.B. : The above Results were Read Back by Joao Garcia MD to Tone Joseph and understanding confirmed on 09/27/2022 15:09:17 (ET). Electronically Signed: Joao Garcia MD at 15:10 EDT , Chest X-Ray 09/27/22 16:27 IMPRESSION: Normal x-ray examination of the chest. Electronically Signed: Joao Garcia MD at 17:30 EDT , EKG Initial EKG: Comments: EKG interpretation. Normal sinus rhythm at 73 beats a minute. Left axis deviation. 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 QTc of 462. Artifact noted. Discharge Plan Dx/Rx/DC Orders Clinical Impression: Expressive aphasia, Headache Disposition Disposition: Acute Care Hospital [facility] What to do if you have Problems For any increased pain, shortness of breath, bleeding, nausea or vomiting, chestpain, or any unexpected problems, contact your Primary Care Provider. Call [facility] ([phone]) or report to the closest Emergency Room. Call 911 if necessary. 09/27/22 1706 <Electronically signed by Tone Joseph DO> Cosigner Signature (if applicable): 09/27/22 1736 <Electronically signed by Irene HENNING> CC: Dr. Edvin Tobar, ~ Signed [facility] Work Phone: Evaluation note* Diagnosis Onset Date Resolution Status Difficulty swallowing acute [facility] Work Phone: Evaluation note* Diagnosis Onset Date Resolution Status Depression acute Difficulty swallowing acute Erectile dysfunction acute High cholesterol acute Chronic anxiety [facility] Work Phone: Evaluation note* Diagnosis Onset Date Resolution Status Depression acute Difficulty swallowing acute Erectile dysfunction acute High cholesterol acute Chronic anxiety chronic Expressive aphasia acute Headache acute [facility] Work Phone: Evaluation note* Diagnosis Onset Date Resolution Status Expressive aphasia resolved Headache resolved Expressive aphasia resolved Right groin pain noneactive Hospital discharge follow-up noneactive Iliotibial band syndrome affecting right lower leg acute TIA (transient ischemic attack) acute Chronic anxiety [facility] Work Phone: Reason for referral (narrative)No reason for referral information [facility] Work Phone: Summary Purpose Family History No Family History Records Found Relationship Condition Age at Onset Recorded Date/T carrie mother Cerebrovascular accident (CVA) Unknown Disorder of thyroid Unknown father Cardiac disease Unknown brother Disorder of thyroid Unknown Advance Directives No Advanced Directives Records Found Advance Directive Response Recorded Date/ Time Living Will Yes June 09, 2020 2: 47pm Power of Railroad Mechanic Yes June 09, 2020 2:47pm Advance Directive Response Recorded Date/ Time Name of Medical Power of Railroad Mechanic Suzanne schreiber September 27, 2022 5:48pm Living Will Yes September 27 3 5:48pm Power of Railroad Mechanic Yes September 27 023 5:48pm Advance Directive Response Recorded Date/ Time Name of Medical Power of Railroad Mechanic Suzanne schreiber September 27, 2022 4:48pm Living Will Yes September 27 4:48pm Power of Railroad Mechanic Yes September 27 023 4:48pm Chief Complaint and Reason for Visit Chief Complaint ACUTE- DIFFICULTY SW ALLOWING SWALLOWING PROBLEMS Reason for Visit Difficulty swallowin g Chief Complaint SWALLOWING PROBLEMS YEARLY Reason for Visit Depression Difficulty swallowing Erectile dysfunction High cholesterol Chronic anxiety Chief Complaint YEARLY TIA TIA (cardiology) Reason for Visit Depression Difficulty swallowing Erectile dysfunction High cholesterol Chronic anxiety Expressive aphasia Headache Chief Complaint TIA TIA (cardiology) TIA (cardiology) [facility] FU-DR TOBAR PATIENT RIGHT LOWER QUADRANT PAIN 3 M FU EORDER- HIP- right groin pain Reason for Visit Expressive aphasia Headache Expressive aphasia Right groin pain Hospital discharge follow-up Iliotibial band syndrome affecting right lower leg TIA (transient ischemic attack) Chronic anxiety Chief Complaint Admit Date 6 M FU May 03, 2024 11: 25am Reason for Visit Admit Date Depression May 03, 2024 11: 25am High cholesterol May 03, 2024 11: 25am Additional Source Comments (unrecognized sect ion and content) No Status Records FoundNo Status Records Found INFORMATION SOURCE (unrecogn ized section and content) DATE CREATED AUTHOR 08/03/2017 [facility] DATE CREATED AUTHOR AUTHOR'S ORGANIZ ATION 05/09/2024 [facility] Care Teams (unrecognized sec tion and content) Team Status: Active Member Role Status Dates Dr. Edvin Tobar , DO Family Provider Active Dr. Edvin Tobar , DO Primary Care Provider Active Team Status: Inactive Member Role Status Dates Dr. Edvin Tobar , DO Primary Care Pr ovider, Attending Provider, Referring Provider Active Team Status: Inactive Member Role Status Dates Dr. Edvin Tobar , DO Primary Care Provider, Attend ing Provider Active Team Status: Active Member Role Status Dates Dr. Edvin Tobar , DO Primary Care Provider Active Dr. Tone Joseph , DO Emergency Provider Active Dr. Leonor Zuniga MD Admit Provider, Attending Provider, Other Provider Active Team Status: Active Member Role Status Dates Dr. Edvin Tobar , DO Primary Care Provider Active Dr. Joan Mora MD Attending Provider Active Team Status: Inactive Member Role Status Dates Dr. Edvin Tobar , DO Primary Care Provider Active Dr. Tone Joseph , DO Emergency Provider Active Dr. Leonor Zuniga MD Admit Provider, Attending Prov ider Active Team Status: Active Member Role Status Dates Dr. Edvin Tobar , DO Primary Care Provider Active Dr. Joan Mora MD Attending Provider Active Dr. Leonor Zuniga MD Referring Provider Active Team Status: Inactive Member Role Status Dates Dr. Edvin Tobar , DO Primary Care Provider, Referr ing Provider Active Dr. Cara Mehta MD Attending Provider Active Team Status: Inactive Member Role Status Dates Dr. Edvin Tobar , DO Primary Care Provider Active Dr. Cara Mehta MD Attending Provider, Referring Provider Active Team Status: Inactive Member Role Status Dates Dr. Cara Mehta MD Attending Provider, Referring Provider Active Dr. Edvin Tobar DO Primary Care Provider Active Team Status: Inactive Member Role Status Dates Dr. Edvin Tobar DO Primary Care Provider Active Start: May 03, 2024 End: May 03, 2024 Dr. Edvin Tobar DO Attending Provider Active Start: May 03, 2024 End: May 03, 2024 Dr. Edvin Tobar DO Referring Provider Active Start: May 03, 2024 End: May 03, 2024 Goals (unrecognized section and content) Goals may be documented in a n alternate sectionGoals may be documented in an alternate sectionGoals may be documented in an alternate section FOR RECORDS PERTAINING TO PATIENTS WHO ARE OR HAVE BEEN ENROLLED IN A CHEMICAL DEPENDENCY/SUBSTANCEABUSE PROGRAM, SOME INFORMATION MAY BE OMITTED. This clinical summary was aggregated from multiple sources. Caution should be exercised in using it in the provision of clinical care. This summary normalizes information from multiple sources, and as a consequence, information in this document may materially change the coding, format and clinical context of patient data. In addition, data may be omitted in some cases. CLINICAL DECISIONS SHOULD BE BASED ON THE PRIMARY CLINICAL RECORDS. [employer] [facility]. provides no warranty or guarantee of the accuracy or completeness [phone] in this [id number]
[2025-01-19 12:33] LABS: Hematocrit 47.4 % (40-54); Hemoglobin 16.0 g/dL (13.0-16.5); Immature Granulocytes Count 0.010 X10^3/uL (0.0-0.0); Mean Corp Hgb Conc 33.8 g/dL (32-36); Mean Corpuscular Volume 89.4 fL (80-94); Mean Platelet Vol. 10.2 fl (6.2-12.0); NRBC Flagged by Analyzer 0 % (0-5); Platelet Count 401 K/mm3 (150-450); RBC Distribution Width CV 12.6 % (11.6-14.6); RBC Distribution Width SD 41.2 fl (35.1-43.9); Red Blood Count 5.30 M/mm3 (4.6-6.2); White Blood Count 6.1 K/mm3 (4.4-11.0)
[2025-01-19 12:49] LABS: AST(SGOT) 29 U/L (<=37); Alanine Aminotransfer ALT/SGPT 31 U/L (<=46); Albumin, Serum 4.6 g/dL (3.4-4.8); Alkaline Phosphatase 59 U/L (40-129); Anion Gap 11 (5-15); BUN 20 mg/dL (4-19); BUN/Creat Ratio 15.1 RATIO (10-20); Calcium,Total 9.6 mg/dL (7.6-11.0); Carbon Dioxide 22.2 mmol/L (21.0-32.0); Chloride 105 mmol/L (98-108); Cholesterol 143 mg/dL (<=200); Globulin 3.2 g/dL (2.2-4.2); Glucose 111 mg/dL (70-99); Low Density Lipoprotein Calc. 84 mg/dL; Potassium 4.7 mmol/L (3.3-5.1); Triglycerides 99 mg/dL; Very Low Density Lipoprotein 20 mg/dL (5-40); cholesterol:hdl ratio screen 3.57
[2025-01-19 16:31] LABS: Xtra Tube EP Lab EXTRA TUBE
== END | disposition home or self-care (01) ==
PROVIDERS: PCP Family Medicine; Visit Provider Physician Assistant
DX: I10 Essential (primary) hypertension (principal); E78.00 Pure hypercholesterolemia, unspecified
CPT/HCPCS: 36415; 80053; 80061; 84443; 85025